=== PATIENT | female | born 1935 | race Caucasian/White ===

== ENCOUNTER 2019-02-17 17:22 | Observation (INO) | payer OTHER ==
[~2019-02-17] VITALS: Ht 157.5 cm; Wt 83.4 kg
[~2019-02-17 17:22] MED LIST: ACET500 PO; ASCO500 PO; Advil Pm Liqui1 EACH PO; Apple Cider Vi300 MG PO; CALCIUM 500 +1 EAC3 PO; CARV6.25 PO; CENTRUM SILVER1 EAC2 PO; CEPH500 PO; CLON1 PO; CYAN1000 PO; CYAN500 PO; CYCL10 PO; ESTRADIOL PO; FENO160 PO; FURO20; FURO20 PO; GABA300 PO; HYDACE5 PO; HYDR1TAB94 PO; LISI20 PO; LOVA40 PO; Norco 5-325 Ta1 EACH PO; OXYB5 PO; Omega 3 1,0001 EACH PO; Oyster Shell C500 MG PO; POTCHL10ER; PYRI100 PO; TRAZ100 PO; TRAZ50 PO; TRIE10TC TOP; VITAMIN D-32000 UNIT PO; VITAMIN D31 ML PO; Vitamin C100 M1 PO; ZOLP10 PO; ZOLPIDEM PO
[2019-02-17 17:37] LABS: Source, Urine Clean Catch
[2019-02-17 17:42] LABS: Bilirubin, Urine Neg (Neg); Blood, Urine 3+ (Neg); Glucose Qualitative, Urine Neg (Neg); Ketones, Urine Neg (Neg); Leukocyte Esterase, Urine 1+ (Neg); Nitrite, Urine Pos (Neg); Protein, Urine 1+ (Neg); Specific Gravity, Urine 1.015 (1.003-1.022); Urobilinogen, Urine NORM (Normal)
[2019-02-17 17:45] LABS: BASOPHILS PERCENT AUTO 1 % (0-2); EOSINOPHILS ABSOLUTE AUTO 0.35 K/mm3 (0.00-0.68); EOSINOPHILS PERCENT AUTO 3 % (0-6); Hematocrit 38.1 % (33.0-51.0); Hemoglobin 12.3 g/dL (11.5-16.0); IMMATURE GRAN ABSOLUTE AUTO 0.02 K/mm3 (0.00-0.10); IMMATURE GRAN PERCENT AUTO 0 % (0-1); LYMPHOCYTES PERCENT AUTO 26 % (21-46); MONOCYTES ABSOLUTE AUTO 0.85 K/mm3 (0.16-1.47); MONOCYTES PERCENT AUTO 8 % (4-13); Mean Corpuscular HGB 31.6 pg (26.0-34.0); Mean Corpuscular HGB Conc 32.3 g/dL (31.5-36.5); Mean Corpuscular Volume 98 fL (80-100); Mean Platelet Volume 9.2 fL (9.1-12.4); NEUTROPHILS ABSOLUTE AUTO 6.24 K/mm3 (1.96-9.15); NEUTROPHILS PERCENT AUTO 61 % (41-73); Platelet Count 305 K/mm3 (150-400); RDW Standard Deviation 46.3 fL (35.1-46.3); Red Blood Cell Count 3.89 M/mm3 (3.80-5.20); White Blood Cell Count 10.16 K/mm3 (4.00-11.30)
[2019-02-17 17:55] LABS: Appearance, Urine Clear (Clear); Color, Urine Yellow (P-Yellow)
[2019-02-17 17:56] LABS: Bacteria Many /hpf; Mucus Light (0-Heavy); Squamous Epithelial Cells Mod /hpf (Few)
[2019-02-17 18:04] LABS: U Amphetamine Screen Not Detected; U Barbituate Screen Not Detected; U Benzodiazapine Screen Not Detected; U Buprenorphine Screen Not Detected; U Cannabinoids Screen Not Detected; U Cocaine Screen Not Detected; U Methadone Screen Not Detected; U Methamphetamine Screen Not Detected; U Opiates Screen DETECTED; U Oxycodone Screen Not Detected; U Phencyclidine Screen Not Detected; U Propoxyphene Screen Not Detected
[2019-02-17 18:20] LABS: Alanine Aminotransfer (ALT/SGP 22 U/L (12-78); Albumin/Globulin Ratio 1.1 (0.8-1.8); Alk Phos 60 U/L (50-136); Anion Gap 5 mmol/L (6-16); Aspartate Aminotrans (AST/SGOT 16 U/L (12-37); Bilirubin, Total 0.5 mg/dL (0.1-1.0); Blood Urea Nitrogen 11 mg/dL (8-24); Bun/Creatinine Ratio 14.5 (12.0-20.0); CO2, Blood 27 mmol/L (21-32); Calcium, Blood 9.3 mg/dL (8.5-10.1); Chloride, Blood 104 mmol/L (98-108); Creatinine, Blood 0.76 mg/dL (0.40-1.00); Globulin, Blood 3.5 g/dL (2.2-4.0); Glomerular Filtration Rate >60 (60-); Glucose, Blood 99 mg/dL (70-99); Potassium, Blood 4.1 mmol/L (3.5-5.5); Salicylate <1.7 mg/dL (2.8-20.0); Sodium, Blood 136 mmol/L (136-145); Total Protein, Blood 7.5 g/dL (6.4-8.2)
[2019-02-17 18:21] LABS: Acetaminophen, Random 17.1 ug/mL (10.0-30.0); Ethanol (Alcohol), Blood, Med <3 mg/dL
--- NOTE | 2019-02-17 22:12 | NUR ---
RECEIVED REPORT FROM CHITO BAEZA RN. PT ARRIVED TO RM 333 VIA W/C. 1PA TO BED. ALERT AND ORIENTED TO PERSON,PLACE, AND FAMILY. RESP E/U ON RA. NO COMPLAINTS OF PAIN OR NAUSEA. PT ORIENTED TO CALL LT SYSTEM. CALL LT PLACED WITHIN REACH. BED ALARM ON FOR SAFETY. WILL CONTINUE TO MONITOR AND PROVIDE CARE.
--- NOTE | 2019-02-18 02:04 | NUR ---
PT CRYING IN BED, STATES SHE DOESN'T LIKE TO BE ALONE IN THE HOSPITAL. REASSURED PT THAT STAFF WOULD RESPOND TO HER NEEDS AND SHE WASN'T ALONE AND THAT HER FAMILY WOULD COME THIS MORNING. PT WORRIED THEY WON'T BE ABLE TO FIND HER, REASSURED PT THAT THEY WOULD FIND HER. CUP OF HOT COCOA GIVEN TO PT PER REQUEST, PT HOPES THIS WILL HAVE HER GO TO SLEEP. BED ALARM ON. CALL LT IN REACH.
--- NOTE | 2019-02-18 04:26 | NUR ---
SHIFT SUMMARY: ER ADMIT LAST NIGHT AT 2212. ALERT AND ORIENTED. APPEARS MENTATION HAS CLEARED. PT WAS ABLE TO ANSWER QUESTIONS APPROPRIATELY. VSS. 1 ASSIST TO THE BATHROOM USING FWW. CHRONIC ARTHRITIC PAIN TO HER JOINTS. MEDICATED WITH FENTANYL 25 MCG IV X 2 WITH SMALL PAIN RELIEF. REPOSITIONED PT FOR COMFORT T/O THE SHIFT. NO ACUTE CHANGES. WILL CONTINUE TO MONITOR AND PROVIDE CARE UNTIL SHIFT REPORT TO ONCOMING NURSE.
--- NOTE | 2019-02-18 04:49 | NUR ---
PT TEARFUL, MISSING HER FAMILY. WANTS TO GO HOME. SHE STATES CRYING MAKES HER FEEL BETTER. CALL LT IN REACH.
[2019-02-18 05:00] LABS: Hematocrit 35.2 % (33.0-51.0); Hemoglobin 11.3 g/dL (11.5-16.0); Mean Corpuscular HGB 31.6 pg (26.0-34.0); Mean Corpuscular HGB Conc 32.1 g/dL (31.5-36.5); Mean Corpuscular Volume 98 fL (80-100); Mean Platelet Volume 9.6 fL (9.1-12.4); Platelet Count 272 K/mm3 (150-400); RDW Coefficient Variation 12.7 % (11.7-14.2); RDW Standard Deviation 45.9 fL (35.1-46.3); Red Blood Cell Count 3.58 M/mm3 (3.80-5.20); White Blood Cell Count 9.99 K/mm3 (4.00-11.30)
[2019-02-18 05:20] LABS: Alanine Aminotransfer (ALT/SGP 22 U/L (12-78); Albumin, Blood 3.3 g/dL (3.4-5.0); Albumin/Globulin Ratio 1.1 (0.8-1.8); Alk Phos 55 U/L (50-136); Anion Gap 4 mmol/L (6-16); Aspartate Aminotrans (AST/SGOT 19 U/L (12-37); Bilirubin, Total 0.4 mg/dL (0.1-1.0); Blood Urea Nitrogen 13 mg/dL (8-24); Bun/Creatinine Ratio 15.9 (12.0-20.0); CO2, Blood 29 mmol/L (21-32); Calcium, Blood 8.8 mg/dL (8.5-10.1); Chloride, Blood 107 mmol/L (98-108); Creatinine, Blood 0.82 mg/dL (0.40-1.00); Globulin, Blood 3.1 g/dL (2.2-4.0); Glomerular Filtration Rate >60 (60-); Glucose, Blood 102 mg/dL (70-99); Potassium, Blood 3.8 mmol/L (3.5-5.5); Sodium, Blood 140 mmol/L (136-145); Total Protein, Blood 6.4 g/dL (6.4-8.2)
--- NOTE | 2019-02-18 05:34 | NUR ---
PT QUIETLY RESTING AT THIS TIME. CALL LT IN REACH.
[2019-02-18] MEDS ORDERED: TRAM50 PO (12:50)
--- NOTE | 2019-02-18 14:38 | NUR ---
PT TO DISCHARGE HOME. IV REMOVED . FIELD START. NURSE WENT OVER MEDICATIONS WITH PATIENT AND FAMILY AND STRESSED THE IMPORTANCE OF ONLY TAKING HER PAIN MEDS NOT HER SO'S NARCOTICS. FAMILY AND PATIENT BOTH EXPRESSED UNDERSTANDING. PATIENT WC'D DOWN TO CAR TO BE TAKEN HOME BY FAMILY. HARD SCRIPT GIVEN TO SON TO SENIOR [facility] AT PHARMACY.
== END 2019-02-18 15:15 | disposition home or self-care (01) ==
LOC: ER 17:22 → MEDS 17:23
PROVIDERS: Emergency Medicine; ADMIT Internal Medicine
DX: G92 Toxic encephalopathy (principal); E86.0 Dehydration; E78.5 Hyperlipidemia, unspecified; I10 Essential (primary) hypertension; M54.9 Dorsalgia, unspecified; G89.29 Other chronic pain; R53.1 Weakness; M16.11 Unilateral primary osteoarthritis, right hip; Z79.899 Other long term (current) drug therapy; Z88.2 Allergy status to sulfonamides; Z86.79 Personal history of other diseases of the circulatory system
CPT/HCPCS: 36415; 70450; 71046; 80053; 81001; 83605; 85025; 85027; 87040; 87077; 87086; 87186; 93005; 93010; 96365; 96372; 96375; 96376; 97116; 97161; 99285-25; G0378; G0480; J0696; J1650; J3010; J7030

== ENCOUNTER 2019-06-05 10:19 | Inpatient (IN) | payer OTHER ==
[~2019-06-05] VITALS: Ht 152.4 cm; Wt 82.6 kg
[~2019-06-05 10:19] MED LIST changes: +TRAM50 PO
[2019-06-05 12:09] LABS: BASOPHILS ABSOLUTE AUTO 0.09 K/mm3 (0.00-0.23); BASOPHILS PERCENT AUTO 1 % (0-2); EOSINOPHILS ABSOLUTE AUTO 0.35 K/mm3 (0.00-0.68); EOSINOPHILS PERCENT AUTO 4 % (0-6); Hematocrit 39.9 % (33.0-51.0); Hemoglobin 12.6 g/dL (11.5-16.0); IMMATURE GRAN ABSOLUTE AUTO 0.03 K/mm3 (0.00-0.10); IMMATURE GRAN PERCENT AUTO 0 % (0-1); LYMPHOCYTES ABSOLUTE AUTO 1.66 K/mm3 (0.84-5.20); LYMPHOCYTES PERCENT AUTO 17 % (21-46); MONOCYTES ABSOLUTE AUTO 0.61 K/mm3 (0.16-1.47); MONOCYTES PERCENT AUTO 6 % (4-13); Mean Corpuscular HGB Conc 31.6 g/dL (31.5-36.5); Mean Corpuscular Volume 98 fL (80-100); Mean Platelet Volume 9.8 fL (9.1-12.4); NEUTROPHILS ABSOLUTE AUTO 6.97 K/mm3 (1.96-9.15); NEUTROPHILS PERCENT AUTO 72 % (41-73); Platelet Count 304 K/mm3 (150-400); RDW Coefficient Variation 12.4 % (11.7-14.2); RDW Standard Deviation 45.1 fL (35.1-46.3); Red Blood Cell Count 4.06 M/mm3 (3.80-5.20); White Blood Cell Count 9.71 K/mm3 (4.00-11.30)
[2019-06-05 12:27] LABS: Anion Gap 5 mmol/L (6-16); Blood Urea Nitrogen 10 mg/dL (8-24); Bun/Creatinine Ratio 12.9 (12.0-20.0); CO2, Blood 30 mmol/L (21-32); Calcium, Blood 9.6 mg/dL (8.5-10.1); Chloride, Blood 104 mmol/L (98-108); Creatinine, Blood 0.77 mg/dL (0.40-1.00); Glomerular Filtration Rate >60 (60-); Glucose, Blood 77 mg/dL (70-99); Potassium, Blood 4.2 mmol/L (3.5-5.5); Sodium, Blood 139 mmol/L (136-145)
--- NOTE | 2019-06-13 07:15 | NUR ---
Ambulatory in Day Surgery History, Chart, Medications and Allergies reviewed before start of procedure. Lungs clear T/O to Auscultation. Patient confirms NPO status and agrees with scheduled surgery. Pre-Op teaching done. Pt verbalizes understanding.
--- NOTE | 2019-06-13 10:50 | NUR ---
PT ARRIVED FROM PACU TO SURGICAL FLOOR AT 1015 TODAY VIA HOSPITAL BED. POD 0 S/P RIGHT REINALDO; BULKY DRESSING C/D/I W/POLAR PACK IN PLACE. A/OX4 WITH VSS, ABLE TO WIGGLE FINGERS/TOES, HAS IVF RUNNING PER ORDERS. DENIES SOB, N/T, CP OR ANY DISCOMFORT. SCD'S AND CORNELL'S TO BLE IN PLACE. TOLERATING CL. CURRENTLY VISITING W/ SO AND HAS CALL LIGHT IN REACH.
--- NOTE | 2019-06-13 14:03 | NUR ---
PT WORKING WITH THERAPY AT THIS TIME
--- NOTE | 2019-06-13 18:00 | NUR ---
SHIFT SUMMARY POD 0 S/P RIGHT REINALDO, BULKY DRESSING C/D/I WITH NO DRAINAGE NOTED. POLAR PACK, CORNELL, SCD IN PLACE. TOLERATED REGULAR DIET, DENIES N/V. PAIN MANAGED WITH PO MEDICATION. WORKED WITH THERAPY. UP IN CHAIR AND WALKING WITH FWW. IS CURRENTLY WATCHING TV IN CHAIR AND VISITING WITH S/O. WILL CONT TO MONITOR AND GIVE REPORT TO ONCOMING RN.
--- NOTE | 2019-06-14 04:08 | NUR ---
SHIFT SUMMARY: PT POD#1 FOR RT REINALDO. DRESSING CDI X3 WITH POLAR PACK IN PLACE. VSS. PT RESTING MOST OF SHIFT AND DENIES PAIN. PT GIVEN SCHED TYLENOL FOR PAIN MANAGEMENT. REFUSING TORADOL. OUT OF BED SEVERAL TIMES TO BATHROOM WITH ONE ASSIST AND FWW. VOIDING WELL. ELEUTERIO PO AND DENIES N/V. PLAN FOR POSSIBLE DISCHARGE TODAY WITH HOME HEALTH.
[2019-06-14 05:50] LABS: BASOPHILS ABSOLUTE AUTO 0.02 K/mm3 (0.00-0.23); BASOPHILS PERCENT AUTO 0 % (0-2); EOSINOPHILS PERCENT AUTO 0 % (0-6); Hematocrit 28.9 % (33.0-51.0); Hemoglobin 9.3 g/dL (11.5-16.0); IMMATURE GRAN ABSOLUTE AUTO 0.05 K/mm3 (0.00-0.10); IMMATURE GRAN PERCENT AUTO 0 % (0-1); LYMPHOCYTES ABSOLUTE AUTO 1.44 K/mm3 (0.84-5.20); LYMPHOCYTES PERCENT AUTO 10 % (21-46); MONOCYTES ABSOLUTE AUTO 1.16 K/mm3 (0.16-1.47); MONOCYTES PERCENT AUTO 8 % (4-13); Mean Corpuscular HGB 30.9 pg (26.0-34.0); Mean Corpuscular HGB Conc 32.2 g/dL (31.5-36.5); Mean Corpuscular Volume 96 fL (80-100); Mean Platelet Volume 9.8 fL (9.1-12.4); NEUTROPHILS ABSOLUTE AUTO 11.11 K/mm3 (1.96-9.15); NEUTROPHILS PERCENT AUTO 81 % (41-73); Platelet Count 239 K/mm3 (150-400); RDW Coefficient Variation 12.4 % (11.7-14.2); RDW Standard Deviation 42.9 fL (35.1-46.3); Red Blood Cell Count 3.01 M/mm3 (3.80-5.20); White Blood Cell Count 13.78 K/mm3 (4.00-11.30)
[2019-06-14 06:07] LABS: Magnesium, Blood 1.5 mg/dL (1.6-2.4)
[2019-06-14 06:08] LABS: Anion Gap 5 mmol/L (6-16); Blood Urea Nitrogen 12 mg/dL (8-24); Bun/Creatinine Ratio 14.7 (12.0-20.0); CO2, Blood 27 mmol/L (21-32); Calcium, Blood 8.4 mg/dL (8.5-10.1); Chloride, Blood 105 mmol/L (98-108); Creatinine, Blood 0.82 mg/dL (0.40-1.00); Glomerular Filtration Rate >60 (60-); Glucose, Blood 118 mg/dL (70-99); Potassium, Blood 4.3 mmol/L (3.5-5.5); Sodium, Blood 137 mmol/L (136-145)
--- NOTE | 2019-06-14 10:38 | NUR ---
06/14/19 1038 Magda Gamboa VERIFICATIONS: EDIT CHART.
[2019-06-14] MEDS ORDERED: ACET500 PO (11:04)
[2019-06-14] MEDS ORDERED: DOCU100 PO (11:06)
[2019-06-14] MEDS ORDERED: ASPI325EC PO (11:06)
--- NOTE | 2019-06-14 11:49 | NUR ---
PATIENT D/C'D TO HOME WITH SO AT THIS TIME. PATIENT STATES UNDERSTANDING OF MEDS, WOUND CARE, ACTIVITY AND PRECAUTIONS, F/U APPT, ETC. [employer] STAFF MEMBER HERE TO SEE PATIENT BEFORE SHE DISCHARGED. PATIENT STATES MINIMAL PAIN WITH PO PAIN MED. TOLERATING PO. VOIDING. CIRC CHECKS TO RLE WNL. DRESSING D&I. NO ACUTE CHANGES OR C/O AT THIS TIME.
== END 2019-06-14 11:49 | disposition home or self-care (01) | DRG 470 ==
LOC: PRE 10:19 → SURS 06-13 05:43 → EDSTATUS 06-13 07:30 → ORSCMMR 06-13 07:30 → PRE IP 06-13 07:30 → SURS 06-13 10:13
PROVIDERS: ADMIT Orthopaedic Surgery
PROC: 0SR904A Replacement of Right Hip Joint with Ceramic on Polyethylene Synthetic Substitute, Uncemented, Open Approach (ICD-10-PCS; principal; 2019-06-13 07:30)
DX: M87.051 Idiopathic aseptic necrosis of right femur (principal); G89.29 Other chronic pain; G62.9 Polyneuropathy, unspecified; I10 Essential (primary) hypertension; E66.9 Obesity, unspecified; Z68.35 Body mass index [BMI] 35.0-35.9, adult; Z88.2 Allergy status to sulfonamides
CPT/HCPCS: 36415; 72170; 80048; 83735; 85025; 88300; 97110; 97116; 97162; 97166; 97535; C1713; C1776; J0171; J0690; J0735; J1100; J1885; J2250; J2405; J2704; J2710; J2795; J3010; J3370; J3475; J7120

== ENCOUNTER 2019-07-24 14:53 | Emergency (ER) | payer OTHER ==
[~2019-07-24] VITALS: Ht 154.9 cm; Wt 80.7 kg
[~2019-07-24 14:53] MED LIST changes: +ASPI325EC PO; +DOCU100 PO
[2019-07-24] MEDS ORDERED: TOCO1000 PO (15:28)
[2019-07-24] MEDS ORDERED: LEVO750 PO (15:44)
== END 2019-07-24 15:51 | disposition home or self-care (01) ==
LOC: ER 14:53
DX: J18.9 Pneumonia, unspecified organism (principal); I10 Essential (primary) hypertension; Z88.2 Allergy status to sulfonamides; Z79.899 Other long term (current) drug therapy
CPT/HCPCS: 99283

== ENCOUNTER 2020-01-07 12:26 | Day surgery (SDC) | payer OTHER ==
[~2020-01-07 12:26] MED LIST changes: +CALCIUM PO; +FISH OIL PO; +LEVO750 PO; +Neurontin 300300 MG PO; +OXYB5ER PO; +TOCO1000 PO; +VITAMIN B12 PO; +VITAMIN B6 PO; +VITAMIN D325 MC3 PO; +ZESTRIL40 MG PO
== END 2020-01-07 22:58 | disposition home or self-care (01) ==
LOC: RAD 12:26 → CT 15:00 → RAD 22:58
DX: M19.011 Primary osteoarthritis, right shoulder (principal)
CPT/HCPCS: 20610; 73201; 77002; A9577; Q9967

== ENCOUNTER 2020-02-08 14:23 | Inpatient (IN) | payer OTHER ==
[~2020-02-08] VITALS: Ht 152.4 cm; Wt 85.4 kg
--- NOTE | 2020-02-13 07:30 | NUR ---
History, Chart, Medications and Allergies reviewed before start of procedure. Lungs clear T/O to Auscultation. Patient confirms NPO status and agrees with scheduled surgery. Pre-Op teaching done. Pt verbalizes understanding. Patient reports completing Chlorhexadine shower X2 prior to admission to hospital.
--- NOTE | 2020-02-13 17:37 | NUR ---
SUMMARY PT DENIES PAIN, NUMBNESS OR TINGLING TO RIGHT ARM. DRESSING TO RIGHT SHOULDER DRY AND INTACT. SKIN WARM AND PINK TO RIGHT ARM. PT UP IN ROOM WITH STANDBY ASSIST AND USE OF CANE PT VOIDING CLEAR YELLOW URINE POST OP
[2020-02-14 05:11] LABS: BASOPHILS ABSOLUTE AUTO 0.04 K/mm3 (0.00-0.23); BASOPHILS PERCENT AUTO 0 % (0-2); EOSINOPHILS ABSOLUTE AUTO 0.02 K/mm3 (0.00-0.68); EOSINOPHILS PERCENT AUTO 0 % (0-6); Hematocrit 30.9 % (33.0-51.0); Hemoglobin 9.8 g/dL (11.5-16.0); IMMATURE GRAN ABSOLUTE AUTO 0.04 K/mm3 (0.00-0.10); IMMATURE GRAN PERCENT AUTO 0 % (0-1); LYMPHOCYTES ABSOLUTE AUTO 1.56 K/mm3 (0.84-5.20); LYMPHOCYTES PERCENT AUTO 13 % (21-46); MONOCYTES ABSOLUTE AUTO 1.11 K/mm3 (0.16-1.47); MONOCYTES PERCENT AUTO 9 % (4-13); Mean Corpuscular HGB 30.3 pg (26.0-34.0); Mean Corpuscular HGB Conc 31.7 g/dL (31.5-36.5); Mean Corpuscular Volume 96 fL (80-100); Mean Platelet Volume 10.2 fL (9.1-12.4); NEUTROPHILS ABSOLUTE AUTO 9.01 K/mm3 (1.96-9.15); NEUTROPHILS PERCENT AUTO 77 % (41-73); Platelet Count 235 K/mm3 (150-400); RDW Coefficient Variation 13.5 % (11.7-14.2); RDW Standard Deviation 47.8 fL (35.1-46.3); Red Blood Cell Count 3.23 M/mm3 (3.80-5.20); White Blood Cell Count 11.78 K/mm3 (4.00-11.30)
[2020-02-14 05:34] LABS: Anion Gap 8 mmol/L (6-16); Blood Urea Nitrogen 15 mg/dL (8-24); Bun/Creatinine Ratio 16.4 (12.0-20.0); CO2, Blood 23 mmol/L (21-32); Calcium, Blood 8.2 mg/dL (8.5-10.1); Chloride, Blood 103 mmol/L (98-108); Creatinine, Blood 0.92 mg/dL (0.40-1.00); Glomerular Filtration Rate >60 (60-); Glucose, Blood 99 mg/dL (70-99); Magnesium, Blood 1.8 mg/dL (1.6-2.4); Potassium, Blood 4.5 mmol/L (3.5-5.5); Sodium, Blood 134 mmol/L (136-145)
--- NOTE | 2020-02-14 07:13 | NUR ---
SHIFT SUMMARY POD 1 RIGHT TSA, AQUACEL CDI. IMMOBILIZER AND POLAR [place] TO RIGHT SHOULDER IN PLACE. PT ELEUTERIO PO INTAKE. REPORTS PAIN ELEUTERIO, MEDICATED X1 PER EMAR. AMBULATING IN HALLWAY WITH SBA. ABX/IVF INFUSED PER ORDERS. PT EAGER FOR DC TODAY. PLAN FOR THERAPY TODAY AND DC HOME. PT CURRENTLY UP IN CHAIR WATCHING TV. HAS CALL LIGHT IN REACH. WILL CONT TO MONITOR AND GIVE REPORT TO ONCOMING RN.
[2020-02-14] MEDS ORDERED: LINE600 PO (12:22)
[2020-02-14] MEDS ORDERED: OXYC5 PO (12:46)
[2020-02-14] MEDS ORDERED: PROM25 PO (12:47)
--- NOTE | 2020-02-14 15:25 | NUR ---
PATIENT D/C'D HOME WITH SO AT THIS TIME. R SHOULDER DRESSING D&I. CIRC CHECKS WNL. PATIENT STATES MINIMAL PAIN. TOLERATING PO. VOIDING, UP TO BR, STEADY ON FEET. PATIENT STATES UNDERSTANDING OF MEDS, WOUND CARE, ACTIVITY, F/U APPT, SAFETY, ETC.
== END 2020-02-14 15:25 | disposition home or self-care (01) | DRG 483 ==
LOC: SURS 02-13 06:02 → PRE IP 02-13 07:30 → SURS 02-13 11:25
PROVIDERS: ADMIT Orthopaedic Surgery
PROC: 0RRJ00Z Replacement of Right Shoulder Joint with Reverse Ball and Socket Synthetic Substitute, Open Approach (ICD-10-PCS; principal; 2020-02-13 07:30)
DX: M19.011 Primary osteoarthritis, right shoulder (principal); I10 Essential (primary) hypertension; M54.9 Dorsalgia, unspecified; E78.00 Pure hypercholesterolemia, unspecified; Z86.14 Personal history of Methicillin resistant Staphylococcus aureus infection
CPT/HCPCS: 36415; 73030; 80048; 83735; 85025; 88300; 97110; 97116; 97162; 97166; 97530; 97535; A9270; A9270-GY; C1713; C1776; J0171; J0696; J0735; J1100; J1885; J2250; J2370; J2405; J2704; J2710; J2795; J3010; J3370; J7120; Q2038

== ENCOUNTER 2021-08-07 21:19 | Inpatient (IN) | payer OTHER ==
[~2021-08-07] VITALS: Ht 154.9 cm; Wt 86.6 kg
[~2021-08-07 21:19] MED LIST changes: +ATOR40TA PO; +ELIQUIS5 M2 PO; +FURO40 PO; +LINE600 PO; +MELATONIN1010 PO; +OXYC5 PO; +POTA10T PO; +PROM25 PO
[2021-08-07] MEDS ORDERED: CALCIUM (21:36)
[2021-08-07] MEDS ORDERED: GABA300 PO (21:37)
[2021-08-07] MEDS ORDERED: MYRBETRIQ25 MG PO (21:39)
[2021-08-07] MEDS ORDERED: MYRBETRIQ50 MG PO (21:40)
[2021-08-07] MEDS ORDERED: TRAZ150T57 PO (21:41)
[2021-08-07 21:56] LABS: BASOPHILS ABSOLUTE AUTO 0.08 K/mm3 (0.00-0.23); BASOPHILS PERCENT AUTO 1 % (0-2); EOSINOPHILS PERCENT AUTO 3 % (0-6); Hematocrit 33.8 % (33.0-51.0); Hemoglobin 10.9 g/dL (11.5-16.0); IMMATURE GRAN ABSOLUTE AUTO 0.06 K/mm3 (0.00-0.10); IMMATURE GRAN PERCENT AUTO 1 % (0-1); LYMPHOCYTES ABSOLUTE AUTO 1.83 K/mm3 (0.84-5.20); LYMPHOCYTES PERCENT AUTO 19 % (21-46); MONOCYTES ABSOLUTE AUTO 0.79 K/mm3 (0.16-1.47); MONOCYTES PERCENT AUTO 8 % (4-13); Mean Corpuscular HGB 30.4 pg (26.0-34.0); Mean Corpuscular HGB Conc 32.2 g/dL (31.5-36.5); Mean Corpuscular Volume 94 fL (80-100); Mean Platelet Volume 9.7 fL (9.1-12.4); NEUTROPHILS ABSOLUTE AUTO 6.68 K/mm3 (1.96-9.15); NEUTROPHILS PERCENT AUTO 69 % (41-73); Platelet Count 236 K/mm3 (150-400); RDW Coefficient Variation 14.1 % (11.7-14.2); RDW Standard Deviation 49.2 fL (35.1-46.3); Red Blood Cell Count 3.59 M/mm3 (3.80-5.20); White Blood Cell Count 9.74 K/mm3 (4.00-11.30)
[2021-08-07 22:09] LABS: Albumin, Blood 3.7 g/dL (3.4-5.0); Albumin/Globulin Ratio 1.1 (0.8-1.8); Bilirubin, Total 0.5 mg/dL (0.1-1.0); Calcium, Blood 9.2 mg/dL (8.5-10.1); Creatinine, Blood 1.24 mg/dL (0.40-1.00); Globulin, Blood 3.3 g/dL (2.2-4.0); Potassium, Blood 4.3 mmol/L (3.5-5.5)
[2021-08-07 23:37] LABS: Magnesium, Blood 1.7 mg/dL (1.6-2.4)
[2021-08-08 03:57] LABS: Bun/Creatinine Ratio 22.8 (12.0-20.0); Calcium, Blood 9.5 mg/dL (8.5-10.1); Creatinine, Blood 1.14 mg/dL (0.40-1.00); Potassium, Blood 3.6 mmol/L (3.5-5.5)
--- NOTE | 2021-08-08 06:28 | NUR ---
SHIFT SUMMARY ASSUMED CARE OF PT AT 0200. PT IS A/OX4. HEART SOUNDS IRREGULAR. TELE SHOWS AFIB. LUNG SOUNDS HAVE FINE CRAKLES AT THE BASES. PT CAME TO FLOOR WITH 3L NC. PT WAS TITRATED OFF O2 BUT DESATURATED TO 85% WHILE IN A DEEP SLEEP. PT WAS PLACED BACK ON 2L NC. PT STATES SHE IS FEELING MUCH BETTER AND BREATHING BETTER. PT WAS ABLE TO GET TO BSC WITH ALMOST NO SOB. PT HAS YEAST IN THE FOLDS OF HER ABD. PT STATES SHE USES MEDICATED CREAM AND CORNSTARCH AT HOME. HOSPITALIST NOTIFED AND REVEIWED CHART; MEDICATION ORDRED APPROPIATLY.
[2021-08-08] MEDS ORDERED: METO100ER PO (17:16)
--- NOTE | 2021-08-08 17:16 | NUR ---
PHONE CALL TO DR. CLARKE. HR INCREASED OVER THE LAST 20 MINUTES, SUSTAININING 120-147. PER DR. CLARKE GIVEN PM DOSE OF METOPROLOL NOW AND CONTINUE TO MONITOR.
--- NOTE | 2021-08-08 18:03 | NUR ---
SHIFT SUMMARY; ASSUMED CARE AT 0700. A/A/OX4, UP TO RECLINER FOR MEALS INDEPENDANTLY. HR T/O SHIFT 80-100'S AFIB. SEE PREVIOUS NOTE FOR EVENING INCREASE IN HR. MEDICATED PER ORDERS, WILL CONTINUE TO MONITOR UNTIL PT DISCHARGE AT 1999. NO OTHER ACUTE CHANGES DURING SHIFT.
--- NOTE | 2021-08-08 18:49 | NUR ---
TELEPHONE CALL FROM DR. CLARKE. WILL KEEP PT OVERNIGHT TO MONITOR HR. VERBAL ORDER FOR METOPROLOL TARTRATE 75MG BID WITH FIRST DOSE NOW. CLARIFIED WITH DR. CLARKE EVENINING METOPROLOL GIVEN EARLY PER PREVIOUS ORDER.
--- NOTE | 2021-08-09 07:04 | NUR ---
Overnight without issues, VSS, HR remained therapeutic all night, room air, will monitor
[2021-08-09 08:45] LABS: Bun/Creatinine Ratio 22.9 (12.0-20.0); Calcium, Blood 9.4 mg/dL (8.5-10.1); Creatinine, Blood 1.09 mg/dL (0.40-1.00); Potassium, Blood 3.8 mmol/L (3.5-5.5)
--- NOTE | 2021-08-09 17:36 | NUR ---
SHIFT SUMMARY; ASSUMED CARE AT 0700. A/A/OX4, INDEPENDANT TO CHAIR AND BSC. PLEASANT AND COOPERATIVE WITH CARE. AFIB 90-120. HEART INCREASES WITH EXERTION AND RECOVERS TO BASELINE QUICKLY. NO ACUTE CHANGES, WILL CONTINUE TO MONITOR.
--- NOTE | 2021-08-10 05:23 | NUR ---
End of shift summary Overnight went well, pt did have trouble falling asleep, her VSS, room air, no pain, mobility has improved, HR does get tachy in AFIB while ambulating, othereise HR stable 90-100s most the night, will monitor Gregory RN
[2021-08-10 06:08] LABS: BASOPHILS PERCENT AUTO 1 % (0-2); EOSINOPHILS ABSOLUTE AUTO 0.56 K/mm3 (0.00-0.68); EOSINOPHILS PERCENT AUTO 6 % (0-6); Hemoglobin 12.3 g/dL (11.5-16.0); IMMATURE GRAN ABSOLUTE AUTO 0.05 K/mm3 (0.00-0.10); IMMATURE GRAN PERCENT AUTO 1 % (0-1); LYMPHOCYTES ABSOLUTE AUTO 2.59 K/mm3 (0.84-5.20); LYMPHOCYTES PERCENT AUTO 27 % (21-46); MONOCYTES ABSOLUTE AUTO 1.04 K/mm3 (0.16-1.47); MONOCYTES PERCENT AUTO 11 % (4-13); Mean Corpuscular HGB 30.2 pg (26.0-34.0); Mean Corpuscular HGB Conc 32.4 g/dL (31.5-36.5); Mean Corpuscular Volume 93 fL (80-100); Mean Platelet Volume 9.5 fL (9.1-12.4); NEUTROPHILS ABSOLUTE AUTO 5.37 K/mm3 (1.96-9.15); NEUTROPHILS PERCENT AUTO 55 % (41-73); Platelet Count 279 K/mm3 (150-400); RDW Standard Deviation 48.2 fL (35.1-46.3); Red Blood Cell Count 4.07 M/mm3 (3.80-5.20); White Blood Cell Count 9.71 K/mm3 (4.00-11.30)
[2021-08-10 06:26] LABS: Bun/Creatinine Ratio 24.5 (12.0-20.0); Calcium, Blood 9.2 mg/dL (8.5-10.1); Creatinine, Blood 1.06 mg/dL (0.40-1.00); Potassium, Blood 3.6 mmol/L (3.5-5.5)
--- NOTE | 2021-08-10 08:45 | NUR ---
REPORT FROM PM RN, OOB IN CHAIR EATING, RESIDENT IN ROOM NOW, MAKES NEEDS KNOWN, CALL LIGHT WITH IN REACH
--- NOTE | 2021-08-10 13:32 | NUR ---
DR GONG ROUNDED, PATIENT TO BE DISCHARGED
[2021-08-10] MEDS ORDERED: METO25 PO (13:35)
[2021-08-10] MEDS ORDERED: MAGNESIUM OXID500 MG PO (13:37)
[2021-08-10] MEDS ORDERED: METO50 PO (13:46)
== END 2021-08-10 15:05 | disposition home or self-care (01) | DRG 291 ==
LOC: ER 21:19 → PCU 21:30
PROVIDERS: Emergency Medicine; Family Medicine; ADMIT Internal Medicine
DX: I13.0 Hypertensive heart and chronic kidney disease with heart failure and stage 1 through stage 4 chronic kidney disease, or unspecified chronic kidney disease (principal); I50.33 Acute on chronic diastolic (congestive) heart failure; J96.01 Acute respiratory failure with hypoxia; F11.20 Opioid dependence, uncomplicated; I48.91 Unspecified atrial fibrillation; N18.30 Chronic kidney disease, stage 3 unspecified; E66.01 Morbid (severe) obesity due to excess calories; M54.9 Dorsalgia, unspecified; G89.29 Other chronic pain; Z68.36 Body mass index [BMI] 36.0-36.9, adult; E78.5 Hyperlipidemia, unspecified; Z96.653 Presence of artificial knee joint, bilateral; Z96.612 Presence of left artificial shoulder joint; Z88.2 Allergy status to sulfonamides; Z28.21 Immunization not carried out because of patient refusal; Z79.899 Other long term (current) drug therapy; Z79.01 Long term (current) use of anticoagulants; Z98.890 Other specified postprocedural states
CPT/HCPCS: 36415; 71045; 80048; 80053; 83735; 83880; 84484; 85025; 93005; 93010; 96365; 96368; 96375; 96376; 99285-25; A9270; G0378; J1940; J3475

== ENCOUNTER 2021-10-26 13:35 | Inpatient (IN) | payer OTHER ==
[~2021-10-26] VITALS: Ht 154.9 cm; Wt 85.3 kg
[~2021-10-26 13:35] MED LIST changes: +CALCIUM; +MAGNESIUM OXID500 MG PO; +METO100ER PO; +METO25 PO; +METO50 PO; +MYRBETRIQ50 MG PO; +Prinivil10 MG PO; +TRAZ150T57 PO; -ZESTRIL40 MG PO
[2021-10-26 15:08] LABS: BASOPHILS ABSOLUTE AUTO 0.09 K/mm3 (0.00-0.23); BASOPHILS PERCENT AUTO 1 % (0-2); EOSINOPHILS ABSOLUTE AUTO 0.24 K/mm3 (0.00-0.68); EOSINOPHILS PERCENT AUTO 3 % (0-6); Hematocrit 38.1 % (33.0-51.0); Hemoglobin 12.4 g/dL (11.5-16.0); IMMATURE GRAN ABSOLUTE AUTO 0.02 K/mm3 (0.00-0.10); IMMATURE GRAN PERCENT AUTO 0 % (0-1); LYMPHOCYTES ABSOLUTE AUTO 1.86 K/mm3 (0.84-5.20); LYMPHOCYTES PERCENT AUTO 19 % (21-46); MONOCYTES ABSOLUTE AUTO 0.64 K/mm3 (0.16-1.47); MONOCYTES PERCENT AUTO 7 % (4-13); Mean Corpuscular HGB 30.3 pg (26.0-34.0); Mean Corpuscular HGB Conc 32.5 g/dL (31.5-36.5); Mean Corpuscular Volume 93 fL (80-100); Mean Platelet Volume 10.1 fL (9.1-12.4); NEUTROPHILS ABSOLUTE AUTO 6.88 K/mm3 (1.96-9.15); NEUTROPHILS PERCENT AUTO 71 % (41-73); Platelet Count 250 K/mm3 (150-400); RDW Coefficient Variation 14.9 % (11.7-14.2); RDW Standard Deviation 51.4 fL (35.1-46.3); Red Blood Cell Count 4.09 M/mm3 (3.80-5.20); White Blood Cell Count 9.73 K/mm3 (4.00-11.30)
[2021-10-26 15:17] LABS: Albumin/Globulin Ratio 1.1 (0.8-1.8); Bilirubin, Total 1.1 mg/dL (0.1-1.0); Bun/Creatinine Ratio 14.9 (12.0-20.0); Calcium, Blood 9.8 mg/dL (8.5-10.1); Creatinine, Blood 0.94 mg/dL (0.40-1.00); Globulin, Blood 3.6 g/dL (2.2-4.0); Potassium, Blood 4.5 mmol/L (3.5-5.5); Total Protein, Blood 7.6 g/dL (6.4-8.2)
[2021-10-27 02:20] LABS: Influenza A, PCR NEGATIVE (NEGATIVE); Influenza B, PCR NEGATIVE (NEGATIVE); Resp Syncytial Virus, PCR NEGATIVE (NEGATIVE); SARS-Cov-2 (COVID-19) PCR, MMC NEGATIVE (NEGATIVE)
[2021-10-27 04:10] LABS: Hematocrit 35.8 % (33.0-51.0); Hemoglobin 11.5 g/dL (11.5-16.0); Mean Corpuscular HGB 30.2 pg (26.0-34.0); Mean Corpuscular HGB Conc 32.1 g/dL (31.5-36.5); Mean Corpuscular Volume 94 fL (80-100); Mean Platelet Volume 9.6 fL (9.1-12.4); Platelet Count 270 K/mm3 (150-400); RDW Coefficient Variation 14.8 % (11.7-14.2); RDW Standard Deviation 50.7 fL (35.1-46.3); Red Blood Cell Count 3.81 M/mm3 (3.80-5.20); White Blood Cell Count 9.71 K/mm3 (4.00-11.30)
[2021-10-27 04:32] LABS: Bun/Creatinine Ratio 19.8 (12.0-20.0); Calcium, Blood 9.6 mg/dL (8.5-10.1); Creatinine, Blood 1.01 mg/dL (0.40-1.00); Potassium, Blood 3.5 mmol/L (3.5-5.5)
--- NOTE | 2021-10-27 06:15 | NUR ---
ADMIT NOTE AND SHIFT SUMMARY PT ARRIVED TO PCU FROM ED VIA ED STRETCHER AT APPROX 2000. PT WAS SLID FROM ED STRETCHER TO PCU BED BY 4 STAFF. PT A&OX4, ANXIOUS. PT STATED SHE WANTED TO GO HOME MIDNIGHT BECAUSE "ID BE MORE COMFORTABLE, THE BED MAKES MY BACK HURT". HEATING PAD PLACED BEHIND BACK AND TYLENOL GIVEN FOR C/O OF HEADACHE. SP02>92% ON MOSTLY RA, 1-2 NC FOR COMFORT PRN W/ MOVEMENT. TELEMETRY SHOWS AFIB, MOSTLY 90'S-110'S. PT HAD ELEVATED BP, CALL PLACED TO [facility]. W/ ORDERS FOR 5MG IV LOPRESSOR X1, W/ SUCCESS, REVIEW VITALS. FREQUENTLY VOIDED, C/D ATTENDS IN PLACE. NO BM THIS SHIFT. UP IN RECLINER HALF THE NIGHT, NOW IN BED RESTING.
--- NOTE | 2021-10-27 08:45 | NUR ---
INITIAL ASSESSMENT: Patient is sitting on the edge of the bed finishing eating breakfast. She is alert and oriented. She denies pain at this time. HR IRREG, She is in A-Fib at 117, this am at rest rate was in the 80s. LS Clear with some fine crackles in the bases. Biox is 89-93% on RA, pt has oxygen on top of her nose. Patient states she does not wear oxygen at home. Biox increases to mid 90s with 1l via nc. BT+. PPP. VSS. AM meds given with a sip of water. Patient states she would like to return home today, this RN informed her we would talk with the doctor during rounds. Patient denies other needs at this time. Call light in reach.
[2021-10-27 09:00] LABS: Magnesium, Blood 1.9 mg/dL (1.6-2.4); Thyroid Stimulating Hormone 2.26 uIU/mL (0.360-4.800)
[2021-10-27] MEDS ORDERED: LINEZOLID PO (09:52)
[2021-10-27] MEDS ORDERED: MYRBETRIQ25 MG PO (10:42)
--- NOTE | 2021-10-27 12:30 | NUR ---
MEDICATIONS VERIFIED WITH [facility], DR. JARRETT NOTIFIED. DISCHARGE ORDERS ARE IN. REVIEWED DISCHARGE INSTRUCTIONS WITH PATIENT, SHE VERBALIZES UNDERSTANDING. PLAN IS FOR PATIENT TO GO HOME WITH HOME HEALTH TO CHECK HER MEDICATIONS AND ASSIST WITH COMPLIANCE/EDUCATION. PT STATES SHE WILL EAT LUNCH, GET DRESSED, AND CALL HER SON.
--- NOTE | 2021-10-27 13:00 | NUR ---
PT DISCHARGED VIA WC WITH SON.
== END 2021-10-27 12:51 | disposition home or self-care (01) | DRG 309 ==
LOC: ER 13:35 → PCU 19:39
PROVIDERS: Family Medicine; Internal Medicine; ADMIT Internal Medicine
DX: I48.0 Paroxysmal atrial fibrillation (principal); I13.0 Hypertensive heart and chronic kidney disease with heart failure and stage 1 through stage 4 chronic kidney disease, or unspecified chronic kidney disease; I50.32 Chronic diastolic (congestive) heart failure; Z20.822 Contact with and (suspected) exposure to COVID-19; I16.0 Hypertensive urgency; N18.30 Chronic kidney disease, stage 3 unspecified; M54.9 Dorsalgia, unspecified; Z68.36 Body mass index [BMI] 36.0-36.9, adult; E78.5 Hyperlipidemia, unspecified; G89.29 Other chronic pain; E66.9 Obesity, unspecified; Z98.890 Other specified postprocedural states; Z91.14 Patient's other noncompliance with medication regimen; Z96.653 Presence of artificial knee joint, bilateral; Z96.641 Presence of right artificial hip joint; Z79.01 Long term (current) use of anticoagulants; Z79.899 Other long term (current) drug therapy
CPT/HCPCS: 0241U; 36415; 71045; 80048; 80053; 83735; 83880; 84443; 84484; 85025; 85027; 93005; 93010; 96374; 96375; 99285-25; A9270; J1940

== ENCOUNTER 2022-07-04 01:00 | Emergency (ER) | payer OTHER ==
[~2022-07-04] VITALS: Ht 154.9 cm; Wt 88.0 kg
[~2022-07-04 01:00] MED LIST changes: +KEFLEX250 MG PO; +LINEZOLID PO; +MYRBETRIQ25 MG PO
== END 2022-07-04 04:25 | disposition home or self-care (01) ==
LOC: ER 01:00
DX: G25.81 Restless legs syndrome (principal); R05.9 Cough, unspecified; I10 Essential (primary) hypertension; I48.91 Unspecified atrial fibrillation; Z88.2 Allergy status to sulfonamides; Z79.899 Other long term (current) drug therapy; Z79.82 Long term (current) use of aspirin
CPT/HCPCS: 71045

== ENCOUNTER 2022-07-28 15:02 | Emergency (ER) | payer OTHER ==
[~2022-07-28] VITALS: Ht 154.9 cm; Wt 88.9 kg
== END 2022-07-28 18:00 | disposition home or self-care (01) ==
LOC: ER 15:02
DX: R04.0 Epistaxis (principal); D68.32 Hemorrhagic disorder due to extrinsic circulating anticoagulants; T45.515A Adverse effect of anticoagulants, initial encounter; I10 Essential (primary) hypertension; Z79.01 Long term (current) use of anticoagulants
CPT/HCPCS: 99283

== ENCOUNTER 2022-08-04 07:25 | Day surgery (SDC) | payer OTHER ==
--- NOTE | 2022-08-04 08:12 | NUR ---
PT PREPPED FOR R/L HEART CATH, UNABLE TO LAY FLAT EASILY TODAY, DR MICHELE DISCUSSING PLAN OF CARE W PT NOW, PLAN IS TO CANCEL TODAY AND R/S WHEN PT IS MORE STABLE - NO IV WAS STARTED.
--- NOTE | 2022-08-04 08:37 | NUR ---
PT DRESSED, DAUGHTER IN LAW HERE TO DRIVE PT HOME, DC'D BY WC, PT VERBALIZES UNDERSTANDING TO RESTART ELIQUIS TODAY
== END 2022-08-04 08:35 | disposition home or self-care (01) ==
LOC: MHTC 07:25
DX: I50.810 Right heart failure, unspecified (principal); I07.1 Rheumatic tricuspid insufficiency; I51.89 Other ill-defined heart diseases; I48.91 Unspecified atrial fibrillation
CPT/HCPCS: J1644; J7030; J7050

== ENCOUNTER 2022-08-05 12:30 | Inpatient (IN) | payer OTHER ==
[~2022-08-05] VITALS: Ht 154.9 cm; Wt 93.0 kg
[2022-08-05 13:25] LABS: Source, Urine Straight Cath
[2022-08-05 13:49] LABS: Albumin, Blood 3.6 g/dL (3.4-5.0); Bilirubin, Total 1.1 mg/dL (0.1-1.0); Bun/Creatinine Ratio 14.2 (12.0-20.0); Calcium, Blood 9.2 mg/dL (8.5-10.1); Creatinine, Blood 0.92 mg/dL (0.40-1.00); Globulin, Blood 3.6 g/dL (2.2-4.0); Potassium, Blood 4.4 mmol/L (3.5-5.5); Total Protein, Blood 7.2 g/dL (6.4-8.2)
[2022-08-05 13:52] LABS: Appearance, Urine Hazy (Clear); Bilirubin, Urine Neg (Neg); Blood, Urine 3+ (Neg); Color, Urine Yellow (P-Yellow); Glucose Qualitative, Urine Neg (Neg); Ketones, Urine Neg (Neg); Leukocyte Esterase, Urine 2+ (Neg); Nitrite, Urine Pos (Neg); Protein, Urine 2+ (Neg); Urobilinogen, Urine NORM (Normal)
[2022-08-05 13:58] LABS: BASOPHILS ABSOLUTE AUTO 0.12 K/mm3 (0.00-0.23); BASOPHILS PERCENT AUTO 1 % (0-2); EOSINOPHILS ABSOLUTE AUTO 0.16 K/mm3 (0.00-0.68); EOSINOPHILS PERCENT AUTO 2 % (0-6); Hematocrit 34.7 % (33.0-51.0); Hemoglobin 10.4 g/dL (11.5-16.0); IMMATURE GRAN ABSOLUTE AUTO 0.05 K/mm3 (0.00-0.10); IMMATURE GRAN PERCENT AUTO 1 % (0-1); LYMPHOCYTES ABSOLUTE AUTO 1.58 K/mm3 (0.84-5.20); LYMPHOCYTES PERCENT AUTO 19 % (21-46); MONOCYTES PERCENT AUTO 9 % (4-13); Mean Corpuscular HGB 27.6 pg (26.0-34.0); Mean Corpuscular Volume 92 fL (80-100); Mean Platelet Volume 10.1 fL (9.1-12.4); NEUTROPHILS PERCENT AUTO 68 % (41-73); NRBC ABSOLUTE 0.02 K/mm3 (0.00-0.02); NRBC Auto 0.2 /100 WBC (0.0-0.2); Platelet Count 275 K/mm3 (150-400); RDW Coefficient Variation 18.1 % (11.7-14.2); RDW Standard Deviation 60.5 fL (35.1-46.3); Red Blood Cell Count 3.77 M/mm3 (3.80-5.20); White Blood Cell Count 8.51 K/mm3 (4.00-11.30)
[2022-08-05 14:28] LABS: Bacteria Many /hpf; Squamous Epithelial Cells Few /hpf (Few)
--- NOTE | 2022-08-06 03:42 | NUR ---
PT IS FEELING RESTLESS & UNABLE TO SLEEP, HOME DOSE OF TRAZADONE HAS BEEN GIVEN, PT REMAINS A&O, LOTION APPLIED TO FEET PER PT REQUEST, TYLENOL GIVEN FOR PAIN, HEATING PAD TO LOWER BACK, COLORING SUPPLIES GIVEN PER REQUEST. CALL LIGHT IN REACH, [facility]
[2022-08-06 04:11] LABS: BASOPHILS ABSOLUTE AUTO 0.12 K/mm3 (0.00-0.23); BASOPHILS PERCENT AUTO 2 % (0-2); EOSINOPHILS ABSOLUTE AUTO 0.26 K/mm3 (0.00-0.68); EOSINOPHILS PERCENT AUTO 3 % (0-6); Hematocrit 31.6 % (33.0-51.0); Hemoglobin 9.7 g/dL (11.5-16.0); IMMATURE GRAN ABSOLUTE AUTO 0.06 K/mm3 (0.00-0.10); IMMATURE GRAN PERCENT AUTO 1 % (0-1); LYMPHOCYTES ABSOLUTE AUTO 1.72 K/mm3 (0.84-5.20); LYMPHOCYTES PERCENT AUTO 22 % (21-46); MONOCYTES ABSOLUTE AUTO 0.96 K/mm3 (0.16-1.47); MONOCYTES PERCENT AUTO 12 % (4-13); Mean Corpuscular HGB 28.1 pg (26.0-34.0); Mean Corpuscular HGB Conc 30.7 g/dL (31.5-36.5); Mean Corpuscular Volume 92 fL (80-100); Mean Platelet Volume 10.5 fL (9.1-12.4); NEUTROPHILS ABSOLUTE AUTO 4.86 K/mm3 (1.96-9.15); NEUTROPHILS PERCENT AUTO 61 % (41-73); NRBC ABSOLUTE 0.03 K/mm3 (0.00-0.02); NRBC Auto 0.4 /100 WBC (0.0-0.2); Platelet Count 279 K/mm3 (150-400); RDW Coefficient Variation 18.3 % (11.7-14.2); RDW Standard Deviation 59.7 fL (35.1-46.3); Red Blood Cell Count 3.45 M/mm3 (3.80-5.20); White Blood Cell Count 7.98 K/mm3 (4.00-11.30)
[2022-08-06 04:37] LABS: Magnesium, Blood 1.8 mg/dL (1.6-2.4)
[2022-08-06 04:41] LABS: Albumin, Blood 3.5 g/dL (3.4-5.0); Albumin/Globulin Ratio 1.1 (0.8-1.8); Bilirubin, Total 0.8 mg/dL (0.1-1.0); Bun/Creatinine Ratio 12.9 (12.0-20.0); Calcium, Blood 8.8 mg/dL (8.5-10.1); Creatinine, Blood 1.01 mg/dL (0.40-1.00); Globulin, Blood 3.3 g/dL (2.2-4.0); Potassium, Blood 4.3 mmol/L (3.5-5.5); Total Protein, Blood 6.8 g/dL (6.4-8.2)
--- NOTE | 2022-08-06 05:06 | NUR ---
SHIFT SUMMARY NO ACUTE CHANGES NOTED THROUGH THE NIGHT, PT REMAINS A&O X3, VSS, AFIB 90-110'S, DENIES CP/PRESSURE, SPO2 >94% ON 2 LPM O2 VIA NC, RESP UNLABORED AT REST, DYSPNEA W/EXERTION, VOIDING WNL USING BSC, PT DID REQUEST TO HAVE A PUREWICK PLACED, SBA, TOLERATING PO INTAKE, DENIES NAUSEA, PAIN MNGD WITH PO TYLENOL, HEATING PAD & FREQUENT REPOSITIONING. PT IS CURRENTLY SITTING AT THE BEDSIDE, SHE HAS NOT BEEN ABLE TO SLEEP DESPITE HER DOSE OF TRAZADONE, CALL LIGHT IN REACH, WCTM & REPORT TO ONCOMING RN
--- NOTE | 2022-08-06 15:45 | NUR ---
UPDATE PT REMAINS ALERT AND ORIENTED. VS STABLE. TELEMETRY HAS BEEN DISCONTINUED, BUT PRIOR TO REMOVAL PT WAS IN AFIB 90'S. PT ON 1-2 L NC FOR COMFORT. PT DENIES ANY PAIN. PT UP WITH SBA FOR TRANSFER. REPORT GIVEN TO ABRAHAN BURKETT TO ASSUME CARE
--- NOTE | 2022-08-06 18:18 | NUR ---
SHIFT SUMMARY ASSUMED CARE OF PT AT APROX 1600 FROM ADELA BURKETT. PT HAS HAD NO COMPLAINTS, VSS, CONTINUES TO EDWARD PORRAS IN PLACE. PT WILL BE TRANSFERRING TO ROOM 344. PT IS ABLE TO USE CALL LIGHT FOR NEEDS, CALL LIGHT IN REACH, WILL CONTINUE TO MONITOR AND GIVE REPORT TO NOC SHIFT RN.
--- NOTE | 2022-08-06 19:16 | NUR ---
1840 RECEIVED PT TO 344 FROM [facility] 16 VIA W/C.
[2022-08-07] MEDS ORDERED: METO100ER PO (12:13)
--- NOTE | 2022-08-07 19:33 | NUR ---
SUMMARY- PT A/O X4, INDEPENDANT IN ROOM WITH CANE, STEADY ON FEET. WANTING TO BE DISCHARGED TO ASSISTED LIVING BUT AGREEABLE TO GO HOME WITH HOME HEALTH UNTIL [facility] LIVING AVAILABLE. PT HAS FINE CRACKLES IN THE BASES. +1LE EDEMA. CONTINUED DIURESING. TOLERATING FOOD AND FLUIDS. REPOETED ALL TO NOC KWADWO STEVENSON
--- NOTE | 2022-08-08 03:52 | NUR ---
SHIFT SUMMERY, PT MEICATED WITH TYLENOL BEFORE PT WENT TO SLEEP . PT C/O PAIN TO HER BACK. PT UP TO br WITH HER MCCANN. PT STEADY ON FEEET. PT ALERT AND ORIENTEDF TAKING MEDICATIONS WITH NO DIFFICULTY. PT SAT IN REACLINER FOR SOME TIME , BUT THEN LAYED DOWN IN TO BED TO SLEEP. PT SEEMS TO BE RESTING WELL. CALL LIGHT IN REACH.
[2022-08-08 05:03] LABS: Bun/Creatinine Ratio 17.4 (12.0-20.0); Calcium, Blood 8.9 mg/dL (8.5-10.1); Creatinine, Blood 0.86 mg/dL (0.40-1.00); Potassium, Blood 3.6 mmol/L (3.5-5.5)
[2022-08-08] MEDS ORDERED: Amoxicillin500 MG PO (11:14)
--- NOTE | 2022-08-08 15:24 | NUR ---
PT DISCHARGED 1255 WITH DC INSTRUCTIONS. DAUGHTER IN LAW TAKING PT HOME IN PRIVATE CAR.
== END 2022-08-08 12:52 | disposition home health service (06) | DRG 308 ==
LOC: ER 12:30 → PCU 16:31 → MEDS 08-06 18:55
PROVIDERS: Internal Medicine; Student in an Organized Health Care Education/Training Program; ADMIT Student in an Organized Health Care Education/Training Program
DX: I48.91 Unspecified atrial fibrillation (principal); J96.01 Acute respiratory failure with hypoxia; I50.32 Chronic diastolic (congestive) heart failure; N39.0 Urinary tract infection, site not specified; I50.813 Acute on chronic right heart failure; I35.0 Nonrheumatic aortic (valve) stenosis; Z51.5 Encounter for palliative care; R54 Age-related physical debility; I11.0 Hypertensive heart disease with heart failure; E78.5 Hyperlipidemia, unspecified; E66.01 Morbid (severe) obesity due to excess calories; B96.20 Unspecified Escherichia coli [E. coli] as the cause of diseases classified elsewhere; I67.1 Cerebral aneurysm, nonruptured; Z88.2 Allergy status to sulfonamides; Z79.01 Long term (current) use of anticoagulants; Z79.899 Other long term (current) drug therapy; Z79.811 Long term (current) use of aromatase inhibitors; Z79.02 Long term (current) use of antithrombotics/antiplatelets; Z79.2 Long term (current) use of antibiotics; Z98.890 Other specified postprocedural states; Z96.653 Presence of artificial knee joint, bilateral; Z96.612 Presence of left artificial shoulder joint; Z98.49 Cataract extraction status, unspecified eye; Z68.35 Body mass index [BMI] 35.0-35.9, adult
CPT/HCPCS: 36415; 51701; 71045; 74177; 76705; 80048; 80053; 81001; 83605; 83690; 83735; 83880; 85025; 87040; 87077; 87086; 87186; 93005; 93010; 94760; 94762; 96374-59; 96375-59; 97110; 97116; 97162; 97165; 97530; 97535; 99285-25; A9270; C8929; J0696; J1940; J7030; Q9957; Q9967

== ENCOUNTER 2023-02-15 14:12 | Inpatient (IN) | payer OTHER ==
[~2023-02-15] VITALS: Ht 149.9 cm; Wt 62.0 kg
[~2023-02-15 14:12] MED LIST changes: +Amoxicillin500 MG PO
[2023-02-15 15:31] LABS: Influenza A, PCR NEGATIVE (NEGATIVE); Influenza B, PCR NEGATIVE (NEGATIVE); Resp Syncytial Virus, PCR NEGATIVE (NEGATIVE)
[2023-02-15 15:34] LABS: SARS-Cov-2 (COVID-19) PCR, MMC POSITIVE (NEGATIVE)
[2023-02-15] MEDS ORDERED: ONDA4ODT MM (17:34)
[2023-02-15] MEDS ORDERED: BENZ100A PO (17:34)
[2023-02-15] MEDS ORDERED: PAXLOVID 150-11 EACH PO (17:42)
[2023-02-15 17:57] LABS: BASOPHILS ABSOLUTE AUTO 0.07 K/mm3 (0.00-0.23); BASOPHILS PERCENT AUTO 1 % (0-2); EOSINOPHILS ABSOLUTE AUTO 0.09 K/mm3 (0.00-0.68); EOSINOPHILS PERCENT AUTO 1 % (0-6); Hemoglobin 10.8 g/dL (11.5-16.0); IMMATURE GRAN ABSOLUTE AUTO 0.04 K/mm3 (0.00-0.10); IMMATURE GRAN PERCENT AUTO 0 % (0-1); LYMPHOCYTES ABSOLUTE AUTO 0.65 K/mm3 (0.84-5.20); LYMPHOCYTES PERCENT AUTO 7 % (21-46); MONOCYTES ABSOLUTE AUTO 0.58 K/mm3 (0.16-1.47); MONOCYTES PERCENT AUTO 6 % (4-13); Mean Corpuscular HGB 32.1 pg (26.0-34.0); Mean Corpuscular HGB Conc 32.7 g/dL (31.5-36.5); Mean Corpuscular Volume 98 fL (80-100); Mean Platelet Volume 10.2 fL (9.1-12.4); NEUTROPHILS ABSOLUTE AUTO 7.58 K/mm3 (1.96-9.15); NEUTROPHILS PERCENT AUTO 84 % (41-73); Platelet Count 176 K/mm3 (150-400); RDW Coefficient Variation 15.3 % (11.7-14.2); RDW Standard Deviation 54.4 fL (35.1-46.3); Red Blood Cell Count 3.36 M/mm3 (3.80-5.20); White Blood Cell Count 9.01 K/mm3 (4.00-11.30)
[2023-02-15 18:10] LABS: Bun/Creatinine Ratio 8.4 (12.0-20.0); Calcium, Blood 9.2 mg/dL (8.5-10.1); Creatinine, Blood 1.07 mg/dL (0.40-1.00)
[2023-02-16] VITALS (9 sets, daily range): BP systolic 143–180; BP diastolic 93–127
--- NOTE | 2023-02-16 04:38 | NUR ---
NOC SHIFT SUMMARY: PT ALERT AND ORIENTED X4. COVID-19 POSITIVE WITH BRONCHITIS. PATIENT CALLS APPRIOPRIATELY. PATIENT LIVES INDEPENDENTLY AT HOME. PATIENT IS ON 2L NC (USUALLY ROOM AIR).
[2023-02-16 06:46] LABS: BASOPHILS ABSOLUTE AUTO 0.05 K/mm3 (0.00-0.23); BASOPHILS PERCENT AUTO 1 % (0-2); EOSINOPHILS ABSOLUTE AUTO 0.23 K/mm3 (0.00-0.68); EOSINOPHILS PERCENT AUTO 3 % (0-6); Hematocrit 37.2 % (33.0-51.0); IMMATURE GRAN ABSOLUTE AUTO 0.07 K/mm3 (0.00-0.10); IMMATURE GRAN PERCENT AUTO 1 % (0-1); LYMPHOCYTES ABSOLUTE AUTO 0.38 K/mm3 (0.84-5.20); LYMPHOCYTES PERCENT AUTO 4 % (21-46); MONOCYTES ABSOLUTE AUTO 0.21 K/mm3 (0.16-1.47); MONOCYTES PERCENT AUTO 2 % (4-13); Mean Corpuscular HGB 31.7 pg (26.0-34.0); Mean Corpuscular HGB Conc 32.3 g/dL (31.5-36.5); Mean Corpuscular Volume 98 fL (80-100); Mean Platelet Volume 10.1 fL (9.1-12.4); NEUTROPHILS ABSOLUTE AUTO 8.33 K/mm3 (1.96-9.15); NEUTROPHILS PERCENT AUTO 90 % (41-73); Platelet Count 175 K/mm3 (150-400); RDW Coefficient Variation 15.5 % (11.7-14.2); RDW Standard Deviation 54.9 fL (35.1-46.3); Red Blood Cell Count 3.79 M/mm3 (3.80-5.20); White Blood Cell Count 9.27 K/mm3 (4.00-11.30)
[2023-02-16 07:07] LABS: Albumin, Blood 3.9 g/dL (3.4-5.0); Calcium, Blood 9.2 mg/dL (8.5-10.1); Globulin, Blood 4.1 g/dL (2.2-4.0); Potassium, Blood 4.2 mmol/L (3.5-5.5)
[2023-02-16 07:08] LABS: BASOPHILS PERCENT MAN 0 % (0-2); EOSINOPHILS PERCENT MAN 0 % (0-6); LYMPHOCYTES ABSOLUTE MAN 0.27 K/mm3 (0.84-5.20); LYMPHOCYTES PERCENT MAN 3 % (21-46); MONOCYTES ABSOLUTE MAN 0.18 K/mm3 (0.16-1.47); MONOCYTES PERCENT MAN 2 % (4-13); SEG NEUTROPHILS PERCENT MAN 95 % (41-73); TOTAL CELLS COUNTED 100
--- NOTE | 2023-02-16 07:45 | NUR ---
CALLED DR BROWN- PT RESP RATE ELEVATED, HR 130-160'S AFIB BP ELEVATED. PLAN TO GIVE AM MEDS EARLY. SPOKE TO DR BROWN ORDER TO GIVE IV METOPROLOL THEN RECHECK 30 MIN LATER AND GIVE PO MEDS.
--- NOTE | 2023-02-16 08:45 | NUR ---
CALLED DR BROWN- PT HR 120-150'S AFIB RESP RATE 40, BP 180'S/120'S. RESP RATE SO RAPID PT HAS TO BREATHE BETWEEN WORDS, CONCERN FOR ASPIRATION WITH PO MEDS. CALLED MD TO SPEAK TO HER ABOUT THE PT. ORDER RECIEVED TO TRANSFER TO PCU.
--- NOTE | 2023-02-16 11:13 | NUR ---
CALLED DR BROWN- STILL NO BED AVAILABLE IN PCU. PT HR DID DROP TO 110'S FOR A LITTLE WHILE, THEN THE LASIX STARTED TO WORK AND SHGE WAS URINATING FREQUENTLY. LEASING PROFESSIONAL IS ASSISTING THE PT BACK TO BED TO SET UP PUREWICK FOR THE PT. PT HR NOW 120'S TO 140'S. RESP RATE STILL ELEVATED AAND SHALLOW ON THE AIRVO. RT AWARE. SATS 95% CURRENTLY, ON CONT BIOX. ORDER RECIEVED TO GIVE IV CARDIZIEM AND OK TO GIVE THE 60MG IV SOLUMEDROL NOW AWARE THE PT HAD A DOSE AROUND 0130.
--- NOTE | 2023-02-16 11:50 | NUR ---
CALLED DR BROWN- PT NOW IN BED WITH PUREWICK IN PLACE, ON AIRVO, RESP RATE REDUCED FROM THE PREVIOUS RATE OF 40 BREATHS PER MIN. THE PT HR IS NOW REDUCED TO 90'S-100'S, IV CARDIZIEM WAS NOT GIVEN. SPOKE TO DR KEVIN RUBY TO HOLD CARDIZIEM AND CANCEL IN HOUSE TRANSFER TO PCU, DENTISTRY TEACHER AND NURSING PROGRAM DIRECTOR GROUP WORK NOTIFIED. ORDER DC'D.
--- NOTE | 2023-02-16 17:15 | NUR ---
SHIFT SUMMARY- PT VITALS HAVE STABILIZED. BP IS WNL PULSE AFIB IN THE 90'S. RESP RATE 20-24. O2 SATS DROP AND THE BIOX ALARMS IF THE PT IS ON ROOM AIR, BUT SHE SEEMS TO BE IN NO DISTRESS AT THIS TIME. PT IS IN BED ON AIRVO, PUREWICK IN PLACE PATENT AND DRAINING TO SUCTION. PT APPEARS TO BE FEELING A LOT BETTER THIS EVENING. AUDIBLE WHEEZES ARE REDUCED WELL.
[2023-02-17 03:22] VITALS: BP 174/95
[2023-02-17 03:25] VITALS: BP 130/96
--- NOTE | 2023-02-17 05:12 | NUR ---
SHIFT SUMMARY PT WITH COVID AND IN ISOLATION, CALL LIGHT WITHIN REACH AND HAS BEEN CALLING APPROPRIATLY. VSS AND O2 WNL, ON 2L NC AND TOLORATING WELL, NO C/O PAIN NO DISTRESS PT BECOMING LITTLE CONFUSED ABOUT WHERE SHE IS AT, PT SAYS SHE DOES THAT SOMETIMES. I REORIENTED PT EASILY AND BROUGHT IN A RECLYINING CHAIR TO TRY TO SLEEP IN. PT UP IN CHAIR LAYING COMFORTABLY. AFTER SOMETIME PT BACK IN BED, NO DISTRESS AND LOOKING FORWARD TO GOING HOME.
[2023-02-17 06:01] LABS: BASOPHILS ABSOLUTE AUTO 0.01 K/mm3 (0.00-0.23); BASOPHILS PERCENT AUTO 0 % (0-2); EOSINOPHILS PERCENT AUTO 0 % (0-6); IMMATURE GRAN ABSOLUTE AUTO 0.04 K/mm3 (0.00-0.10); IMMATURE GRAN PERCENT AUTO 0 % (0-1); LYMPHOCYTES ABSOLUTE AUTO 0.76 K/mm3 (0.84-5.20); LYMPHOCYTES PERCENT AUTO 7 % (21-46); MONOCYTES ABSOLUTE AUTO 0.48 K/mm3 (0.16-1.47); MONOCYTES PERCENT AUTO 4 % (4-13); Mean Corpuscular HGB 31.9 pg (26.0-34.0); Mean Corpuscular HGB Conc 33.3 g/dL (31.5-36.5); Mean Corpuscular Volume 96 fL (80-100); Mean Platelet Volume 10.5 fL (9.1-12.4); NEUTROPHILS ABSOLUTE AUTO 9.64 K/mm3 (1.96-9.15); NEUTROPHILS PERCENT AUTO 88 % (41-73); Platelet Count 185 K/mm3 (150-400); RDW Standard Deviation 52.1 fL (35.1-46.3); Red Blood Cell Count 3.76 M/mm3 (3.80-5.20); White Blood Cell Count 10.93 K/mm3 (4.00-11.30)
[2023-02-17 06:39] LABS: Albumin, Blood 3.7 g/dL (3.4-5.0); Anion Gap 6 mmol/L (6-16); Blood Urea Nitrogen 19 mg/dL (8-24); Bun/Creatinine Ratio 20.7 (12.0-20.0); CO2, Blood 30 mmol/L (21-32); Calcium, Blood 8.8 mg/dL (8.5-10.1); Chloride, Blood 100 mmol/L (98-108); Creatinine, Blood 0.92 mg/dL (0.40-1.00); Glomerular Filtration Rate 61 (60-); Glucose, Blood 167 mg/dL (70-99); Phosphorus, Blood 3.4 mg/dL (2.5-4.9); Potassium, Blood 4.1 mmol/L (3.5-5.5); Sodium, Blood 136 mmol/L (136-145)
[2023-02-17 07:22] VITALS: BP 146/84
--- NOTE | 2023-02-17 09:00 | NUR ---
CALLED DR WARNER- PT GOT OOB AND WAS ATTEMPTING TO GO TO THE BATHROOM. HER HR WAS 170'S AFIB RVR. CALLED DR WARNER TO UPDATE. ASSISTED PT TO LAY IN BED, SATS WERE LOW REPLACED O2. PLACED A PUREWICK. ONCE AT REST PT HR REDUCED TO 110'S- 120'S DR WARNER GAVE PARAMETERS TO GIVE IV METORPOLOL IF HR IS GREATER THAN 120 SUSTAINED. HR NO LONGER SUSTAINING ABOVE 120. MEDICATED WITH POO MORNING MEDS.
[2023-02-17 09:35] VITALS: BP 142/105
[2023-02-17 16:25] VITALS: BP 134/83
--- NOTE | 2023-02-17 17:03 | NUR ---
SHIFT SUMMARY- SINCE THIS MORNING THE PT HR HAS BEEN MORE STABLE, HOWEVER THE PT HAS BEEN IN BED WITH THE PUREWICK IN PLACE, ONLY GETTING UP THIS EVENING TO THE CHAIR. PUREWICK STILL IN PLAE AND CONNECTED TO SUCTION. PT WAS CONFUSED THROUGHOUT THE MORNING THINKING THAT SSHE WAS AT HOME NOT IN THE HOSPITAL, FREQUENT REORIENTATION SEEMED TO WORK. PPT CURRENTLY IN THE RECLINER, CALL LIGHT IN REACH NO S&S OF DISTRESS NOTED WILL PASS ON IN REPORT TO NIGHT RN.
[2023-02-17 19:27] VITALS: BP 140/102
[2023-02-18 03:56] VITALS: BP 146/96
[2023-02-18 05:14] VITALS: BP 133/98
--- NOTE | 2023-02-18 05:29 | NUR ---
SHIFT SUMMARY PT FREQUENTLY PULLING OFF O2 AND GETTING OUT OF CHAIR AT BEGINNING OF SHIFT. PER PT SHE USUALLY SLEEPS IN HER RECLINER. PT REQUESTED MELATONIN AND TYLENOL FOR GENERALIZED DISCOMFORT. PRN MELATONIN AND TYLENOL GIVEN WITH NIGHTTIME MEDICATIONS. AROUND 2200 TELE CALLED TO NOTIFY OF HR SUSTAINING ABOVE 130. PRN METOPROLOL GIVEN, HR VISUALIZED ON PTS TELE MONITOR AND IMPROVED TO 110-117. TELE HAD CALLED ADDITIONAL TIMES FOLLOWING THAT AND AT THE TIME PT WAS ATTEMPTING TO GET OOB AND PULLING O2 AND SPO2 MONITOR OFF. PT NOT WILLING TO LISTEN TO INSTRUCTIONS OF KEEPING SPO2, O2, AND TELE ON. AND KEPT ATTEMPTING TO GET OOB FREQUENTLY. HAVING AUDITORY AND VISUAL HALLUCINATIONS OF FAMILY MEMBERS IN THE ROOM AND OUTSIDE OF THE ROOM, HOWEVER WHEN ASKED ORIENTATION QUESTIONS, PT COMPLETELY ORIENTATED, JUST VERY AGITATED. NOTIFIED DR. FRANCISCO WHO PROVIDED A TELEPHONE ORDER TO GIVE 5MG IM ZYPREXA NOW AND REPEAT DOSE IF INEFFECTIVE. ONE TIME ZYPREXA GIVEN AT 0200, ALLOWED 1 HR FOR MEDICATION TO WORK, HOWEVER IT WAS INEFFECTIVE. PT TRANSFERED TO BED PER REQUEST, ONCE IN BED PT WOULD CONSTANTLY KICK LEGS AROUND AND ATTEMPT TO GET OOB DESPITE HER BEING VISIBLY TIRED AND HAVING EYES CLOSED AND YELLING THINGS THAT DID NOT MAKE SENSE, BUT WOULD APPROPRIATELY ANSWER ORIENTATION QUESTIONS. TELE CALLED AGAIN THAT HEART RATE CONSISTENTLY IN 160S, PRN METOPROLOL GIVEN AGAIN SLIGHTLY EARLY AND 2ND DOSE OF ZYPREXA GIVEN. UNABLE TO LEAVE PTS BEDSIDE AT THIS TIME AGITATION WAS VERY HIGH AND PT SCREAMING WE ARE LIARS AND HER SISTER HAS BEEN HERE ALL NIGHT AND SHES NOT STAYING IN BED. FREQUENTLY THROWING LEGS OFF BED AND PULLING ON RAILS. NOTIFIED CEASAR SUAREZ TO CALL DR. LARSON TO REQUEST ADDITIONAL MEDICATIONS FOR HER HR THAT DID NOT IMPROVE FROM METOPROLOL, AND TO SEE IF HE WANTED RESTRAINTS OR ADDITIONAL MEDIATION FOR AGITATION. ADDITIONAL METOPROLOL GIVEN AT 0358, AND PT PLACED IN PARESH VEST AFTER ADMINISTRATION WHICH WAS AT 0405. NOTIFIED AGAIN OF HR SUSTAINING IN 160S-170S. AT THIS TIME ORDERS GIVEN TO TRANSFER PT TO PCU AND A ONE TIME ORDER OF DILTIAZEM ORDERED. PT PARESH VEST UNTIED AT 0440, PER CEASAR SUAREZ, SHE RECEIVED THE TELEPHONE ORDER BUT HAD NOT BEEN ABLE TO PUT IT IN THE SYSTEM YET, BUT SINCE THE PATIENT HAS NOT BEEN IN RESTRAINTS ONE FULL HOUR, THE ORDER IS NOT NECESSARY TO PUT IN AT THIS TIME. REPORT CALLED TO PCU, IV CARDIZEM GIVEN AND PT TRANSFERED TO PCU.
--- NOTE | 2023-02-18 05:34 | NUR ---
TRANSFER NOTE THIS RN RECEIVED REPORT FROM ARMANI BURKETT ON MEDICAL FLOOR. PT TRANSFERRED TO PCU AT 0505. PT GIVEN CARDIZEM IV PUSH PRIOR TO ARRIVAL. AFIB ON MONITOR WITH HR 100'S. PT DENIES CHEST PAIN/PRESSURE AND SOB. BP STABLE WITH SBP 130'S. PT A&O X4. ABLE TO MAKE NEEDS KNOWN. VERBALIZED UNDERSTANDING ABOUT NOT GETTING OUT OF BED WITHOUT ASSISTANCE. BED ALARM ON FOR SAFETY. CAMERA ON IN ROOM. AFEBRILE. HEATING PADS GIVEN FOR BACK AND LEGS. PT APPEARS RESTLESS AND IS KICKING LEGS FREQUENTLY. PT DENIES PAIN. BED IN LOWEST POSITION AND CALL LIGHT WITHIN REACH. THIS RN WILL REPORT TO ONCMARK RN.
--- NOTE | 2023-02-18 06:03 | NUR ---
FAMILY CONTACT CALLED PT'S SON (JOSE) AND UPDATED WITH CURRENT STATUS AND TRANSFER TO PCU. ANSWERED ALL QUESTIONS AND REASSSURED THAT ANY ADDITIONAL CHANGES WOULD BE COMMUNICATED TO HIM. HE STATED THAT HE HAS COPD AND IS UNABLE TO COME IN TO BE AT THE BEDSIDE DUE TO PT'S CURRENT ILLNESS. NOTIFIED PRIMARY RN MALLORIE.
[2023-02-18 07:39] VITALS: BP 153/112
[2023-02-18 11:39] VITALS: BP 144/89
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
[2023-02-18 15:52] VITALS: BP 146/99
--- NOTE | 2023-02-18 17:05 | NUR ---
shift summary patient neuro has remained the same. patient is alert and oriented x3. patient is confused at times, but is able to make needs known. patient tele afib 80s, heart rate will increase with exertion into the 130s. see shift assessment for further detials. plan of care is up to date
[2023-02-18 21:13] VITALS: BP 155/101
[2023-02-19 00:09] VITALS: BP 127/93
[2023-02-19 03:44] VITALS: BP 161/88
[2023-02-19 03:53] LABS: BASOPHILS ABSOLUTE AUTO 0.01 K/mm3 (0.00-0.23); BASOPHILS PERCENT AUTO 0 % (0-2); EOSINOPHILS PERCENT AUTO 0 % (0-6); Hematocrit 40.2 % (33.0-51.0); Hemoglobin 13.4 g/dL (11.5-16.0); IMMATURE GRAN ABSOLUTE AUTO 0.07 K/mm3 (0.00-0.10); IMMATURE GRAN PERCENT AUTO 1 % (0-1); LYMPHOCYTES PERCENT AUTO 8 % (21-46); MONOCYTES ABSOLUTE AUTO 1.17 K/mm3 (0.16-1.47); MONOCYTES PERCENT AUTO 8 % (4-13); Mean Corpuscular HGB 31.9 pg (26.0-34.0); Mean Corpuscular HGB Conc 33.3 g/dL (31.5-36.5); Mean Corpuscular Volume 96 fL (80-100); Mean Platelet Volume 10.5 fL (9.1-12.4); NEUTROPHILS PERCENT AUTO 84 % (41-73); Platelet Count 217 K/mm3 (150-400); RDW Coefficient Variation 14.8 % (11.7-14.2); White Blood Cell Count 14.25 K/mm3 (4.00-11.30)
[2023-02-19 04:33] LABS: Albumin, Blood 3.3 g/dL (3.4-5.0); Bilirubin, Total 0.8 mg/dL (0.1-1.0); Bun/Creatinine Ratio 29.1 (12.0-20.0); Calcium, Blood 8.5 mg/dL (8.5-10.1); Creatinine, Blood 1.17 mg/dL (0.40-1.00); Globulin, Blood 3.4 g/dL (2.2-4.0); Magnesium, Blood 1.9 mg/dL (1.6-2.4); Potassium, Blood 3.6 mmol/L (3.5-5.5); Total Protein, Blood 6.7 g/dL (6.4-8.2)
--- NOTE | 2023-02-19 04:57 | NUR ---
SHIFT SUMMARY NO ACUTE CHANGES OVERNIGHT. A&O X4. FORGETFUL AT TIMES. NO EPISODES OF CONFUSION NOTED. PT HAS BEEN CALLING APPROPRIATELY. BP STABLE. AFIB WITH HR 80-90'S. ON 1-2L VIA NC WITH SPO2 >90%; TITRATING NEEDED. PT IS ABLE TO REPOSITION SELF IN BED BUT NEEDS ASSISTANCE WITH PILLOWS AND BEING BOOSTED IN BED. PUREWICK IN PLACE. ATTENDS DRY. BED IN LOWEST POSITION, BED ALARM ON, AND CALL LIGHT WITHIN REACH. THIS RN WILL REPORT TO ONCOMING DAYSHIFT RN.
[2023-02-19 07:45] VITALS: BP 155/94
[2023-02-19 11:45] VITALS: BP 143/87
--- NOTE | 2023-02-19 13:32 | NUR ---
TRANSFER: REPORT GIVEN TO STELLA Kurtz RN. PT TRANSFERRED TO [place] [id number]. ALL BELONGINGS WITH PT.
[2023-02-19 14:57] VITALS: BP 151/98
[2023-02-19 16:42] LABS: Base Excess Venous 12.6 mmol/L; Bicarbonate Venous 34.4 mmol/L (24.0-30.0); PCO2 Venous 51.3 mmHg (38-42); pH Blood Venous 7.46 (7.34-7.37)
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
[2023-02-19 20:13] VITALS: BP 160/104
[2023-02-20 02:07] VITALS: BP 150/102
--- NOTE | 2023-02-20 04:25 | NUR ---
SHIFT SUMMARY RENÉ IS ALERT AND FULLY ORIENTED AT START OF SHIFT. SHE IS PLEASANT, COOPERATIVE AND CALLS APPROPRIATELY. C/O OF NOT BEING ABLE TO EXPEL LUNG SECRETIONS WELL AND STILL HAS A LINGERING INTERMITTENT COUGH. SHE MAINTAINED O2 SATS ABOVE 90 % ON 1L O2 NC. NO OUTSTANDING COMPLAINTS, NO ACUTE EVENTS. PT IS CURRENTLY RESTING IN BED AT A LOWERED POSITION WITH THE CALL LIGHT IN REACH.
[2023-02-20 05:31] LABS: BASOPHILS ABSOLUTE AUTO 0.01 K/mm3 (0.00-0.23); BASOPHILS PERCENT AUTO 0 % (0-2); EOSINOPHILS ABSOLUTE AUTO 0.04 K/mm3 (0.00-0.68); EOSINOPHILS PERCENT AUTO 0 % (0-6); Hematocrit 39.5 % (33.0-51.0); Hemoglobin 12.8 g/dL (11.5-16.0); IMMATURE GRAN ABSOLUTE AUTO 0.08 K/mm3 (0.00-0.10); IMMATURE GRAN PERCENT AUTO 1 % (0-1); LYMPHOCYTES ABSOLUTE AUTO 1.91 K/mm3 (0.84-5.20); LYMPHOCYTES PERCENT AUTO 17 % (21-46); MONOCYTES PERCENT AUTO 10 % (4-13); Mean Corpuscular HGB 31.4 pg (26.0-34.0); Mean Corpuscular HGB Conc 32.4 g/dL (31.5-36.5); Mean Corpuscular Volume 97 fL (80-100); Mean Platelet Volume 10.8 fL (9.1-12.4); NEUTROPHILS ABSOLUTE AUTO 8.39 K/mm3 (1.96-9.15); NEUTROPHILS PERCENT AUTO 73 % (41-73); Platelet Count 202 K/mm3 (150-400); RDW Coefficient Variation 14.6 % (11.7-14.2); RDW Standard Deviation 51.6 fL (35.1-46.3); Red Blood Cell Count 4.08 M/mm3 (3.80-5.20); White Blood Cell Count 11.53 K/mm3 (4.00-11.30)
[2023-02-20 06:08] LABS: Anion Gap 4 mmol/L (6-16); Blood Urea Nitrogen 28 mg/dL (8-24); Bun/Creatinine Ratio 29.6 (12.0-20.0); CO2, Blood 33 mmol/L (21-32); Calcium, Blood 8.2 mg/dL (8.5-10.1); Chloride, Blood 100 mmol/L (98-108); Creatinine, Blood 0.95 mg/dL (0.40-1.00); Glomerular Filtration Rate 59 (60-); Glucose, Blood 104 mg/dL (70-99); Phosphorus, Blood 2.9 mg/dL (2.5-4.9); Potassium, Blood 4.6 mmol/L (3.5-5.5); Sodium, Blood 137 mmol/L (136-145)
[2023-02-20 07:44] VITALS: BP 167/100
[2023-02-20 07:46] VITALS: BP 152/95
[2023-02-20] MEDS ORDERED: PRED20 PO (13:29)
--- NOTE | 2023-02-20 15:04 | NUR ---
SHIFT/DISCHARGE SUMMARY: PATIENT IS A/OX4. CALM, PLEASANT AND COOPERATIVE c CARE. USES CALL LIGHT APPROPRIATELY AND ABLE TO MAKE NEEDS KNOWN. PATIENT DENIES CP/PRESSURE, SOB, N/V AND DIZZINESS. PATIENT STILL ON TELE, AFIB HR IN THE LOW 100'S BPM. RA, c SPO2 ABOVE 92%. PATIENT RECEIVED SCHEDULED MED PER EMAR. PATIENT IS CONTINENCE OF BOWELS AND BLADDER, AMBULATES TO BATHROOM/BSC c SBA. SHOWERED, EATING AND DRINKING WELL. PT WORK c PATIENT TODAY, RECOMMENDED HH SERVICES. VITAL SIGNS REVIEWED. PIV TO L HAND DC'D. PATIENT DISCHARGE HOME. DISCHARGE INSTRUCTION PACKET GIVEN TO PATIENT. EDUCATE PATIENT REGARDING ADMITTING DX'S OF ACUTE HYPOXIC RESP FAILURE D/T COVID POSITIVE, S/S, TX, NEW PRESCRIBED MEDS, SELF CARE AT HOME AND TO FOLLOW UP c HER PCP. PATIENT VERBALIZED UNDERSTANDING AND NO FURTHER QUESTIONS. RX WAS FAXED TO PATIENT PREFERRED PHARMACY ([facility]). ALL PATIENT PERSONAL BELONGINGS WERE SENT HOME c THE PATIENT. PATIENT LEFT THE ROOM AT AROUND 1455 AND WAS TRANSPORTED VIA WHEELCHAIR BY THIS RN TO PATIENT ENTRANCE.
== END 2023-02-20 15:00 | disposition home health service (06) | DRG 177 ==
LOC: ER 14:12 → MEDS 23:11 → PCU 02-18 05:03 → MEDS 02-19 13:50 → ENPENDDIS 02-20 14:50 → MEDS 02-20 15:00
PROVIDERS: Emergency Medicine; Family Medicine; Student in an Organized Health Care Education/Training Program; ADMIT Internal Medicine
PROC: XW033E5 Introduction of Remdesivir Anti-infective into Peripheral Vein, Percutaneous Approach, New Technology Group 5 (ICD-10-PCS; principal; 2023-02-15)
PROC: 3E0333Z Introduction of Anti-inflammatory into Peripheral Vein, Percutaneous Approach (ICD-10-PCS; 2023-02-15)
PROC: 8E0ZXY6 Isolation (ICD-10-PCS; 2023-02-15)
PROC: 5A0935A Assistance with Respiratory Ventilation, Less than 24 Consecutive Hours, High Flow/Velocity Cannula (ICD-10-PCS; 2023-02-16)
DX: U07.1 COVID-19 (principal); I50.33 Acute on chronic diastolic (congestive) heart failure; J96.01 Acute respiratory failure with hypoxia; J44.1 Chronic obstructive pulmonary disease with (acute) exacerbation; F05 Delirium due to known physiological condition; J44.0 Chronic obstructive pulmonary disease with (acute) lower respiratory infection; I48.91 Unspecified atrial fibrillation; I11.0 Hypertensive heart disease with heart failure; E66.9 Obesity, unspecified; I50.813 Acute on chronic right heart failure; I35.0 Nonrheumatic aortic (valve) stenosis; E78.5 Hyperlipidemia, unspecified; J20.9 Acute bronchitis, unspecified; I07.1 Rheumatic tricuspid insufficiency; N28.9 Disorder of kidney and ureter, unspecified; Z88.2 Allergy status to sulfonamides; Z79.899 Other long term (current) drug therapy; Z79.01 Long term (current) use of anticoagulants; Z79.2 Long term (current) use of antibiotics; Z98.890 Other specified postprocedural states; Z96.653 Presence of artificial knee joint, bilateral; Z60.2 Problems related to living alone; Z98.49 Cataract extraction status, unspecified eye; Z68.38 Body mass index [BMI] 38.0-38.9, adult
CPT/HCPCS: 0241U; 36415; 71045; 80048; 80053; 80069; 82803; 82947; 83735; 83880; 85025; 94640; 94664; 94760; 94762; 96372-59; 96374; 96375; 97110; 97161; 99285-25; A9270; J0248; J1100; J1200; J1650; J1940; J2765; J2930; J7030; J7050; J7512

== ENCOUNTER 2023-04-11 18:32 | Inpatient (IN) | payer OTHER ==
[~2023-04-11] VITALS: Ht 152.4 cm; Wt 85.0 kg
[~2023-04-11 18:32] MED LIST changes: +BENZ100A PO; +ONDA4ODT MM; +PAXLOVID 150-11 EACH PO; +PRED20 PO
[2023-04-11] MEDS ORDERED: BUME2 PO (19:43)
[2023-04-11 20:01] LABS: BASOPHILS PERCENT AUTO 1 % (0-2); EOSINOPHILS ABSOLUTE AUTO 0.32 K/mm3 (0.00-0.68); EOSINOPHILS PERCENT AUTO 3 % (0-6); Hematocrit 36.4 % (33.0-51.0); Hemoglobin 11.9 g/dL (11.5-16.0); IMMATURE GRAN ABSOLUTE AUTO 0.06 K/mm3 (0.00-0.10); IMMATURE GRAN PERCENT AUTO 1 % (0-1); LYMPHOCYTES PERCENT AUTO 22 % (21-46); MONOCYTES ABSOLUTE AUTO 0.78 K/mm3 (0.16-1.47); MONOCYTES PERCENT AUTO 8 % (4-13); Mean Corpuscular HGB 32.5 pg (26.0-34.0); Mean Corpuscular HGB Conc 32.7 g/dL (31.5-36.5); Mean Corpuscular Volume 100 fL (80-100); NEUTROPHILS ABSOLUTE AUTO 6.48 K/mm3 (1.96-9.15); NEUTROPHILS PERCENT AUTO 65 % (41-73); Platelet Count 243 K/mm3 (150-400); RDW Coefficient Variation 14.6 % (11.7-14.2); RDW Standard Deviation 52.3 fL (35.1-46.3); Red Blood Cell Count 3.66 M/mm3 (3.80-5.20); White Blood Cell Count 9.94 K/mm3 (4.00-11.30)
[2023-04-11 20:31] LABS: Albumin, Blood 3.9 g/dL (3.4-5.0); Bilirubin, Total 0.7 mg/dL (0.1-1.0); Bun/Creatinine Ratio 13.9 (12.0-20.0); Calcium, Blood 9.4 mg/dL (8.5-10.1); Creatinine, Blood 1.01 mg/dL (0.40-1.00); Globulin, Blood 3.9 g/dL (2.2-4.0); Potassium, Blood 3.6 mmol/L (3.5-5.5); Total Protein, Blood 7.8 g/dL (6.4-8.2)
[2023-04-11 21:18] LABS: Magnesium, Blood 1.6 mg/dL (1.6-2.4)
[2023-04-12 02:56] LABS: Thyroid Stimulating Hormone 4.43 uIU/mL (0.360-4.800)
[2023-04-12 07:30] LABS: BASOPHILS ABSOLUTE AUTO 0.09 K/mm3 (0.00-0.23); BASOPHILS PERCENT AUTO 1 % (0-2); EOSINOPHILS ABSOLUTE AUTO 0.38 K/mm3 (0.00-0.68); EOSINOPHILS PERCENT AUTO 4 % (0-6); Hematocrit 33.7 % (33.0-51.0); IMMATURE GRAN ABSOLUTE AUTO 0.04 K/mm3 (0.00-0.10); IMMATURE GRAN PERCENT AUTO 0 % (0-1); LYMPHOCYTES ABSOLUTE AUTO 2.02 K/mm3 (0.84-5.20); LYMPHOCYTES PERCENT AUTO 19 % (21-46); MONOCYTES ABSOLUTE AUTO 1.03 K/mm3 (0.16-1.47); MONOCYTES PERCENT AUTO 10 % (4-13); Mean Corpuscular HGB Conc 32.6 g/dL (31.5-36.5); Mean Corpuscular Volume 98 fL (80-100); Mean Platelet Volume 9.8 fL (9.1-12.4); NEUTROPHILS PERCENT AUTO 66 % (41-73); Platelet Count 223 K/mm3 (150-400); RDW Coefficient Variation 14.5 % (11.7-14.2); Red Blood Cell Count 3.44 M/mm3 (3.80-5.20); White Blood Cell Count 10.56 K/mm3 (4.00-11.30)
[2023-04-12 07:51] LABS: Albumin, Blood 3.5 g/dL (3.4-5.0); Albumin/Globulin Ratio 1.1 (0.8-1.8); Bilirubin, Total 0.9 mg/dL (0.1-1.0); Bun/Creatinine Ratio 12.2 (12.0-20.0); Calcium, Blood 8.9 mg/dL (8.5-10.1); Creatinine, Blood 0.99 mg/dL (0.40-1.00); Globulin, Blood 3.3 g/dL (2.2-4.0); Magnesium, Blood 1.7 mg/dL (1.6-2.4); Potassium, Blood 3.4 mmol/L (3.5-5.5); Total Protein, Blood 6.8 g/dL (6.4-8.2)
[2023-04-12 07:56] VITALS: BP 152/94
[2023-04-12 12:43] VITALS: BP 130/100
[2023-04-12 15:05] VITALS: BP 131/81
--- NOTE | 2023-04-12 15:05 | NUR ---
Advanced Care Planning Warmly greeted by Vanesa, whom is sitting up in a chair. Her niece, Gabi is also in the room visiting. Primary RN placed a consult to offer and educate pt on POLST and advanced directives. Vanesa does not currently have either one of the directives on file. Provided a brief overview of both types of directives. Vanesa was having a difficult time focusing d/t frequent urinary voids. This RN assisted pt with BSC x2. She became dyspnic and tachycardic with any activity. She denied the need for oxygen therapy. Denied CP. Respirations returned to baseline within 2 minutes post ambulation. Pt's niece, Gabi has a medical background and is familar with both POLST and Advanced Directive. Gabi will assist pt with filling out the advanced directive. Pt or niece will request PC RN if any questions. Will remain available for support.
--- NOTE | 2023-04-12 16:59 | NUR ---
ADMISSION AND SHIFT SUMMARY: PT ADMITTED THIS AM, ARRIVES TO UNIT APPROX 0745. PT IS A&Ox4, ANSWERS QUESTIONS APPROPRIATELY, ABLE TO MAKE NEEDS KNOWN. PT REPORTS IMPROVEMENT TO SOB, O2 SATS >90% ON RA. PT DENIES CHEST PAIN, AFIB ON MONITOR W/RATE 90s-110 AT REST AND INCREASING TO 130-150 W/ACTIVITY. VS STABLE. PT TOLERATING DIURESIS WELL, HAS BEEN SBA TO BSC. AT THIS TIME, PT IS RESTING IN BEDSIDE RECLINER W/CALL LIGHT IN REACH. WILL CONTINUE TO MONITOR AND TREAT ACCORDINGLY UNTIL CHANGE OF SHIFT.
[2023-04-12 20:48] VITALS: BP 122/85
--- NOTE | 2023-04-12 22:49 | NUR ---
ASSUMPTION OF CARE FOLLOWING REPORT FROM BHAVNA RN, THIS RN ASSUMED CARE AT APPROX 1915. PATIENT ALERT AND ORIENTED X4, SITTING IN CHAIR. PLEASANT, COOPERATIVE WITH CARE. ABLE TO COMMUNICATE NEEDS EFFECTIVELY. TELEMETRY SHOWING AFIB 90's-110's WHILE AT REST. RATE INCREASE TO 130's-140's WITH ACTIVITY. PATIENT IS ASYMPTOMATIC OF RATE INCREASE. REPORTS NO CHEST PAIN/PRESSURE, PALPITATIONS, OR DIZZINESS WITH STANDING. BP STABLE. ON ROOM AIR, SATS >92%. DENIES SHORTNESS OF BREATH AT REST. EXPERIENCES URINARY URGENCY DUE TO DIURESIS WITH BUMEX. ATTENDS IN PLACE, CHANGING NEEDED TO KEEP C/D/I. UP TO BEDSIDE COMMODE WITH STAND BY ASSIST AND FWW TO VOID MULTIPLE TIMES SINCE ASSUMPTION OF CARE. PATIENT CHOOSING TO SLEEP IN RECLINER CHAIR DOES SO AT HOME. CALL LIGHT IN REACH.
[2023-04-12 23:30] VITALS: BP 128/82
--- NOTE | 2023-04-12 23:44 | NUR ---
PATIENT REPORTING DIFFICULTY SLEEPING, REQUESTING ADDITIONAL DOSE OF MELATONIN NORMALLY TAKES 40MG AT HOME. HOME DOSE OF TRAZADONE AND 10MG OF MELATONIN ADMINISTERED PER EMAR EARLIER. THIS RN CONTACTED MD. RECEIVED ORDER FOR AN ADDITIONAL ONE TIME DOSE OF 10MG MELATONIN.
[2023-04-13 03:41] VITALS: BP 120/73
[2023-04-13 04:37] LABS: Bun/Creatinine Ratio 14.9 (12.0-20.0); Calcium, Blood 9.1 mg/dL (8.5-10.1); Creatinine, Blood 1.14 mg/dL (0.40-1.00); Potassium, Blood 3.3 mmol/L (3.5-5.5)
--- NOTE | 2023-04-13 05:04 | NUR ---
SHIFT SUMMARY NO ACUTE CHANGES SINCE PREVIOUS NOTES. PATIENT ABLE TO SLEEP WITH ADDITIONAL DOSE OF MELATONIN. TELEMETRY CONTINUING TO SHOW AFIB 90's-110's AT REST. WHILE AMBULATING IN HALLWAY WITH CJ RN, RATE INCREASE TO 130's-150's. PATIENT REMAINS ASYMPTOMATIC OF RATE CHANGE. BP STABLE. REMAINS ON ROOM AIR, SATS >90%. UP TO BEDSIDE COMMODE MULTIPLE TIMES THROUGHOUT SHIFT. VOIDING. CALL LIGHT IN REACH. WILL REPORT TO ONCOMING RN.
[2023-04-13 07:48] VITALS: BP 120/79
--- NOTE | 2023-04-13 09:34 | NUR ---
AM NOTE: PATIENT ALERT AND ORIENTED. VERY PLEASENT AND COOPERATIVE WITH CARES. DENIES NUMBNESSS/TINGLING. OVERALL STATES SHE FEELS WEAK, BUT BACK TO HER BASELINE. PERRLA, GLASSES ON BEDSIDE TABLE. ON ROOM AIR SATING ABOVE 95%. DENIES SOB/COUGH. EVEN AND UNLABORED RESPIRATIONS. CLEAR IN UPPER LOBES AND FINE CRACKLES HEARD IN BASES. TELE SHOWING AFIB WITH HR 90-110'S AT REST AND UP TO 130'S WITH ACTIVITY. PATIENT DENIES CHEST PAIN/PRESSURE/PALPITATIONS. BP STABLE. TRACE EDEMA NOTED IN BLE. BOWEL TONES PRESENT. PATIENT EATING AND VOIDING WNL. BOWEL MOVEMENT X1 THIS AM. SKIN OVERALL FRAGILE AND SCATTERED BRUISING. PATIENT TALKING TO FAMILY ON PHONE THIS AM. DR. BROWN BY FOR PROVIDER ROUNDING, NO NEW ORDERS FOR THIS RN TO PLACE. CALL LIGHT IN REACH. PATIENT DENIES NEEDS AT THIS TIME, RESTING IN BED.
[2023-04-13 11:10] VITALS: BP 99/72
[2023-04-13 12:40] VITALS: BP 123/88
--- NOTE | 2023-04-13 13:02 | NUR ---
PATIENT WENT FOR WALK AROUND UNIT, TOLERATED WELL, HR UP TO 110-120'S. POST WALK PHYSICAL THREAPY IN ROOM AND HAD PATIENT PRACTICE STEPS. HR UP TO 140'S WITH STEPS, DID NOT SUSTAIN. PATIENT SITTING IN RECLINER AT THIS TIME EATING LUNCH HR 90-110'S. BP 123/88(95).
[2023-04-13] MEDS ORDERED: METO100ER PO (13:48)
--- NOTE | 2023-04-13 14:46 | NUR ---
DISCHARGE: NO ACUTE CHANGES. PATIENT FAMILY IN TO POWERHOUSE ELECTRICIAN APPRENTICE. DISCHARGE REVIEWED WITH PATIENT, MEDS FAXED TO [facility] TO CALL PATIENT TO SET UP CARDIOLOGY APPOINTMENT. PATIENT ABLE TO TEACH BACK NEW MEDICATION DOSEAGE AND TIMES WITH HOLDING PARAMETERS AND FOLLOW UP APPOINTMENT. IV REMOVED WNL. PATIENT LEFT UNIT WITH ALL PERSONAL BELONGINGS VIA WHEELCHAIR.
== END 2023-04-13 14:48 | disposition home health service (06) | DRG 291 ==
LOC: ER 18:32 → ERHOLD 18:33 → PCU 04-12 07:43
PROVIDERS: Emergency Medicine; Family Medicine; ADMIT Student in an Organized Health Care Education/Training Program
DX: I13.0 Hypertensive heart and chronic kidney disease with heart failure and stage 1 through stage 4 chronic kidney disease, or unspecified chronic kidney disease (principal); I50.33 Acute on chronic diastolic (congestive) heart failure; I48.91 Unspecified atrial fibrillation; E78.5 Hyperlipidemia, unspecified; I50.812 Chronic right heart failure; T50.1X6A Underdosing of loop [high-ceiling] diuretics, initial encounter; D63.1 Anemia in chronic kidney disease; E87.6 Hypokalemia; E66.01 Morbid (severe) obesity due to excess calories; Z96.653 Presence of artificial knee joint, bilateral; Z88.2 Allergy status to sulfonamides; Z79.52 Long term (current) use of systemic steroids; Z79.01 Long term (current) use of anticoagulants; Z91.138 Patient's unintentional underdosing of medication regimen for other reason; Z86.16 Personal history of COVID-19; Z68.37 Body mass index [BMI] 37.0-37.9, adult; Z96.612 Presence of left artificial shoulder joint
CPT/HCPCS: 36415; 71046; 80048; 80053; 83735; 83880; 84443; 84484; 85025; 93005; 93010; 96365; 96375; 96376; 97110; 97162; 99285-25; A9270; G0378; J3475

== ENCOUNTER → 2023-05-31 | Outpatient (CLI) | payer OTHER ==
[~2023-05-31] MED LIST changes: +BUME2 PO
[2023-05-31 12:00] LABS: Hemoglobin 10.9 g/dL (11.5-16.0)
[2023-05-31 12:16] LABS: Percent Saturation 14.9 % (15.0-50.0)
[2023-06-01 06:12] LABS: CALCIUM, SERUM 9.3 mg/dL (8.7-10.3); CREATININE, SERUM 1.12 mg/dL (0.57-1.00); PHOSPHORUS, SERUM 4.6 mg/dL (3.0-4.3); POTASSIUM, SERUM 4.7 mmol/L (3.5-5.2)
== END ==
LOC: LAB SHORT 11:09 → LAB 11:09
PROVIDERS: Internal Medicine Nephrology
DX: N18.30 Chronic kidney disease, stage 3 unspecified (principal); D63.1 Anemia in chronic kidney disease; D50.9 Iron deficiency anemia, unspecified
CPT/HCPCS: 80069; 82728; 83540; 83550; 85018

== ENCOUNTER 2023-06-19 14:24 | Inpatient (IN) | payer OTHER ==
[2023-06-19] VITALS (16 sets, daily range): BP systolic 103–140; BP diastolic 56–99
[~2023-06-19] VITALS: Ht 152.4 cm; Wt 87.5 kg
[2023-06-19] MEDS ORDERED: MethylPREDNISolone Sod Succ 125 MG Vial IV ONE (14:40)
[2023-06-19] MEDS ORDERED: Ipratropium/Albuterol SulF 2.5-0.5MG/3 ML Amp INH ONE (14:40)
[2023-06-19] MEDS ORDERED: Bumetanide 0.25 MG/ML 10ML Vial IV ONE (14:40)
[2023-06-19] MEDS ORDERED: LORazepam 2 MG/ML 1ML Injection IV ONE ×2 (14:55→18:43)
[2023-06-19 14:56] LABS: BASOPHILS ABSOLUTE AUTO 0.07 K/mm3 (0.00-0.23); BASOPHILS PERCENT AUTO 1 % (0-2); EOSINOPHILS ABSOLUTE AUTO 0.38 K/mm3 (0.00-0.68); EOSINOPHILS PERCENT AUTO 3 % (0-6); Hematocrit 38.5 % (33.0-51.0); Hemoglobin 12.2 g/dL (11.5-16.0); IMMATURE GRAN ABSOLUTE AUTO 0.05 K/mm3 (0.00-0.10); IMMATURE GRAN PERCENT AUTO 0 % (0-1); LYMPHOCYTES ABSOLUTE AUTO 2.78 K/mm3 (0.84-5.20); LYMPHOCYTES PERCENT AUTO 24 % (21-46); MONOCYTES ABSOLUTE AUTO 0.95 K/mm3 (0.16-1.47); MONOCYTES PERCENT AUTO 8 % (4-13); Mean Corpuscular HGB 31.4 pg (26.0-34.0); Mean Corpuscular HGB Conc 31.7 g/dL (31.5-36.5); Mean Corpuscular Volume 99 fL (80-100); Mean Platelet Volume 9.9 fL (9.1-12.4); NEUTROPHILS ABSOLUTE AUTO 7.38 K/mm3 (1.96-9.15); NEUTROPHILS PERCENT AUTO 64 % (41-73); Platelet Count 229 K/mm3 (150-400); RDW Coefficient Variation 13.6 % (11.7-14.2); RDW Standard Deviation 48.7 fL (35.1-46.3); Red Blood Cell Count 3.89 M/mm3 (3.80-5.20); White Blood Cell Count 11.61 K/mm3 (4.00-11.30)
[2023-06-19 15:00] LABS: Base Excess Venous 0.1 mmol/L; Bicarbonate Venous 23.4 mmol/L (24.0-30.0); PCO2 Venous 58.8 mmHg (38-42)
[2023-06-19 15:01] LABS: pH Blood Venous 7.27 (7.34-7.37)
[2023-06-19 15:23] LABS: Albumin, Blood 3.8 g/dL (3.4-5.0); Albumin/Globulin Ratio 1.1 (0.8-1.8); Bilirubin, Total 0.6 mg/dL (0.1-1.0); Bun/Creatinine Ratio 17.1 (12.0-20.0); Calcium, Blood 8.9 mg/dL (8.5-10.1); Creatinine, Blood 1.05 mg/dL (0.40-1.00); Globulin, Blood 3.6 g/dL (2.2-4.0); Total Protein, Blood 7.4 g/dL (6.4-8.2)
[2023-06-19] MEDS ORDERED: dilTIAZem HCL 125 MG in Dextrose 5% 100 ML IV SCH (15:30)
[2023-06-19] MEDS ORDERED: Diltiazem HCl 5 MG / ML 5ML Vial IV ONE (15:30)
[2023-06-19] MEDS ORDERED: MELATONIN5 M1 PO (15:55)
[2023-06-19 15:57] LABS: Influenza A, PCR NEGATIVE (NEGATIVE); Influenza B, PCR NEGATIVE (NEGATIVE); Resp Syncytial Virus, PCR NEGATIVE (NEGATIVE); SARS-Cov-2 (COVID-19) PCR, MMC NEGATIVE (NEGATIVE)
[2023-06-19] MEDS ORDERED: Ondansetron HCl 2 MG / ML 2ML Vial IV PRN (16:15)
[2023-06-19] MEDS ORDERED: FLU VACC QS2023-24(6MOS UP)/PF 60 MCG/0.5 ML SYRINGE IM SCH (16:15)
[2023-06-19] MEDS ORDERED: Ipratropium/Albuterol SulF 2.5-0.5MG/3 ML Amp INH PRN (16:20)
[2023-06-19] MEDS ORDERED: Bumetanide 0.25 MG/ML 4ML ViaL IV SCH (18:00)
[2023-06-19] MEDS ORDERED: Apixaban 5 MG Tab PO SCH (21:00)
[2023-06-19] MEDS ORDERED: MethylPREDNISolone Sod Succ 125 MG Vial IV SCH (21:00)
[2023-06-19] MEDS ORDERED: Metoprolol Succinate 50 MG TABCR PO SCH (21:00)
[2023-06-19] MEDS ORDERED: Melatonin 5 MG Tablet PO SCH (21:55)
[2023-06-19] MEDS ORDERED: TraZODone HCl 100 MG Tab PO SCH (21:55)
--- NOTE | 2023-06-19 22:20 | NUR ---
ARRIVAL TO ICU PT A/O X 4. FOLLOWS COMMANDS AND MOVES ALL EXTREMITIES. LUNGS COARSE/WHEEZY. ON RA WITH SPO2 88-90%. ON 2L WITH SPO2 GREATER THAN 92%. PT WORE BIPAP APPROX 30 MINS BEFORE REQUESTING IT TO BE REMOVED. PT EDUCATED ON NEED TO WEAR BIPAP, PT STATES "JUST GIVE ME THE WATER PILL AND I WILL BE FINE". PT STATES SHE WON'T BE ABLE TO SLEEP WITH IT ON AND FEELS MUCH BETTER THEN BEFORE. CALLED HOSP TO RESTART HER HOME MELATONIN AND TRAZODONE. REATTEMPTED TO EDUCATE AND TRY BIPAP AFTER GIVING MEDICATIONS. PT ADAMANTLY STATES "NO I'LL JUST SLAP IT OFF MY FACE, NO". PT AGREEABLE TO WEAR NC. VSS. AFIB RATE 100-120'S AT 1900. CARDIZEM GTT INFUSING. CURRENTLY 80-90'S AND CARDIZEM GTT OFF. SEE FLOWSHEET FOR TITRATIONS. PT DENIES CHEST OR ABD PAIN. PUREWICK IN PLACE. CALL LIGHT IN REACH.
[2023-06-20] VITALS (38 sets, daily range): BP systolic 95–146; BP diastolic 55–111
[2023-06-20 03:39] LABS: Base Excess Venous 3.5 mmol/L; Bicarbonate Venous 27.2 mmol/L (24.0-30.0); pH Blood Venous 7.43 (7.34-7.37)
[2023-06-20 04:10] LABS: Bun/Creatinine Ratio 16.7 (12.0-20.0); Calcium, Blood 8.8 mg/dL (8.5-10.1); Creatinine, Blood 1.02 mg/dL (0.40-1.00); Magnesium, Blood 1.6 mg/dL (1.6-2.4); Potassium, Blood 4.3 mmol/L (3.5-5.5)
--- NOTE | 2023-06-20 05:30 | NUR ---
SHIFT SUMMARY NO ACUTE EVENTS T/O NIGHT. PT A/O X 4. ABLE TO ASSIST IN TURNING AND REPOSITION SELF IN BED. VSS. CARDIZEM REMAINS OFF SINCE PRIOR NOTE. HR 80-100'S. AFIB. ON 1L VIA NC WITH SPO2 GREATER THEN 92%. DECLINED BIPAP T/O NIGHT. PURE WICK IN PLACE. CALL LIGHT IN REACH. PT REPORTS "I NEED TO GO HOME TODAY BECAUSE I HAVE A DR APPT TOMORROW AND I AM NOT MISSING IT". PT EDUCATED ON PROVIDERS ROUNDING TODAY AND THAT THEY WILL MAKE THAT DECISION. PT STATES "WELL THIS DOCTOR (POINTING TO SELF) SAYS I'M GOING HOME TODAY". WILL REPORT OFF TO ONCOMING RN.
[2023-06-20] MEDS ORDERED: Pantoprazole Sodium 40 MG Injection IV SCH (06:00)
[2023-06-20] MEDS ORDERED: Bumetanide 1 MG Tab PO SCH (09:00)
[2023-06-20] MEDS ORDERED: Multivitamins/Minerals 1 Tab PO SCH (09:00)
[2023-06-20] MEDS ORDERED: Cholecalciferol 1000 Unit Tablet (=25MCG) PO SCH (09:00)
[2023-06-20] MEDS ORDERED: PredniSONE 20 MG Tab PO SCH (09:00)
[2023-06-20] MEDS ORDERED: Metoprolol Tartrate 1 MG/ML 5 ML VIAL IV PRN (10:00)
[2023-06-20] MEDS ORDERED: Metoprolol Tartrate 1 MG/ML 5 ML VIAL IV ONE (10:00)
--- NOTE | 2023-06-20 10:15 | NUR ---
CARE OF PT ASSUMED AT 0700. PT AWAKE AND ALERT, OX3. PT DENIES C/O PAIN AND STATES SHE SLEPT WELL LAST NIGHT, PT STATES SHE DID NOT WEAR THE BIPAP AND WOULD NOT BECAUSE, "I JUST CANT DO IT, I CANT SLEEP WITH IT AND I NEED TO SLEEP". PT'S SATS >95% ON 1L N/C. LUNGS TIGHT WITH EXP WHEEZES TO BASES, RLL MORE DIMINISHED THAN LEFT. PT HAS SOME DYSPNEA AND TACHYPNEA WITH EXERTION;EATING. PT IN AFIB 100-130, MORE ELEVATED WITH EXERTION;EATING. DR KENYON IN TO SEE PT THIS AM. PT ANXIOUS TO GO HOME BUT HAS AGREED TO STAY. DR KENYON CALLED TO GIVE UPDATE PT'S HEART RATE ELEVATED HIGH 160 WHILE EATING; LOPRESSOR ORDERED. PT AND FAMILY HAVE QUESTIONS REGARDING COMMODE FOR HOME AND FOR ADDITIONAL HELP AT HOME, CARE MANAGEMENT NOTIFIED AND WILL BE FOLLOWING UP WITH FAMILY.
[2023-06-20] MEDS ORDERED: Metoprolol Tartrate 25 MG Tab PO ONE (12:10)
--- NOTE | 2023-06-20 12:10 | NUR ---
DR KENYON CALLED FOR HEART RATE 130'S-150'S/AFIB. ONE TIME DOSE OF METOPROLOL ORDERED.
[2023-06-20] MEDS ORDERED: Peg 400/Hypromellose/Glycerin 15 DROP/ML BTL BOTHEYES PRN (14:20)
[2023-06-20] MEDS ORDERED: dilTIAZem HCL 125 MG in Dextrose 5% 100 ML IV SCH (14:50)
--- NOTE | 2023-06-20 14:51 | NUR ---
DR KENYON CALLED REGARDING HEART RATE. PT UP IN CHAIR SITTING RESTFULLY. HEART RATE 120-150. BP STABLE, PT W/O COMPLAINTS. CARDIZEM RESTARTED PER DR KENYON; STARTED AT 5MG/HR.
--- NOTE | 2023-06-20 18:20 | NUR ---
PATIENTS HEART RATE HAS REMAINED AROUND [address] KENYON UPDATED. PT PCU STATUS.
--- NOTE | 2023-06-20 19:15 | NUR ---
ASSUMPTION OF CARE RECEIVED INTO CARE, BEDSIDE REPORT GIVEN BY DAY RN. BRYAN GTT INFUSING AND CHECKED WITH EMAR. PT AWAKE LYING IN BED WATCHING TV, ALERT AND ORIENTED. VSS, IN AFIB, ON 2LNC. PUREWICK INSITU. NO VOICED CONCERNS AT THIS TIME. CALL STAPLETON IN REACH. SEE SHIFT ASSESSMENT FOR FURTHER DETAILS.
[2023-06-20] MEDS ORDERED: Metoprolol Succinate 50 MG TABCR PO SCH (21:00)
[2023-06-21] VITALS (11 sets, daily range): BP systolic 123–149; BP diastolic 84–113
[2023-06-21 03:45] LABS: Bun/Creatinine Ratio 21.1 (12.0-20.0); Creatinine, Blood 1.42 mg/dL (0.40-1.00); Potassium, Blood 4.7 mmol/L (3.5-5.5)
--- NOTE | 2023-06-21 06:04 | NUR ---
SHIFT SUMMARY ALERT AND ORIENTED. HARDLY SLEPT THROUGHOUT NIGHT DUE TO WRONG DOSING OF HS MEDS. DENIES PAIN. REMAINS IN AFIB, CARDIZEM GTT ON SB, HR 80S, SBP 120-140S. ON 2L NC SPO2>92%, CHEST DECREASED. PUREWICK IN PLACE 650ML URINE OUT. GOOD ORAL INTAKE. REMAINS LYING IN BED WITH EYES CLOSED, RESPS EASY AND UNLABOURED. NO VOICED CONCERNS AT THIS TIME. CALL STAPLETON IN REACH.
--- NOTE | 2023-06-21 08:34 | NUR ---
CARE OF PT ASSUMED AT 0700. PT AWAKE AND ALERT. STATES SHE DID NOT SLEEP MUCH LAST NIGHT, DENIES C/O PAIN. PT STATES SHE FEELS BETTER OVERALL TODAY. CARDIZEM GTT WAS TURNED OFF LAST NIGHT. PT IS IN AFIB W RATE 70-100. ECHO ORDERED FOR TODAY. BP STABLE. LUNGS W SCATTERED EXP WHEEZES, DIMINISHED TO BASES. SATS >95% ON 2L VIA N/C. DR ARAUJO IN TO SEE PT. PLAN IS TO KEEP PT ANOTHER DAY. PT NOW MED STATUS W TELE.
--- NOTE | 2023-06-21 15:46 | NUR ---
REPORT GIVEN TO MERLE BURKETT. PT TRANSFERED TO ROOM 357 IN STABLE CONDITION.
--- NOTE | 2023-06-21 18:11 | NUR ---
SHIFT SUMMARY: ASSUMED CARE OF PATIENT UPON HER TRANSFER FROM ICU AT 1600, WAS ABLE TO TRANSFER FROM W/C TO BED WITH MIN ASSIST. SHE IS A&O X 4, PLEASANT AND COOPERATIVE. CURRENTLY ON ROOM AIR, NO COUGH NOTED. PLACED ON TELEMETRY, AFIB IN THE LOW 100'S. PUREWICK PLACED PER PATIENT REQUEST, URINE IS CLEAR, PALE YELLOW. HAS GOOD BED MOBILITY, NO SKIN ISSUES OBSERVED. WORKING WITH PT. PLAN IS D/C HOME TOMORROW.
[2023-06-21] MEDS ORDERED: Melatonin 5 MG Tablet PO SCH (21:00)
[2023-06-22 04:37] VITALS: BP 160/96
[2023-06-22 05:03] LABS: BASOPHILS ABSOLUTE AUTO 0.03 K/mm3 (0.00-0.23); BASOPHILS PERCENT AUTO 0 % (0-2); EOSINOPHILS ABSOLUTE AUTO 0.03 K/mm3 (0.00-0.68); EOSINOPHILS PERCENT AUTO 0 % (0-6); Hemoglobin 11.4 g/dL (11.5-16.0); IMMATURE GRAN ABSOLUTE AUTO 0.11 K/mm3 (0.00-0.10); IMMATURE GRAN PERCENT AUTO 1 % (0-1); LYMPHOCYTES PERCENT AUTO 16 % (21-46); MONOCYTES ABSOLUTE AUTO 1.06 K/mm3 (0.16-1.47); MONOCYTES PERCENT AUTO 8 % (4-13); Mean Corpuscular HGB 31.1 pg (26.0-34.0); Mean Corpuscular HGB Conc 32.6 g/dL (31.5-36.5); Mean Corpuscular Volume 95 fL (80-100); Mean Platelet Volume 10.1 fL (9.1-12.4); NEUTROPHILS ABSOLUTE AUTO 10.42 K/mm3 (1.96-9.15); NEUTROPHILS PERCENT AUTO 75 % (41-73); Platelet Count 225 K/mm3 (150-400); RDW Coefficient Variation 13.7 % (11.7-14.2); RDW Standard Deviation 47.8 fL (35.1-46.3); Red Blood Cell Count 3.67 M/mm3 (3.80-5.20); White Blood Cell Count 13.85 K/mm3 (4.00-11.30)
[2023-06-22 05:32] LABS: Bun/Creatinine Ratio 31.5 (12.0-20.0); Calcium, Blood 8.9 mg/dL (8.5-10.1); Creatinine, Blood 1.24 mg/dL (0.40-1.00); Potassium, Blood 3.7 mmol/L (3.5-5.5)
--- NOTE | 2023-06-22 06:43 | NUR ---
Shift Summary No acute changes overnight, she slept comfortably t/o the night. She has an occasional productive cough. No edema in the lower extremities which pt states is a significant improvement from when she arrived. She is AOx4, cooperative with care.
[2023-06-22 07:49] VITALS: BP 146/91
[2023-06-22 09:56] VITALS: BP 152/106
[2023-06-22] MEDS ORDERED: Vitamin D1000 UNI1 PO (11:51)
[2023-06-22] MEDS ORDERED: METO50ER PO (11:51)
[2023-06-22] MEDS ORDERED: TRAZ100 PO (11:52)
[2023-06-22] MEDS ORDERED: PRED20 PO (11:55)
[2023-06-22] MEDS ORDERED: ALBU90OI INH (11:55)
[2023-06-22] MEDS ORDERED: FLUTICASONE-SA1 EAC2 INH (11:56)
--- NOTE | 2023-06-22 12:50 | NUR ---
DISCHARGE NOTE- PT WAS GIVEN VERBAL AND WRITTEN DISCHARGE INSTRUCTIONS AND ACKNOWLEDGED UNDERSTANDING OF THEM. PT ON ROOM AIR SATS IN THE 90'S ON VITALS. NO S&S OF DISTRESS NOTED AT THE TIME OF DISCHARGE. PT WAS ASSISTED WITH A SPOUNGE BATH PRIOR TO DISCHARGE AND DENIED ANY INCREASED SOB AT THAT TIME WELL. PT ESCORTED OUT VIA WC BY THE SALES SUPPORT MANAGER.
== END 2023-06-22 12:32 | disposition home or self-care (01) | DRG 291 ==
LOC: ER 14:24 → ICUE 16:12 → MEDS 16:12 → ICUE 18:45 → MEDS 06-21 16:14 → ENPENDDIS 06-22 11:12 → MEDS 06-22 12:32
PROVIDERS: Emergency Medicine; Internal Medicine; ADMIT Internal Medicine
PROC: 5A09357 Assistance with Respiratory Ventilation, Less than 24 Consecutive Hours, Continuous Positive Airway Pressure (ICD-10-PCS; principal; 2023-06-19)
DX: I13.0 Hypertensive heart and chronic kidney disease with heart failure and stage 1 through stage 4 chronic kidney disease, or unspecified chronic kidney disease (principal); I50.33 Acute on chronic diastolic (congestive) heart failure; J96.01 Acute respiratory failure with hypoxia; J44.1 Chronic obstructive pulmonary disease with (acute) exacerbation; N17.9 Acute kidney failure, unspecified; I25.10 Atherosclerotic heart disease of native coronary artery without angina pectoris; I48.91 Unspecified atrial fibrillation; E66.01 Morbid (severe) obesity due to excess calories; G47.33 Obstructive sleep apnea (adult) (pediatric); N18.30 Chronic kidney disease, stage 3 unspecified; T50.1X6A Underdosing of loop [high-ceiling] diuretics, initial encounter; Z96.653 Presence of artificial knee joint, bilateral; Z96.641 Presence of right artificial hip joint; Z88.2 Allergy status to sulfonamides; Z79.01 Long term (current) use of anticoagulants; Z11.52 Encounter for screening for COVID-19; Z91.138 Patient's unintentional underdosing of medication regimen for other reason
CPT/HCPCS: 0241U; 36415; 71045; 80048; 80053; 82803; 82947; 83735; 83880; 84484; 85025; 94640; 94645; 94660; 94664; 94760; 94762; 96365; 96366; 96375; 96376; 97110; 97162; 97530; 99285-25; A9270; C8929; C9113; J2060; J2930; J7512; Q9957

== ENCOUNTER 2023-10-23 19:34 | Emergency (ER) | payer OTHER ==
[~2023-10-23] VITALS: Ht 152.4 cm; Wt 89.8 kg
[~2023-10-23 19:34] MED LIST changes: +ALBU90OI INH; +DILTIAZEM PO; +FLUTICASONE-SA1 EAC2 INH; +MELATONIN5 M1 PO; +METO50ER PO; +Potassium Chlo20 ME1 PO; +SOAANZ20 M3 PO; +Vitamin D1000 UNI1 PO
[2023-10-23 20:11] LABS: BASOPHILS ABSOLUTE AUTO 0.03 K/mm3 (0.00-0.23); BASOPHILS PERCENT AUTO 0 % (0-2); EOSINOPHILS ABSOLUTE AUTO 0.14 K/mm3 (0.00-0.68); EOSINOPHILS PERCENT AUTO 2 % (0-6); Hematocrit 32.7 % (33.0-51.0); Hemoglobin 10.4 g/dL (11.5-16.0); IMMATURE GRAN ABSOLUTE AUTO 0.03 K/mm3 (0.00-0.10); IMMATURE GRAN PERCENT AUTO 0 % (0-1); LYMPHOCYTES ABSOLUTE AUTO 1.61 K/mm3 (0.84-5.20); LYMPHOCYTES PERCENT AUTO 20 % (21-46); MONOCYTES PERCENT AUTO 12 % (4-13); Mean Corpuscular HGB 30.1 pg (26.0-34.0); Mean Corpuscular HGB Conc 31.8 g/dL (31.5-36.5); Mean Corpuscular Volume 95 fL (80-100); Mean Platelet Volume 9.7 fL (9.1-12.4); NEUTROPHILS ABSOLUTE AUTO 5.37 K/mm3 (1.96-9.15); NEUTROPHILS PERCENT AUTO 66 % (41-73); Platelet Count 185 K/mm3 (150-400); RDW Coefficient Variation 15.2 % (11.7-14.2); RDW Standard Deviation 52.8 fL (35.1-46.3); Red Blood Cell Count 3.46 M/mm3 (3.80-5.20); White Blood Cell Count 8.18 K/mm3 (4.00-11.30)
[2023-10-23 20:26] LABS: Albumin, Blood 3.3 g/dL (3.4-5.0); Bilirubin, Total 0.5 mg/dL (0.1-1.0); Bun/Creatinine Ratio 15.1 (12.0-20.0); Calcium, Blood 8.2 mg/dL (8.5-10.1); Creatinine, Blood 2.18 mg/dL (0.40-1.00); Globulin, Blood 3.2 g/dL (2.2-4.0); Potassium, Blood 4.3 mmol/L (3.5-5.5); Total Protein, Blood 6.5 g/dL (6.4-8.2)
[2023-10-23] MEDS ORDERED: PredniSONE 20 MG Tab PO ONE (22:30)
[2023-10-23] MEDS ORDERED: Azithromycin 250 MG Tab PO ONE (22:30)
[2023-10-23] MEDS ORDERED: Ipratropium/Albuterol SulF 2.5-0.5MG/3 ML Amp INH ONE (22:40)
[2023-10-24] MEDS ORDERED: PRED20 PO (00:37)
[2023-10-24] MEDS ORDERED: AZIT250 PO (00:37)
[2023-10-24 01:00] VITALS: BP 117/54
== END 2023-10-24 01:27 | disposition home or self-care (01) ==
LOC: ER 19:34
PROVIDERS: Student in an Organized Health Care Education/Training Program
DX: J44.1 Chronic obstructive pulmonary disease with (acute) exacerbation (principal); I13.0 Hypertensive heart and chronic kidney disease with heart failure and stage 1 through stage 4 chronic kidney disease, or unspecified chronic kidney disease; N18.30 Chronic kidney disease, stage 3 unspecified; I50.30 Unspecified diastolic (congestive) heart failure; I48.91 Unspecified atrial fibrillation; E78.5 Hyperlipidemia, unspecified; Z79.899 Other long term (current) drug therapy; Z79.51 Long term (current) use of inhaled steroids; Z88.2 Allergy status to sulfonamides
CPT/HCPCS: 71046; 80053; 83880; 85025; 93005; 93010; 94640; 94664; 99285-25; A9270; J7512

== ENCOUNTER 2024-03-30 13:16 | Emergency (ER) | payer OTHER ==
[~2024-03-30] VITALS: Ht 152.4 cm; Wt 88.5 kg
[~2024-03-30 13:16] MED LIST changes: +AZIT250 PO
[2024-03-30 14:29] LABS: Albumin, Blood 3.6 g/dL (3.4-5.0); Albumin/Globulin Ratio 1.1 (0.8-1.8); BASOPHILS ABSOLUTE AUTO 0.07 K/mm3 (0.00-0.23); BASOPHILS PERCENT AUTO 1 % (0-2); Bilirubin, Total 0.5 mg/dL (0.1-1.0); Calcium, Blood 8.9 mg/dL (8.5-10.1); Creatinine, Blood 1.43 mg/dL (0.40-1.00); EOSINOPHILS ABSOLUTE AUTO 0.37 K/mm3 (0.00-0.68); EOSINOPHILS PERCENT AUTO 6 % (0-6); Globulin, Blood 3.2 g/dL (2.2-4.0); Hematocrit 34.6 % (33.0-51.0); Hemoglobin 10.9 g/dL (11.5-16.0); IMMATURE GRAN ABSOLUTE AUTO 0.02 K/mm3 (0.00-0.10); IMMATURE GRAN PERCENT AUTO 0 % (0-1); LYMPHOCYTES ABSOLUTE AUTO 0.99 K/mm3 (0.84-5.20); LYMPHOCYTES PERCENT AUTO 15 % (21-46); MONOCYTES ABSOLUTE AUTO 0.64 K/mm3 (0.16-1.47); MONOCYTES PERCENT AUTO 10 % (4-13); Mean Corpuscular HGB 30.8 pg (26.0-34.0); Mean Corpuscular HGB Conc 31.5 g/dL (31.5-36.5); Mean Corpuscular Volume 98 fL (80-100); Mean Platelet Volume 9.7 fL (9.1-12.4); NEUTROPHILS ABSOLUTE AUTO 4.58 K/mm3 (1.96-9.15); NEUTROPHILS PERCENT AUTO 69 % (41-73); Platelet Count 234 K/mm3 (150-400); Potassium, Blood 4.1 mmol/L (3.5-5.5); RDW Coefficient Variation 14.6 % (11.7-14.2); RDW Standard Deviation 52.7 fL (35.1-46.3); Red Blood Cell Count 3.54 M/mm3 (3.80-5.20); Total Protein, Blood 6.8 g/dL (6.4-8.2); White Blood Cell Count 6.67 K/mm3 (4.00-11.30)
[2024-03-30] MEDS ORDERED: NS 1,000 ML IV SCH (14:55)
[2024-03-30 16:00] VITALS: BP 114/72
== END 2024-03-30 16:18 | disposition home or self-care (01) ==
LOC: ER 13:16
PROVIDERS: Emergency Medicine
DX: I48.91 Unspecified atrial fibrillation (principal); R00.2 Palpitations; E78.5 Hyperlipidemia, unspecified; I13.0 Hypertensive heart and chronic kidney disease with heart failure and stage 1 through stage 4 chronic kidney disease, or unspecified chronic kidney disease; N18.30 Chronic kidney disease, stage 3 unspecified; I50.30 Unspecified diastolic (congestive) heart failure
CPT/HCPCS: 71046; 80053; 83735; 84484; 85025; 93005; 93010; 96360; 99285-25; J7030

== ENCOUNTER 2024-06-16 18:54 | Inpatient (IN) | payer OTHER ==
[~2024-06-16] VITALS: Ht 152.4 cm; Wt 91.3 kg
[2024-06-16 19:18] LABS: BASOPHILS PERCENT AUTO 1 % (0-2); EOSINOPHILS ABSOLUTE AUTO 0.32 K/mm3 (0.00-0.68); EOSINOPHILS PERCENT AUTO 3 % (0-6); Hematocrit 38.6 % (33.0-51.0); Hemoglobin 12.5 g/dL (11.5-16.0); IMMATURE GRAN ABSOLUTE AUTO 0.05 K/mm3 (0.00-0.10); IMMATURE GRAN PERCENT AUTO 0 % (0-1); LYMPHOCYTES ABSOLUTE AUTO 2.54 K/mm3 (0.84-5.20); LYMPHOCYTES PERCENT AUTO 22 % (21-46); MONOCYTES ABSOLUTE AUTO 0.82 K/mm3 (0.16-1.47); MONOCYTES PERCENT AUTO 7 % (4-13); Mean Corpuscular HGB 30.7 pg (26.0-34.0); Mean Corpuscular HGB Conc 32.4 g/dL (31.5-36.5); Mean Corpuscular Volume 95 fL (80-100); Mean Platelet Volume 9.6 fL (9.1-12.4); NEUTROPHILS ABSOLUTE AUTO 7.63 K/mm3 (1.96-9.15); NEUTROPHILS PERCENT AUTO 67 % (41-73); Platelet Count 282 K/mm3 (150-400); RDW Coefficient Variation 14.4 % (11.7-14.2); RDW Standard Deviation 49.1 fL (35.1-46.3); Red Blood Cell Count 4.07 M/mm3 (3.80-5.20); White Blood Cell Count 11.46 K/mm3 (4.00-11.30)
[2024-06-16] MEDS ORDERED: Diltiazem HCl 5 MG / ML 5ML Vial ONE (19:24)
[2024-06-16] MEDS ORDERED: Diltiazem HCl 5 MG / ML 5ML Vial IV ONE (19:30)
[2024-06-16] MEDS ORDERED: Furosemide 10 MG / ML 2ML Vial IV ONE (19:30)
[2024-06-16] MEDS ORDERED: Albuterol 2.5 MG/3 ML VIAL INH SCH (19:35)
[2024-06-16] MEDS ORDERED: Ipratropium Bromide INH 0.02% 0.5 mg/2.5ML Vial INH SCH (19:35)
[2024-06-16 19:43] LABS: Albumin, Blood 4.4 g/dL (3.4-5.0); Albumin/Globulin Ratio 1.2 (0.8-1.8); Bilirubin, Total 0.9 mg/dL (0.1-1.0); Bun/Creatinine Ratio 12.7 (12.0-20.0); Creatinine, Blood 1.34 mg/dL (0.40-1.00); Globulin, Blood 3.6 g/dL (2.2-4.0); Potassium, Blood 4.2 mmol/L (3.5-5.5)
[2024-06-16 20:33] LABS: PCO2 Venous 42.9 mmHg (38-42); pH Blood Venous 7.37 (7.34-7.37)
[2024-06-16 20:34] LABS: Base Excess Venous -0.6 mmol/L; Bicarbonate Venous 23.8 mmol/L (24.0-30.0)
[2024-06-16] MEDS ORDERED: Ondansetron HCl 2 MG / ML 2ML Vial IV PRN (22:10)
[2024-06-16] MEDS ORDERED: FLU VACC TS2024-25(6MOS UP)/PF 45 MCG/0.5 ML SYRINGE IM ONE (22:10)
[2024-06-16] MEDS ORDERED: Enoxaparin 40 MG/0.4 ML SYR SC SCH (23:00)
[2024-06-16] MEDS ORDERED: MethylPREDNISolone Sod Succ 125 MG Vial IV SCH (23:00)
[2024-06-16 23:30] VITALS: BP 148/96
[2024-06-16] MEDS ORDERED: MELATONIN5 M1 PO (23:43)
[2024-06-16 23:44] VITALS: BP 138/77
[2024-06-16] MEDS ORDERED: Ipratropium/Albuterol SulF 2.5-0.5MG/3 ML Amp INH PRN (23:55)
[2024-06-17] VITALS (11 sets, daily range): BP systolic 117–149; BP diastolic 67–106
--- NOTE | 2024-06-17 | NUR ---
ARRIVAL TO PCU NOTE RECEIVED REPORT TO LINUX SYSTEM ADMINISTRATOR JEANNETTE HOLLY, PT SHORTLY ARRIVED TO PCU 11 AT 2310 06/16/24. PT STAND PIVOT FROM ER GURNEY TO PCU BED. ARRIVED A/Ox4 AND COOPERATIVE WITH COOPERATIVE WITH CARE. A LITTLE HARD OF HEARING, BUT ABLE TO MAKE HER NEEDS KNOWN. CARDIAC, TELE SHOWS AFIB 140-160'S WITH NO REPORTS OF CP, PRESSURE OR PALPITATIONS. SBP STABLE RANGING 140'S. CARDIZEM gtt STARTED IN ER AND INFUSING AT 10MG/HR. RESPIRATORY, MAINTAINING SPO2 >90% ON 2L NC. STATS SHE DOES NOT WANT TO USE BiPAP AGAIN UNLESS ITS ABSOLUTELY NEEDED. GI/, PW IN PLACE DRAINING LIGHT YELLOW URINE TO SUCTION. DENIES N/V/D OR ABD TENDERNESS AT THIS TIME. SKIN OVERALL C/D/I. 1xPIV IN RFA AND 1xPIV IN LEFT HAND. WILL CONTINUE TO PROCESS MD ORDERS. JOESPH COLON OF THIS NOTE.
[2024-06-17 01:56] LABS: Adenovirus Not Detected (NOT DETECT); Bordetella pertussis Not Detected (NOT DETECT); Chlamydophila pneumoniae Not Detected (NOT DETECT); Coronavirus 229E Not Detected (NOT DETECT); Coronavirus HKU1 Not Detected (NOT DETECT); Coronavirus NL63 Not Detected (NOT DETECT); Coronavirus OC43 Not Detected (NOT DETECT); Human Metapneumovirus Not Detected (NOT DETECT); Human Rhinovirus/Enterovirus Not Detected (NOT DETECT); Influenza A/2009-H1 Not Detected (NOT DETECT); Influenza A/H1 Not Detected (NOT DETECT); Influenza A/H3 Not Detected (NOT DETECT); Influenza B Not Detected (NOT DETECT); Mycoplasma pneumoniae Not Detected (NOT DETECT); Parainfluenza Virus 1 Not Detected (NOT DETECT); Parainfluenza Virus 2 Not Detected (NOT DETECT); Parainfluenza Virus 3 Not Detected (NOT DETECT); Parainfluenza Virus 4 Not Detected (NOT DETECT); Respiratory Syncytial Virus Not Detected (NOT DETECT); SARS-Cov-2 (COVID-19), BioFire Not Detected (NOT DETECT)
[2024-06-17] MEDS ORDERED: Acetaminophen 325 MG TABLET PO PRN (02:35)
[2024-06-17] MEDS ORDERED: Melatonin 3 MG Tab PO SCH (02:35)
[2024-06-17] MEDS ORDERED: TraZODone HCl 100 MG Tab PO SCH (02:35)
[2024-06-17 04:38] LABS: BASOPHILS ABSOLUTE AUTO 0.08 K/mm3 (0.00-0.23); BASOPHILS PERCENT AUTO 1 % (0-2); EOSINOPHILS ABSOLUTE AUTO 0.01 K/mm3 (0.00-0.68); EOSINOPHILS PERCENT AUTO 0 % (0-6); Hematocrit 35.1 % (33.0-51.0); Hemoglobin 11.3 g/dL (11.5-16.0); IMMATURE GRAN ABSOLUTE AUTO 0.06 K/mm3 (0.00-0.10); IMMATURE GRAN PERCENT AUTO 1 % (0-1); LYMPHOCYTES ABSOLUTE AUTO 0.46 K/mm3 (0.84-5.20); LYMPHOCYTES PERCENT AUTO 4 % (21-46); MONOCYTES ABSOLUTE AUTO 0.21 K/mm3 (0.16-1.47); MONOCYTES PERCENT AUTO 2 % (4-13); Mean Corpuscular HGB 30.8 pg (26.0-34.0); Mean Corpuscular HGB Conc 32.2 g/dL (31.5-36.5); Mean Corpuscular Volume 96 fL (80-100); Mean Platelet Volume 9.6 fL (9.1-12.4); NEUTROPHILS ABSOLUTE AUTO 9.96 K/mm3 (1.96-9.15); NEUTROPHILS PERCENT AUTO 92 % (41-73); Platelet Count 240 K/mm3 (150-400); RDW Coefficient Variation 14.5 % (11.7-14.2); RDW Standard Deviation 50.5 fL (35.1-46.3); Red Blood Cell Count 3.67 M/mm3 (3.80-5.20); White Blood Cell Count 10.78 K/mm3 (4.00-11.30)
[2024-06-17 05:05] LABS: Albumin/Globulin Ratio 1.3 (0.8-1.8); Bun/Creatinine Ratio 15.6 (12.0-20.0); Calcium, Blood 9.3 mg/dL (8.5-10.1); Creatinine, Blood 1.22 mg/dL (0.40-1.00); Globulin, Blood 3.1 g/dL (2.2-4.0); Potassium, Blood 3.7 mmol/L (3.5-5.5); Total Protein, Blood 7.1 g/dL (6.4-8.2)
--- NOTE | 2024-06-17 05:58 | NUR ---
SHIFT SUMMARY NO ACUTE CHANGES SINCE ARRIVAL TO PCU NOTE. SEE NOTE FOR DETAILS. WAS ABLE TO TITRATE CARDIZEM GTT TO 10MG/HR WITH HR RANGING 100-110'S. CONTINUES TO DENY CP, PRESSURE OR DIZZINESS. NO NEW ORDERS AT THIS TIME, WILL REPORT TO ONCOMING RN. JOESPH COLON OF THIS NOTE.
[2024-06-17] MEDS ORDERED: Furosemide 10 MG/ML 4ML Vial IV SCH (09:00)
[2024-06-17] MEDS ORDERED: Metoprolol Succinate 50 MG TABCR PO SCH (10:45)
--- NOTE | 2024-06-17 15:53 | NUR ---
Vanesa is an 89 year old woman recently admitted with acute on chronic diastolic CHF, acute hypoxic respiratory failure, in a-fib with RVR. She apparently lives at home alone and recently began hospice as well. She states to me at the bedside that she "refused" to take lorazepam or roxanol as ordered as the hospice nurse told her "it might make" her dizzy or sleepy. She states her fear of falling or getting hurt was too great, so she declined to take any of the comfort medications at home. This in turn exacerbated her SOB and fluid overload. The patient is alert and oriented x's 4. She recognizes she should not be living at home alone any longer, and is working on a plan for her and daughter in law to move in together. However, this is not a quick fix. Will work with patient and CM on this.
--- NOTE | 2024-06-17 17:54 | NUR ---
SHIFT SUMMARY PT REMAINS ALERT AND ORIENTED. BP STABLE. HR REMAINS IN AFIB WITH RATE LOW 100'S. O2 SATS REMAIN ABOVE 90% ON 2L NC. PT HAS DENIED ANY SOB THIS SHIFT. PT PT VOIDING USING PUREWICK DEVICE DUE TO INCONTINENCE. PT PROVIDED BATH THIS SHIFT. PT ABLE TO REPOSITION HERSELF IN THE BED INDEPENDENTLY, BUT ASSISTED NEEDED. PT UP TO CHAIR FOR EACH MEAL. WILL REPORT OFF TO ONCOMING [id number]
[2024-06-17] MEDS ORDERED: Apixaban 5 MG Tab PO SCH (21:00)
[2024-06-17] MEDS ORDERED: Atorvastatin 40 MG Tab PO SCH (21:00)
[2024-06-18 00:30] VITALS: BP 126/90
[2024-06-18 03:55] VITALS: BP 139/91
[2024-06-18 04:18] LABS: BASOPHILS ABSOLUTE AUTO 0.02 K/mm3 (0.00-0.23); BASOPHILS PERCENT AUTO 0 % (0-2); EOSINOPHILS PERCENT AUTO 0 % (0-6); Hematocrit 31.7 % (33.0-51.0); Hemoglobin 10.4 g/dL (11.5-16.0); IMMATURE GRAN ABSOLUTE AUTO 0.13 K/mm3 (0.00-0.10); IMMATURE GRAN PERCENT AUTO 1 % (0-1); LYMPHOCYTES ABSOLUTE AUTO 0.75 K/mm3 (0.84-5.20); LYMPHOCYTES PERCENT AUTO 5 % (21-46); MONOCYTES ABSOLUTE AUTO 0.87 K/mm3 (0.16-1.47); MONOCYTES PERCENT AUTO 6 % (4-13); Mean Corpuscular HGB Conc 32.8 g/dL (31.5-36.5); Mean Corpuscular Volume 94 fL (80-100); NEUTROPHILS ABSOLUTE AUTO 12.73 K/mm3 (1.96-9.15); NEUTROPHILS PERCENT AUTO 88 % (41-73); Platelet Count 214 K/mm3 (150-400); RDW Coefficient Variation 14.5 % (11.7-14.2); RDW Standard Deviation 49.3 fL (35.1-46.3); Red Blood Cell Count 3.36 M/mm3 (3.80-5.20)
[2024-06-18 04:41] LABS: Bun/Creatinine Ratio 18.6 (12.0-20.0); Calcium, Blood 8.9 mg/dL (8.5-10.1); Creatinine, Blood 1.56 mg/dL (0.40-1.00); Potassium, Blood 4.5 mmol/L (3.5-5.5)
--- NOTE | 2024-06-18 06:38 | NUR ---
SHIFT SUMMARY PATIENT ALERT AND ORIENTED X4. HAD NO COMPLAINTS OF PAIN OR SHORTNESS OF BREATH. ON 2 LITERS O2 VIA NC WITH SPO2 >90%. VITAL SIGNS STABLE. CONTINUES IN AFIB, RATE LOW 100'S, INCREASES TO THE 120'S-140'S WITH ACTIVITY BUT QUICKLY RECOVERS. NO ACUTE ISSUES NOTED OVERNIGHT. WILL CONTINUE TO MONITOR. CALL LIGHT WITHIN REACH.
[2024-06-18 08:09] VITALS: BP 130/91
[2024-06-18] MEDS ORDERED: PredniSONE 20 MG Tab PO SCH (09:00)
[2024-06-18 11:08] VITALS: BP 120/85
--- NOTE | 2024-06-18 13:16 | NUR ---
Spiritual care visit conducted. Patient is alert and pleasant. She immediately shares about her son's that happened last Tuesday. His was a result of his alcoholic lifestyle. We unpack her grief and discuss the bereavement process and how it can be complicated at times. She states that her daughter in law will continue to be her source of transportation and care even though she is going through grieving herself. She tells me that she leans into her prayers and friends for support in challenging times and finds that to be a helpful practice during her hospital stay. I provided therapeutic listening, grief support and prayer. I also encouraged self-care . Patient displayed evidence of being comforted and encouraged. I will continue to remain availalbe.
[2024-06-18] MEDS ORDERED: BUME1 PO (14:33)
[2024-06-18] MEDS ORDERED: PRED20 PO (14:47)
--- NOTE | 2024-06-18 15:00 | NUR ---
UPDATE DISCHARGE INSTRUCTIONS PROVIDED TO PT. PT EDUCATED ON NEW MEDICATIONS AND MEDICATION CHANGES. ALL QUESTIONS ANSWERED. LINCAIRE IN WITH PORTABLE O2 AND EDUCATED PT ON CHANGES. PT AWAITING RIDE AND WILL BE TAKEN OUT VIA
== END 2024-06-18 15:29 | disposition home health service (06) | DRG 291 ==
LOC: ER 18:54 → PCU 20:44 → ERHOLD 20:44 → PCU 20:44
PROVIDERS: Family Medicine; Student in an Organized Health Care Education/Training Program; ADMIT Internal Medicine
PROC: 5A09357 Assistance with Respiratory Ventilation, Less than 24 Consecutive Hours, Continuous Positive Airway Pressure (ICD-10-PCS; principal; 2024-06-16)
DX: I13.0 Hypertensive heart and chronic kidney disease with heart failure and stage 1 through stage 4 chronic kidney disease, or unspecified chronic kidney disease (principal); I50.33 Acute on chronic diastolic (congestive) heart failure; J96.01 Acute respiratory failure with hypoxia; D63.1 Anemia in chronic kidney disease; N18.30 Chronic kidney disease, stage 3 unspecified; J44.9 Chronic obstructive pulmonary disease, unspecified; E66.01 Morbid (severe) obesity due to excess calories; G47.33 Obstructive sleep apnea (adult) (pediatric); I48.91 Unspecified atrial fibrillation; E78.5 Hyperlipidemia, unspecified; Z96.653 Presence of artificial knee joint, bilateral; Z96.641 Presence of right artificial hip joint; Z88.2 Allergy status to sulfonamides; Z79.01 Long term (current) use of anticoagulants; Z68.39 Body mass index [BMI] 39.0-39.9, adult
CPT/HCPCS: 0202U; 36415; 71045; 80048; 80053; 82803; 83880; 84484; 85025; 90656; 93005; 93010; 93306; 94640; 94644; 94660; 94664; 94761; 94762; 96374; 99285-25; A9270; J1650; J1940; J2919; J7512

== ENCOUNTER 2024-06-29 22:41 | Emergency (ER) | payer OTHER ==
[~2024-06-29] VITALS: Ht 152.4 cm; Wt 87.5 kg
[~2024-06-29 22:41] MED LIST changes: +BUME1 PO
[2024-06-29] MEDS ORDERED: Metoprolol Tartrate 1 MG/ML 5 ML VIAL IV PRN (22:55)
[2024-06-29 23:16] LABS: BASOPHILS ABSOLUTE AUTO 0.04 K/mm3 (0.00-0.23); BASOPHILS PERCENT AUTO 0 % (0-2); EOSINOPHILS PERCENT AUTO 0 % (0-6); Hematocrit 35.4 % (33.0-51.0); Hemoglobin 11.2 g/dL (11.5-16.0); IMMATURE GRAN ABSOLUTE AUTO 0.18 K/mm3 (0.00-0.10); IMMATURE GRAN PERCENT AUTO 1 % (0-1); LYMPHOCYTES ABSOLUTE AUTO 0.62 K/mm3 (0.84-5.20); LYMPHOCYTES PERCENT AUTO 5 % (21-46); MONOCYTES ABSOLUTE AUTO 0.31 K/mm3 (0.16-1.47); MONOCYTES PERCENT AUTO 2 % (4-13); Mean Corpuscular HGB 30.4 pg (26.0-34.0); Mean Corpuscular HGB Conc 31.6 g/dL (31.5-36.5); Mean Corpuscular Volume 96 fL (80-100); NEUTROPHILS ABSOLUTE AUTO 11.86 K/mm3 (1.96-9.15); NEUTROPHILS PERCENT AUTO 91 % (41-73); Platelet Count 175 K/mm3 (150-400); RDW Coefficient Variation 14.2 % (11.7-14.2); Red Blood Cell Count 3.69 M/mm3 (3.80-5.20); White Blood Cell Count 13.01 K/mm3 (4.00-11.30)
[2024-06-29 23:50] LABS: Albumin, Blood 3.6 g/dL (3.4-5.0); Albumin/Globulin Ratio 1.2 (0.8-1.8); Bilirubin, Total 0.6 mg/dL (0.1-1.0); Bun/Creatinine Ratio 18.3 (12.0-20.0); Creatinine, Blood 1.31 mg/dL (0.40-1.00); Globulin, Blood 2.9 g/dL (2.2-4.0); Potassium, Blood 4.5 mmol/L (3.5-5.5); Total Protein, Blood 6.5 g/dL (6.4-8.2)
[2024-06-30 02:00] VITALS: BP 121/83
== END 2024-06-30 02:23 | disposition home or self-care (01) ==
LOC: ER 22:41
PROVIDERS: Student in an Organized Health Care Education/Training Program
DX: I48.20 Chronic atrial fibrillation, unspecified (principal); I13.0 Hypertensive heart and chronic kidney disease with heart failure and stage 1 through stage 4 chronic kidney disease, or unspecified chronic kidney disease; I50.30 Unspecified diastolic (congestive) heart failure; N18.30 Chronic kidney disease, stage 3 unspecified; E78.5 Hyperlipidemia, unspecified; Z79.01 Long term (current) use of anticoagulants; Z79.2 Long term (current) use of antibiotics; Z79.899 Other long term (current) drug therapy; Z88.2 Allergy status to sulfonamides
CPT/HCPCS: 71045; 80053; 84484; 85025; 93005; 93010; 96374; 96376; 99285-25

== ENCOUNTER 2024-07-23 10:34 | Inpatient (IN) | payer OTHER ==
[~2024-07-23] VITALS: Ht 167.6 cm; Wt 94.7 kg
[2024-07-23 11:20] LABS: BASOPHILS ABSOLUTE AUTO 0.06 K/mm3 (0.00-0.23); BASOPHILS PERCENT AUTO 1 % (0-2); EOSINOPHILS ABSOLUTE AUTO 0.13 K/mm3 (0.00-0.68); EOSINOPHILS PERCENT AUTO 2 % (0-6); Hematocrit 32.2 % (33.0-51.0); Hemoglobin 9.9 g/dL (11.5-16.0); IMMATURE GRAN ABSOLUTE AUTO 0.04 K/mm3 (0.00-0.10); IMMATURE GRAN PERCENT AUTO 1 % (0-1); LYMPHOCYTES ABSOLUTE AUTO 1.09 K/mm3 (0.84-5.20); LYMPHOCYTES PERCENT AUTO 13 % (21-46); MONOCYTES ABSOLUTE AUTO 0.62 K/mm3 (0.16-1.47); MONOCYTES PERCENT AUTO 7 % (4-13); Mean Corpuscular HGB 30.2 pg (26.0-34.0); Mean Corpuscular HGB Conc 30.7 g/dL (31.5-36.5); Mean Corpuscular Volume 98 fL (80-100); Mean Platelet Volume 9.6 fL (9.1-12.4); NEUTROPHILS ABSOLUTE AUTO 6.49 K/mm3 (1.96-9.15); NEUTROPHILS PERCENT AUTO 77 % (41-73); Platelet Count 256 K/mm3 (150-400); RDW Coefficient Variation 15.3 % (11.7-14.2); RDW Standard Deviation 54.7 fL (35.1-46.3); Red Blood Cell Count 3.28 M/mm3 (3.80-5.20); White Blood Cell Count 8.43 K/mm3 (4.00-11.30)
[2024-07-23] MEDS ORDERED: Albuterol 2.5 MG/3 ML VIAL INH SCH ×2 (11:20→14:10)
[2024-07-23] MEDS ORDERED: MethylPREDNISolone Sod Succ 125 MG Vial IV ONE (11:25)
[2024-07-23 11:31] LABS: Albumin, Blood 3.1 g/dL (3.4-5.0); Albumin/Globulin Ratio 1.1 (0.8-1.8); Bilirubin, Total 0.9 mg/dL (0.1-1.0); Bun/Creatinine Ratio 15.6 (12.0-20.0); Calcium, Blood 8.1 mg/dL (8.5-10.1); Creatinine, Blood 1.09 mg/dL (0.40-1.00); Globulin, Blood 2.8 g/dL (2.2-4.0); Potassium, Blood 3.3 mmol/L (3.5-5.5); Total Protein, Blood 5.9 g/dL (6.4-8.2)
[2024-07-23 11:50] LABS: Influenza A, PCR NEGATIVE (NEGATIVE); Influenza B, PCR NEGATIVE (NEGATIVE); Resp Syncytial Virus, PCR NEGATIVE (NEGATIVE); SARS-Cov-2 (COVID-19) PCR, MMC NEGATIVE (NEGATIVE)
[2024-07-23] MEDS ORDERED: CefTRIAXone Sodium 1,000 MG in NS 50 ML IV ONE (13:40)
[2024-07-23] MEDS ORDERED: Metoprolol Tartrate 1 MG/ML 5 ML VIAL IV ONE (14:15)
[2024-07-23] MEDS ORDERED: FLU VACC TS2024-25(6MOS UP)/PF 45 MCG/0.5 ML SYRINGE IM SCH (14:25)
[2024-07-23] MEDS ORDERED: Metoprolol Tartrate 1 MG/ML 5 ML VIAL IV PRN (14:25)
[2024-07-23] MEDS ORDERED: Azithromycin 500 MG in NS 250 ML IV SCH (14:29)
[2024-07-23] MEDS ORDERED: Potassium Chloride 20 MEQ TabCR PO ONE (14:30)
[2024-07-23 16:33] LABS: Base Excess Venous 7.2 mmol/L; Bicarbonate Venous 30.3 mmol/L (24.0-30.0); PCO2 Venous 47.8 mmHg (38-42); pH Blood Venous 7.43 (7.34-7.37)
[2024-07-23] MEDS ORDERED: MethylPREDNISolone Sod Succ 125 MG Vial IV SCH (18:00)
[2024-07-23] MEDS ORDERED: NS 1,000 ML IV SCH ×2 (20:00→21:00)
[2024-07-23] MEDS ORDERED: Apixaban 5 MG Tab PO SCH (21:00)
[2024-07-23] MEDS ORDERED: Metoprolol Succinate 50 MG TABCR PO SCH (21:00)
[2024-07-23] MEDS ORDERED: Lactobacil 2-S.Thermo-Bifido 1 1 Cap PO SCH (21:00)
[2024-07-23] MEDS ORDERED: Ipratropium/Albuterol SulF 2.5-0.5MG/3 ML Amp INH SCH (22:00)
[2024-07-23 22:45] VITALS: BP 121/105
[2024-07-23] MEDS ORDERED: ELIQUIS5 M2 PO (23:13)
[2024-07-24] VITALS (7 sets, daily range): BP systolic 110–135; BP diastolic 83–105
[2024-07-24 05:05] LABS: BASOPHILS ABSOLUTE AUTO 0.02 K/mm3 (0.00-0.23); BASOPHILS PERCENT AUTO 0 % (0-2); EOSINOPHILS PERCENT AUTO 0 % (0-6); Hematocrit 30.8 % (33.0-51.0); Hemoglobin 9.5 g/dL (11.5-16.0); IMMATURE GRAN ABSOLUTE AUTO 0.05 K/mm3 (0.00-0.10); IMMATURE GRAN PERCENT AUTO 1 % (0-1); LYMPHOCYTES ABSOLUTE AUTO 0.67 K/mm3 (0.84-5.20); LYMPHOCYTES PERCENT AUTO 9 % (21-46); MONOCYTES ABSOLUTE AUTO 0.17 K/mm3 (0.16-1.47); MONOCYTES PERCENT AUTO 2 % (4-13); Mean Corpuscular HGB 30.4 pg (26.0-34.0); Mean Corpuscular HGB Conc 30.8 g/dL (31.5-36.5); Mean Corpuscular Volume 98 fL (80-100); NEUTROPHILS PERCENT AUTO 88 % (41-73); Platelet Count 234 K/mm3 (150-400); RDW Coefficient Variation 15.4 % (11.7-14.2); RDW Standard Deviation 55.2 fL (35.1-46.3); Red Blood Cell Count 3.13 M/mm3 (3.80-5.20); White Blood Cell Count 7.81 K/mm3 (4.00-11.30)
[2024-07-24 06:12] LABS: Bun/Creatinine Ratio 20.9 (12.0-20.0); Calcium, Blood 8.9 mg/dL (8.5-10.1); Creatinine, Blood 1.15 mg/dL (0.40-1.00); Potassium, Blood 4.3 mmol/L (3.5-5.5)
--- NOTE | 2024-07-24 06:30 | NUR ---
PT STABLE THROUGHOUT SHIFT. AOX4, 2 ASSIST OOB TO CHAIR, PUREWICK IN PLACE. BED AND CHAIR ALARMS IN USE, BRAKES ON BED/CHAIR ENGAGED. PT ABLE TO USE CALL LIGHT APPROPRIATELY. PT RESPIRATORY STATUS IMPROVED THROUGHOUT THE NIGHT, PT REMAINS ON 2L O2 WHICH IS HOME SETTING. PT TOLERATING IV FLUIDS WELL W/O S/S OF FLUID OVERLOAD AT THIS TIME. PT DOES CONTINUE TO HAVE EXP WHEEZE TO RML/RLL AND DIMINISHED TO LLL. PT ANXIETY IMPROVED SOMEWHAT BUT DOES REQUIRE FREQUENT REASSURANCE.
[2024-07-24] MEDS ORDERED: Metoprolol Succinate 50 MG TABCR PO SCH ×2 (09:00→21:00)
[2024-07-24] MEDS ORDERED: Bumetanide 1 MG Tab PO SCH (09:00)
[2024-07-24] MEDS ORDERED: CefTRIAXone Sodium 1,000 MG in NS 100 ML IV SCH (12:00)
--- NOTE | 2024-07-24 12:13 | NUR ---
AM NOTE: PATIENT ALERT AND ORIENTED. SITTING UP IN RECLINER UPON SHIFT START. DENIES PAINS. UP WITH 1-2 PERSON ASSIST WT FWW/GAIT BELT. YELLOW SOCKS IN PLACE. DENIES NUMBNESS/TINGLING. PERRLA. ON 2L O2 VIA NASAL CANNULA SATING MID 90'S. WEARS 2L AT BASELINE. WHEEZING NOTED THROUGHOUT LUNGS. RESPIRATORY CARE IN FOR BREATHING TREATMENTS. SOB WITH ACITVITY. EVEN AND UNLABORED RESPIRATIONS AT REST. TELE SHOWING AFIB WIH HR 120-130'S. SBP 110'S. MILD-MOD EDEMA NOTED IN BLE. IV FLUIDS INFUSING PER EMAR. BOWEL TONES PRESENT THROUGHOUT. TOLERATING PO DIET. DENTURES IN PLACE. ATTENDS IN PLACE. UP TO BSC THIS AM, BOWEL MOVEMENT X1. PUREWICK IN PLACE WITH KOBE OUTPUT. DENIES ABDOMINAL PAIN/NAUSEA. SKIN PALE WITH SCATTERED BRUISING DUE TO LAB DRAWS. DR. BROWN TO BEDSIDE THIS AFTERNOON, THIS RN PRESENT FOR MD RANGEL. LACTIC PENDING AT MD RANGEL. LACTIC RESULTED AND DR. BROWN UPDATED VIA PHONE. CHAIR ALARM IN PLACE. CALL LIGHT IN REACH.
--- NOTE | 2024-07-24 12:27 | NUR ---
DR. BROWN BACK TO UNIT. ORDERS FOR LACTIC ACID AT 1800, DISCONTINUE PO BUMEX AND CHANGE NORMAL SALINE TO 100ML/HR CONTINUOUS. ORDERS IN PLACE. IV FLUID RATE ADJUSTED.
[2024-07-24] MEDS ORDERED: NS 1,000 ML IV SCH (12:30)
--- NOTE | 2024-07-24 17:59 | NUR ---
SHIFT SUMMARY: NO ACUTE CHANGES. PATIENT REMAINS ALERT AND ORIENTED. UP IN RECLINER MOST OF SHIFT. 1-2 PERSON TRANSFER WITH GAIT BELT AND FWW. AFIB WITH HR 110-130'S. DR. BROWN BY UNIT RECENTLY, THIS RN UPDATED ON HR AND BP TRENDS. ORDERS TO INCREASE METOPROLOL SUCCINATE TO 75 MG PO BID STARTING TONIGHT. MEDICATION ORDER UPDATED. REMAINS ON 2L NASAL CANNULA. BREATHING TREATMENTS THROUGHOUT THE DAY. UP TO BSC WITH BOWEL MOVMENT X1 THIS SHIFT. PUREWICK IN PLACE WITH KOBE URINE OUTPUT. NS CONTINUES TO INFUSE PER EMAR. LACTIC TO BE DRAWN AT 1800. CHAIR ALARM IN PLACE. CALL LIGHT IN REACH. DENIES NEEDS AT THIS TIME.
[2024-07-24] MEDS ORDERED: Atorvastatin 40 MG Tab PO SCH (21:00)
[2024-07-24] MEDS ORDERED: Melatonin 5 MG Tablet PO SCH (21:00)
[2024-07-24] MEDS ORDERED: TraZODone HCl 100 MG Tab PO SCH (21:00)
[2024-07-24] MEDS ORDERED: Acetaminophen 500 MG Tab PO PRN (21:35)
[2024-07-25] VITALS (10 sets, daily range): BP systolic 11–131; BP diastolic 75–92
[2024-07-25 04:18] LABS: BASOPHILS ABSOLUTE AUTO 0.02 K/mm3 (0.00-0.23); BASOPHILS PERCENT AUTO 0 % (0-2); EOSINOPHILS PERCENT AUTO 0 % (0-6); Hematocrit 29.5 % (33.0-51.0); Hemoglobin 9.1 g/dL (11.5-16.0); IMMATURE GRAN PERCENT AUTO 1 % (0-1); LYMPHOCYTES ABSOLUTE AUTO 0.58 K/mm3 (0.84-5.20); LYMPHOCYTES PERCENT AUTO 4 % (21-46); MONOCYTES ABSOLUTE AUTO 0.62 K/mm3 (0.16-1.47); MONOCYTES PERCENT AUTO 4 % (4-13); Mean Corpuscular HGB 30.2 pg (26.0-34.0); Mean Corpuscular HGB Conc 30.8 g/dL (31.5-36.5); Mean Corpuscular Volume 98 fL (80-100); Mean Platelet Volume 10.5 fL (9.1-12.4); NEUTROPHILS ABSOLUTE AUTO 14.46 K/mm3 (1.96-9.15); NEUTROPHILS PERCENT AUTO 92 % (41-73); Platelet Count 242 K/mm3 (150-400); RDW Coefficient Variation 15.7 % (11.7-14.2); RDW Standard Deviation 55.7 fL (35.1-46.3); Red Blood Cell Count 3.01 M/mm3 (3.80-5.20); White Blood Cell Count 15.78 K/mm3 (4.00-11.30)
[2024-07-25 04:38] LABS: Albumin, Blood 3.4 g/dL (3.4-5.0); Anion Gap 10 mmol/L (3-11); Blood Urea Nitrogen 30 mg/dL (8-24); Bun/Creatinine Ratio 18.6 (12.0-20.0); CO2, Blood 26 mmol/L (21-32); Calcium, Blood 8.8 mg/dL (8.5-10.1); Chloride, Blood 102 mmol/L (98-108); Creatinine, Blood 1.61 mg/dL (0.40-1.00); Glomerular Filtration Rate 31 (60-); Glucose, Blood 254 mg/dL (70-99); Sodium, Blood 134 mmol/L (136-145)
--- NOTE | 2024-07-25 06:01 | NUR ---
SHIFT SUMMARY PT IS A &OX4, ABLE TO MAKE NEEDS KNOWN, OBEYS COMMANDS,BLE WEAK BUT PT IS ABLE TO AMBULATE WITH 2 PERSON ASSIST AND FWW, MOVING ALL EXTREMITIES WITH PURPOSE, PT CONCRETE IN THOUGHT PROCESS. CONTINUOUS SPO2, SPO2 GREATER THAN 90% ON BASELINE 2L O2 VIA NC. LUNG BASES HAVING CRACKLES AND UPPER LOBES CLEAR, EXPRIORITY WHEEZE T/O. INCREASED SOB WITH ACTIVITY. CONTINUOUS TELE MONITORING, PT AFIB 110-130 S, BP STABLE WITH MAP GREATER THAN 65, PT DENIES CHEST P/P T/O THIS SHIFT, PULSES PRESENT T/O, EDEMA TO BLE WITH THE RIGHT GREATER THAN THE LEFT. HR INCREASES 130-150 S WITH ACTIVITY BUT DID NOT SUSTAIN FOR LONGER THAN APPROX 30 MINUTES. BOWEL TONES PRESENT IN ALL 4Q, PT DENIES ABD PAIN. PT DENIES FEELINGS OF CONSTIPATION. PUREWICK IN PLACE TO LOW CONTINUOUS SUCTION, URINE YELOW IN COLOR. BED LOWEST POSITION, CALL LIGHT IN REACH, AWAITING TO GIVE REPORT TO ONCOMING RN.
[2024-07-25] MEDS ORDERED: Protein Supplement 30 ML UD PO SCH (11:00)
[2024-07-25] MEDS ORDERED: Furosemide 10 MG/ML 4ML Vial IV ONE (12:55)
--- NOTE | 2024-07-25 15:26 | NUR ---
DR. MICHELE AT BED SIDE TO SEE THE PT. HE STATED HE WILL BE CHANGING AROUND SOME MEDICATIONS.
[2024-07-25] MEDS ORDERED: MethylPREDNISolone Sod Succ 125 MG Vial IV SCH (16:00)
[2024-07-25] MEDS ORDERED: Digoxin 0.25 MG/ML 2ML Amp IV SCH (16:00)
--- NOTE | 2024-07-25 17:49 | NUR ---
SHIFT SUMMARY THE PT IS A&OX4, 1P SBA W/ FWW, AND THE PT DOES HAVE NOTED ANXIETY W. ACTIVITY. THIS MORNING THE PT WAS VERY SOB WITH ACTIVITY, AND NEEDED DEEP BREATHING COACHING. SHE HAS REMAINS ON 2L NC W/ SP02 >93%. A 1V CHEST XR WAS OBTAINED, AND 40MG IV LASIX GIVEN AFTER ELEVATED BNP 846. PT IS BREATHING WITH MORE EASE. PRIOR TO LASIX THE PT WAS NOT VOIDING AND WHEN BLADDER SCANNED SHE HAD A SCANT AMOUNT. RENAL ULTRASOUND OBTAINED. SHE IS NOW VOIDING WITH EASE, AND USING A WICKING SYSTEM. SHE WORKED WITH OCCUPATIONAL THERAPY THIS AFTERNOON, AND PHYSICAL THERAPY SAW HER THIS MORNING. ON TELE SHE HAS BEEN AFIB 110'S-140'S. BP STABLE. DR. MICHELE IS ON THE PT'S CASE AND STARTED IV DIG AND PO AMIO TO HELP WITH RATE/RHYTHM CONTROL. PT DENIES ANY ANGINA OR CHEST PRESSURE. HER NIECES HAVE BEEN AT BEDSIDE AND UPDATED ON CARE. SEE NOTES FOR ANY UPDATES.
[2024-07-25] MEDS ORDERED: Amiodarone HCl 200 MG Tab PO SCH (21:00)
[2024-07-26] VITALS (7 sets, daily range): BP systolic 118–140; BP diastolic 77–96
[2024-07-26 04:58] LABS: BASOPHILS ABSOLUTE AUTO 0.02 K/mm3 (0.00-0.23); BASOPHILS PERCENT AUTO 0 % (0-2); EOSINOPHILS PERCENT AUTO 0 % (0-6); Hematocrit 29.6 % (33.0-51.0); Hemoglobin 9.3 g/dL (11.5-16.0); IMMATURE GRAN ABSOLUTE AUTO 0.24 K/mm3 (0.00-0.10); IMMATURE GRAN PERCENT AUTO 2 % (0-1); LYMPHOCYTES ABSOLUTE AUTO 0.65 K/mm3 (0.84-5.20); LYMPHOCYTES PERCENT AUTO 4 % (21-46); MONOCYTES ABSOLUTE AUTO 0.56 K/mm3 (0.16-1.47); MONOCYTES PERCENT AUTO 4 % (4-13); Mean Corpuscular HGB 30.9 pg (26.0-34.0); Mean Corpuscular HGB Conc 31.4 g/dL (31.5-36.5); Mean Corpuscular Volume 98 fL (80-100); Mean Platelet Volume 10.3 fL (9.1-12.4); NEUTROPHILS ABSOLUTE AUTO 13.32 K/mm3 (1.96-9.15); NEUTROPHILS PERCENT AUTO 90 % (41-73); NRBC ABSOLUTE 0.02 K/mm3 (0.00-0.02); NRBC Auto 0.1 /100 WBC (0.0-0.2); Platelet Count 235 K/mm3 (150-400); RDW Coefficient Variation 15.4 % (11.7-14.2); Red Blood Cell Count 3.01 M/mm3 (3.80-5.20); White Blood Cell Count 14.79 K/mm3 (4.00-11.30)
[2024-07-26 05:36] LABS: Bun/Creatinine Ratio 26.5 (12.0-20.0); Calcium, Blood 8.5 mg/dL (8.5-10.1); Creatinine, Blood 1.62 mg/dL (0.40-1.00); Potassium, Blood 4.9 mmol/L (3.5-5.5)
--- NOTE | 2024-07-26 06:05 | NUR ---
SHIFT SUMMARY PT IS A &OX4, ABLE TO MAKE NEEDS KNOWN, OBEYS COMMANDS,BLE WEAK BUT PT IS ABLE TO AMBULATE WITH 2 PERSON ASSIST AND FWW/MOBILITY IMPROVED SINCE PREVIOUS SHIFT, MOVING ALL EXTREMITIES WITH PURPOSE, PT DID MAKE THIS RN AWARE THAT SHE IS CONCERNED ABOUT BEING ABLE TO SLEEP WITHOUT HER TRAZODONE/PT EDUCATED ON ADVERSE REACTION WITH NEWLY PERSCRIBED AMIODARONE. CONTINUOUS SPO2, SPO2 GREATER THAN 90% ON BASELINE 2L O2 VIA NC. LUNG SOUNDS IMPROVED FROM PREVIOUS SHIFT, PT REPORTS IMPROVED WORK OF BRATHING EVEN WITH ACTIVITY. LUNG BASES DIMINISHED BUT CLEAR T/O. CONTINUOUS TELE MONITORING, PT AFIB 90-110 S, BP STABLE WITH MAP GREATER THAN 65, PT DENIES CHEST P/P T/O THIS SHIFT, PULSES PRESENT T/O, EDEMA TO BLE WITH THE RIGHT SLIGHTLY GREATER THAN THE LEFT. HR INCREASES 120-130 S WITH ACTIVITY BUT DID NOT SUSTAIN. BOWEL TONES PRESENT IN ALL 4Q, PT DENIES ABD PAIN. PT DENIES FEELINGS OF CONSTIPATION. PUREWICK IN PLACE TO LOW CONTINUOUS SUCTION, URINE YELLOW IN COLOR, PT HAVING MORE OUTPUT COMPAIRED TO PREVIOUS SHIFT. BED LOWEST POSITION, CALL LIGHT IN REACH, AWAITING TO GIVE REPORT TO ONCOMING RN.
[2024-07-26] MEDS ORDERED: Ipratropium/Albuterol SulF 2.5-0.5MG/3 ML Amp INH PRN (07:35)
[2024-07-26] MEDS ORDERED: Amiodarone HCl 200 MG Tab PO SCH (09:30)
--- NOTE | 2024-07-26 17:25 | NUR ---
SHIFT SUMMARY PT REMAINS A&O X4, IS ABLE TO MAKE NEEDS KNOWN. SHE IS IN CHRONIC AFIB WITH RATE STAYING IN THE 60'S-80'S, DIGOXIN WAS DC'D AND PO AMIODARONE GIVEN PER EMAR. BP HAS BEEN STABLE THROUGHOUT THIS SHIFT. DENIES SOB AND HER O2 CONSISTENTLY >90% ON CONTINUOUS 2L NC WHICH IS HER BASELINE. SHE CONTINUES TO HAVE GENERALIZED WEAKNESS AND IS A ONE NURSE ASSIST WITH GB AND FWW. LUNG SOUNDS THIS MORNING HAD EXPIRATORY WHEEZING IN ALL LOBES, BY END OF SHIFT HER WHEEZING HAD CLEARED IN THE UPPER LOBES AND DIMINSHED IN THE LOWER LOBES. PT'S NUTRTION IS LACKING AND SHE IS EATING VERY LITTLE. SHE CLAIMS AFTER A FEW BITES SHE HAS DISCOMFORT IN HER STOMACH. WE GAVE ALICIA MIST AND ENCOURAGED BELCHING TO GET RID OF THAT BLAOTING AND DISCOMFORT, WHICH HAS HELPED IN HER HX. SHE DENIED DINNER BUT DID TAKE HER LIQUACEL SUPPLEMEMT AND WANTS HER DINNER TRAY HELD AT THIS TIME. PT HAS PUREWICK IN PLACE ON LOW CONTINOUS SUCTION, URINE IS CLEAR AND YELLOW. IT WAS CHANGED THIS SHIFT. DR. MICHELE SAW THE PT TODAY AND IF HER HEART RATE REMAINS STABLE, IT IS, THEN SHE WOULD BE GOOD TO D/C 07/27. DR. BROWN IN AGREEMENT. THE PT HAS A SNF REFERALL AND WE ARE WAITING ON INSURANCE AUTHORIZATION AT THIS TIME. FAMILY HAS BEEN AT THE BEDSIDE AND UPDATED ON CARE. PT IS IN BED, ON THE LOWEST POSITION AND CALL LIGHT WITHIN REACH.
[2024-07-26] MEDS ORDERED: Protein Supplement 30 ML UD PO SCH (18:00)
[2024-07-26] MEDS ORDERED: MethylPREDNISolone Sod Succ 125 MG Vial IV SCH (21:00)
[2024-07-27] MEDS ORDERED: HyDROXyzine HCl 10 MG Tab PO ONE (00:25)
--- NOTE | 2024-07-27 02:09 | NUR ---
ANXIOUS EPISODE @ APPROX 0000, PT WANTING TO LEAVE AND WAS IN TEARS BECAUSE SHE COULD NOT FALL ASLEEP OR GET COMFORTABLE AFTER MULTIPLE ATTEMPTS OF STAFF ASSISTING IN REPOSITIONING IN BED AND THE RECLINER, THIS RN DEESCALATED AND CONSOLED PT, PT REQUESTING SOMETHING TO HELP HER SLEEP, CALLED DR. LONGO, GOT ORDERS FOR HYDRXYZINE, WHEN THIS RN WENT IN WITH MEDICATION PT WAS LONGER WANTING TO LEAVE AND APOLOGIZED FOR CRYING, ASSISTED PT INTO RECLINER AND PT STATED SHE WAS COMFORTABLE AND DID NOT NEED ANYTHING AT THIS TIME .
[2024-07-27 04:28] VITALS: BP 134/66
[2024-07-27 05:00] LABS: BASOPHILS ABSOLUTE AUTO 0.06 K/mm3 (0.00-0.23); BASOPHILS PERCENT AUTO 0 % (0-2); EOSINOPHILS ABSOLUTE AUTO 0.01 K/mm3 (0.00-0.68); EOSINOPHILS PERCENT AUTO 0 % (0-6); Hematocrit 33.4 % (33.0-51.0); Hemoglobin 10.4 g/dL (11.5-16.0); IMMATURE GRAN ABSOLUTE AUTO 0.58 K/mm3 (0.00-0.10); IMMATURE GRAN PERCENT AUTO 3 % (0-1); LYMPHOCYTES ABSOLUTE AUTO 1.48 K/mm3 (0.84-5.20); LYMPHOCYTES PERCENT AUTO 8 % (21-46); MONOCYTES PERCENT AUTO 9 % (4-13); Mean Corpuscular HGB 30.1 pg (26.0-34.0); Mean Corpuscular HGB Conc 31.1 g/dL (31.5-36.5); Mean Corpuscular Volume 97 fL (80-100); Mean Platelet Volume 10.6 fL (9.1-12.4); NEUTROPHILS ABSOLUTE AUTO 13.92 K/mm3 (1.96-9.15); NEUTROPHILS PERCENT AUTO 79 % (41-73); NRBC ABSOLUTE 0.06 K/mm3 (0.00-0.02); NRBC Auto 0.3 /100 WBC (0.0-0.2); Platelet Count 324 K/mm3 (150-400); RDW Coefficient Variation 15.3 % (11.7-14.2); RDW Standard Deviation 53.8 fL (35.1-46.3); Red Blood Cell Count 3.46 M/mm3 (3.80-5.20); White Blood Cell Count 17.55 K/mm3 (4.00-11.30)
[2024-07-27 05:22] LABS: Bun/Creatinine Ratio 34.2 (12.0-20.0); Calcium, Blood 9.1 mg/dL (8.5-10.1); Creatinine, Blood 1.55 mg/dL (0.40-1.00); Potassium, Blood 5.1 mmol/L (3.5-5.5)
--- NOTE | 2024-07-27 06:16 | NUR ---
SHIFT SUMMARY PT IS A &OX4, ANXIOUS AT TIMES, ABLE TO MAKE NEEDS KNOWN, OBEYS COMMANDS,BLE WEAK BUT PT IS ABLE TO AMBULATE WITH 1 PERSON ASSIST AND FWW/MOBILITY IMPROVED SINCE PREVIOUS SHIFT, MOVING ALL EXTREMITIES WITH PURPOSE. CONTINUOUS SPO2, SPO2 GREATER THAN 90% ON BASELINE 2L O2 VIA NC. LUNG BASES DIMINISHED BUT CLEAR T/O. CONTINUOUS TELE MONITORING, PT AFIB 70-80 S, BP STABLE WITH MAP GREATER THAN 65, PT DENIES CHEST P/P T/O THIS SHIFT, PULSES PRESENT T/O, EDEMA TO BLE WITH THE RIGHT SLIGHTLY GREATER THAN THE LEFT/APPEARS INCREASED SINCE PERVIOUS SHIFT. BOWEL TONES PRESENT IN ALL 4Q, PT DENIES ABD PAIN. PT DENIES FEELINGS OF CONSTIPATION. PUREWICK IN PLACE TO LOW CONTINUOUS SUCTION, URINE YELLOW IN COLOR. BED LOWEST POSITION, CALL LIGHT IN REACH, AWAITING TO GIVE REPORT TO ONCOMING RN.
[2024-07-27 08:00] VITALS: BP 143/98
--- NOTE | 2024-07-27 08:34 | NUR ---
PATIENT WANTING TO WAIT FOR BREAKFAST, WAKES TO VOICE AND TOUCH, QUICKLY BACK TO SLEEP, CALL LIGHT WITH IN REACH
[2024-07-27] MEDS ORDERED: PredniSONE 20 MG Tab PO SCH (09:00)
[2024-07-27] MEDS ORDERED: DEXTROMETHORPHAN/BENZOCAINE 1 EACH LOZENGE MT PRN (10:30)
[2024-07-27 12:25] VITALS: BP 159/90
[2024-07-27] MEDS ORDERED: Furosemide 10 MG / ML 2ML Vial IV ONE (13:35)
[2024-07-27 17:43] VITALS: BP 150/95
[2024-07-27 20:16] VITALS: BP 145/97
[2024-07-27 22:03] VITALS: BP 142/82
--- NOTE | 2024-07-27 22:19 | NUR ---
TRANSFER OF CARE PT A&O X4, CALM, COOPERATIVE TO CARE, PT ANXIOUS AT TIMES. HR IN THE 80'S, AFIB, DENIES CP/PRESSURE, NUMB/TINGLING, SBP STABLE. O2 >92% ON 2L VIA NC, PT ON 2L AT BASELINE, SOB WITH EXERTION BUT DENIES SOB AT REST. PT BILATERAL LE EDEMA. PT DIURESING WELL. PUREWICK IN PLACE, YELLOW URINE. PT MEDICAL WITH TELEMETRY STATUS. ROOM WAS AVAILABLE UPSTAIRS FOR PT. CALLED AND GAVE REPORT TO MEDICAL FLOOR RN. PT BELONGINGS GATHERED. PT BROUGHT UPSTAIRS VIA PCU BED WITH PCT.
--- NOTE | 2024-07-27 22:20 | NUR ---
Patient transfer to unit from PCU 20. Patient currently on tele. Patient currently on 2L O2 NC. Skin assessment completed with Vannessa Martel RN. Patient A&O x4. Perwick in place. Review patient shift assessment agreed with shift assessment.
[2024-07-28 00:20] VITALS: BP 151/81
[2024-07-28 04:29] VITALS: BP 153/98
--- NOTE | 2024-07-28 05:05 | NUR ---
No acute changes overnight. Patient currently on tele. Patient denies SOB, chest pain and N/V. Patient currently on 2L O2. Will continue to monitor until day shift resumes cares.
[2024-07-28 06:30] LABS: BASOPHILS ABSOLUTE AUTO 0.08 K/mm3 (0.00-0.23); BASOPHILS PERCENT AUTO 1 % (0-2); EOSINOPHILS ABSOLUTE AUTO 0.04 K/mm3 (0.00-0.68); EOSINOPHILS PERCENT AUTO 0 % (0-6); Hematocrit 31.9 % (33.0-51.0); IMMATURE GRAN ABSOLUTE AUTO 0.61 K/mm3 (0.00-0.10); IMMATURE GRAN PERCENT AUTO 5 % (0-1); LYMPHOCYTES ABSOLUTE AUTO 1.61 K/mm3 (0.84-5.20); LYMPHOCYTES PERCENT AUTO 12 % (21-46); MONOCYTES PERCENT AUTO 10 % (4-13); Mean Corpuscular HGB 29.9 pg (26.0-34.0); Mean Corpuscular HGB Conc 31.3 g/dL (31.5-36.5); Mean Corpuscular Volume 95 fL (80-100); Mean Platelet Volume 10.6 fL (9.1-12.4); NEUTROPHILS ABSOLUTE AUTO 9.66 K/mm3 (1.96-9.15); NEUTROPHILS PERCENT AUTO 73 % (41-73); NRBC ABSOLUTE 0.06 K/mm3 (0.00-0.02); NRBC Auto 0.5 /100 WBC (0.0-0.2); Platelet Count 266 K/mm3 (150-400); RDW Coefficient Variation 14.8 % (11.7-14.2); RDW Standard Deviation 51.5 fL (35.1-46.3); Red Blood Cell Count 3.35 M/mm3 (3.80-5.20)
[2024-07-28 07:04] LABS: Bun/Creatinine Ratio 40.1 (12.0-20.0); Calcium, Blood 8.7 mg/dL (8.5-10.1); Creatinine, Blood 1.47 mg/dL (0.40-1.00); Potassium, Blood 4.4 mmol/L (3.5-5.5)
[2024-07-28 07:20] VITALS: BP 138/86
--- NOTE | 2024-07-28 10:03 | NUR ---
PT WHEEZY, AND BLE EDEMA. CALLED DR BROWN. WILL REVIEW. CALLED RT FOR BREATHING TX.
[2024-07-28] MEDS ORDERED: Furosemide 10 MG / ML 2ML Vial IV ONE (10:05)
[2024-07-28 11:35] VITALS: BP 128/66
[2024-07-28] MEDS ORDERED: Acetaminophen 500 MG Tab PO PRN (13:20)
[2024-07-28 15:41] VITALS: BP 131/93
--- NOTE | 2024-07-28 17:50 | NUR ---
PT HAS BEEN QUITE PLEASANT TODAY. ASKED TO JUST STAND FOR A FEW MINUTES, WHICH I ASSISTED TO DO FOR HER. SHE DID WELL. LUNGS IMPROVED TO LIGHTLY WHEEZY THIS AFTERNOON. SHE IN CHAIR AT THIS TIME. REQUESTED ANOTHER BREATHING TREATMENT. GRANDDAUGHTER IN TO VISIT TODAY. VSS. NO NEW CONCERNS NOTED. BED IN LOW POSITION, CALL LITE IN REACH, CALLS APPROP
[2024-07-28 19:07] VITALS: BP 132/94
--- NOTE | 2024-07-28 22:53 | NUR ---
Patient requesting medication to help with sleep. MD order Trazadone 25mg PO once.
[2024-07-28] MEDS ORDERED: TraZODone HCl 50 MG Tab PO ONE (22:55)
[2024-07-29 00:58] VITALS: BP 155/96
--- NOTE | 2024-07-29 05:06 | NUR ---
No acute changes over night. Patient was aggitated partially throught the night. Patient given education for wanting to leave AMA. Patient denies SOB, chest pain, N/V. Patient current on tele Afib @ 74. Will continue to monitor until day shift resumes cares.
[2024-07-29 05:46] LABS: BASOPHILS PERCENT AUTO 1 % (0-2); EOSINOPHILS ABSOLUTE AUTO 0.05 K/mm3 (0.00-0.68); EOSINOPHILS PERCENT AUTO 0 % (0-6); Hematocrit 31.6 % (33.0-51.0); Hemoglobin 9.9 g/dL (11.5-16.0); IMMATURE GRAN ABSOLUTE AUTO 0.85 K/mm3 (0.00-0.10); IMMATURE GRAN PERCENT AUTO 6 % (0-1); LYMPHOCYTES ABSOLUTE AUTO 1.53 K/mm3 (0.84-5.20); LYMPHOCYTES PERCENT AUTO 10 % (21-46); MONOCYTES ABSOLUTE AUTO 1.36 K/mm3 (0.16-1.47); MONOCYTES PERCENT AUTO 9 % (4-13); Mean Corpuscular HGB 30.5 pg (26.0-34.0); Mean Corpuscular HGB Conc 31.3 g/dL (31.5-36.5); Mean Corpuscular Volume 97 fL (80-100); Mean Platelet Volume 9.9 fL (9.1-12.4); NEUTROPHILS ABSOLUTE AUTO 11.52 K/mm3 (1.96-9.15); NEUTROPHILS PERCENT AUTO 75 % (41-73); NRBC ABSOLUTE 0.04 K/mm3 (0.00-0.02); NRBC Auto 0.3 /100 WBC (0.0-0.2); Platelet Count 296 K/mm3 (150-400); RDW Coefficient Variation 14.8 % (11.7-14.2); RDW Standard Deviation 53.2 fL (35.1-46.3); Red Blood Cell Count 3.25 M/mm3 (3.80-5.20); White Blood Cell Count 15.41 K/mm3 (4.00-11.30)
[2024-07-29 06:04] LABS: Bun/Creatinine Ratio 36.4 (12.0-20.0); Calcium, Blood 8.9 mg/dL (8.5-10.1); Creatinine, Blood 1.54 mg/dL (0.40-1.00); Potassium, Blood 4.1 mmol/L (3.5-5.5)
[2024-07-29 06:12] LABS: BASOPHILS PERCENT MAN 0 % (0-2); EOSINOPHILS ABSOLUTE MAN 0.15 K/mm3 (0.00-0.68); EOSINOPHILS PERCENT MAN 1 % (0-6); LYMPHOCYTES % ATYPICAL MANUAL 2 % (0-0); LYMPHOCYTES ABSOLUTE MAN 1.84 K/mm3 (0.84-5.20); LYMPHOCYTES PERCENT MAN 10 % (21-46); METAMYELOCYTE ABSOLUTE MAN 0.77 K/mm3 (0.00-0.00); METAMYELOCYTE PERCENT MAN 5 % (0-0); MONOCYTES ABSOLUTE MAN 1.84 K/mm3 (0.16-1.47); MONOCYTES PERCENT MAN 12 % (4-13); NEUTROPHILS ABSOLUTE MAN 10.78 K/mm3 (1.96-9.15); SEG NEUTROPHILS PERCENT MAN 70 % (41-73); TOTAL CELLS COUNTED 100
[2024-07-29 08:36] VITALS: BP 155/100
[2024-07-29] MEDS ORDERED: Amiodarone HCl 200 MG Tab PO SCH (09:00)
[2024-07-29 12:08] VITALS: BP 122/66
--- NOTE | 2024-07-29 14:48 | NUR ---
PT HAS BEEN PLEASANT WITH ME TODAY. FAMILY IN TO VISIT TODAY. AMBULATING TO BED AND CHAIR WITH 1 MOD ASST. LUNGS IMPROVED. FINE CRACKLES IN BASES THIS AM. CONTINUES TO BE AFIB. NO NEW CONCERNS NOTED TODAY. BED IN LOW POSITION, CALL LITE IN REACH, CALLS APPROP
[2024-07-29 16:13] VITALS: BP 151/82
[2024-07-29 16:24] LABS: Base Excess Venous 9.4 mmol/L; PCO2 Venous 30.6 mmHg (38-42); pH Blood Venous 7.61 (7.34-7.37)
--- NOTE | 2024-07-29 16:54 | NUR ---
O2 REMOVED PER DR ORDERS. O2 SATS ON R.A. 92-94%
--- NOTE | 2024-07-29 17:11 | NUR ---
R/A O2 SATS AT 92%
[2024-07-29] MEDS ORDERED: Bumetanide 1 MG Tab PO SCH (18:00)
[2024-07-29 19:10] VITALS: BP 150/95
[2024-07-29] MEDS ORDERED: TraZODone HCl 100 MG Tab PO ONE (21:05)
[2024-07-29 21:09] LABS: Base Excess Venous 8.4 mmol/L; Bicarbonate Venous 30.5 mmol/L (24.0-30.0); PCO2 Venous 55.8 mmHg (38-42); pH Blood Venous 7.39 (7.34-7.37)
[2024-07-29 23:40] VITALS: BP 139/75
--- NOTE | 2024-07-30 04:36 | NUR ---
SHIFT SUMMARY: PT AOX3-4 WITH SOME CONFUSION AND FORGETFULLNESS. PT UNCOMFORTABLE ASKING TO BE REPOSITIONED REGULARLY. VERY ADAMANT ABOUT TAKING HER TRAZADONE SO SHE COULD SLEEP. UPSET THAT IT WASNT ORDERED, EXPLAINED TO PT WHY IT WAS NOT AND STILL CONTINUED TO REQUEST IT. PROVIDER NOTIFIED. PT ABLE TO AMBULATE 1PA WITH FWW AND GAIT BELT TO AND FROM CHAIR. CAN ASSIST IN ROLES. COOPERATIVE IN CARE. CURRENTLY NOT ON ANY O2 PER ORDERS. PT TOLERATING WELL. NO ACUTE EVENTS OVERNIGHT. PT IN CHAIR RESTING, CHAIR ALARM IN PLACE, CALL LIGHT IN REACH. CONTINUING CARE.
[2024-07-30 05:02] VITALS: BP 135/77
[2024-07-30 05:51] LABS: Base Excess Venous 11.1 mmol/L; Bicarbonate Venous 33.8 mmol/L (24.0-30.0); pH Blood Venous 7.51 (7.34-7.37)
[2024-07-30 06:02] LABS: Hematocrit 31.5 % (33.0-51.0); Hemoglobin 9.8 g/dL (11.5-16.0); Mean Corpuscular HGB 30.1 pg (26.0-34.0); Mean Corpuscular HGB Conc 31.1 g/dL (31.5-36.5); Mean Corpuscular Volume 97 fL (80-100); Mean Platelet Volume 10.2 fL (9.1-12.4); NRBC ABSOLUTE 0.03 K/mm3 (0.00-0.02); NRBC Auto 0.2 /100 WBC (0.0-0.2); Platelet Count 276 K/mm3 (150-400); RDW Standard Deviation 52.6 fL (35.1-46.3); Red Blood Cell Count 3.26 M/mm3 (3.80-5.20); White Blood Cell Count 17.07 K/mm3 (4.00-11.30)
[2024-07-30 06:29] LABS: Bun/Creatinine Ratio 40.9 (12.0-20.0); Calcium, Blood 8.9 mg/dL (8.5-10.1); Creatinine, Blood 1.1 mg/dL (0.40-1.00)
[2024-07-30 07:12] VITALS: BP 123/86
[2024-07-30 07:41] LABS: BAND PERCENT MAN 1 % (0-8); BASOPHILS PERCENT MAN 0 % (0-2); EOSINOPHILS PERCENT MAN 0 % (0-6); LYMPHOCYTES % ATYPICAL MANUAL 1 % (0-0); LYMPHOCYTES ABSOLUTE MAN 2.73 K/mm3 (0.84-5.20); LYMPHOCYTES PERCENT MAN 15 % (21-46); MONOCYTES ABSOLUTE MAN 1.53 K/mm3 (0.16-1.47); MONOCYTES PERCENT MAN 9 % (4-13); MYELOCYTE ABSOLUTE MAN 0.34 K/mm3 (0.00-0.00); MYELOCYTE PERCENT MAN 2 % (0-0); NEUTROPHILS ABSOLUTE MAN 12.46 K/mm3 (1.96-9.15); SEG NEUTROPHILS PERCENT MAN 72 % (41-73); TOTAL CELLS COUNTED 100
[2024-07-30] MEDS ORDERED: NS 250 ML IV PRN (11:55)
[2024-07-30 11:57] VITALS: BP 136/89
[2024-07-30 15:05] VITALS: BP 132/88
--- NOTE | 2024-07-30 16:20 | NUR ---
SHIFT SUMMARY NO ACUTE CHANGES. PT REMAINS A/Ox3, COOPERATIVE WITH CARE AND ABLE TO MAKE NEEDS KNOWN. MEDICATED PER EMAR. BREATHING TREATMENT PROVIDED BY RT FOR WHEEZING NOTED EARLY AFTERNOON, WHEEZING HAS SUBSIDED SINCE BREATHING TREATMENT. PT REMAINS ON ROOM AIR T/O DAY SATING 89-91%. PT DENIES SOB. WILL REMAIN OF O2 UNLESS PT HAS SIGNIFICANT CHANGE IN O2 LEVELS OR COGNITION PER PROVIDER ORDERS. GOOD APPETIE, BMx2 TODAY. PUREWICK REMAINS IN PLACE -RN ATTEMPTED TO REMOVE AND ENCOURAGE PT TO USE BSC BUT PT REQUESTED IT STAYS IN PLACE. 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 CRITICAL LACTIC ACID LEVELS - DR. [place]. PT CURRENTLY RESTING IN HOSPITAL BED WITH BED IN LOWEST POSITION AND CALL LIGHT WITHIN REACH - PT USES CALL LIGHT APPROPRIATELY. FAMILY VISITING AT BEDSIDE.
[2024-07-30 19:20] VITALS: BP 160/94
[2024-07-30] MEDS ORDERED: TraZODone HCl 100 MG Tab PO SCH (21:35)
[2024-07-30 23:48] VITALS: BP 154/89
--- NOTE | 2024-07-31 05:02 | NUR ---
SHIFT SUMMARY: PT AOX4 WITH SOME CONFUSION. ABLE TO FOLLOW COMMANDS AND MAKE NEEDS KNOWN. PT RESTLESS AND HAD DIFFICULTY SLEEPING. MEDICATED PER EMR. PT TOLERATING MEDS WELL. NO ACUTE EVENTS OVERNIGHT. CONTINUING CARE.
[2024-07-31 06:26] LABS: Hemoglobin 9.8 g/dL (11.5-16.0); Mean Corpuscular HGB 30.2 pg (26.0-34.0); Mean Corpuscular HGB Conc 31.6 g/dL (31.5-36.5); Mean Corpuscular Volume 95 fL (80-100); NRBC ABSOLUTE 0.04 K/mm3 (0.00-0.02); NRBC Auto 0.2 /100 WBC (0.0-0.2); Platelet Count 266 K/mm3 (150-400); RDW Coefficient Variation 15.1 % (11.7-14.2); Red Blood Cell Count 3.25 M/mm3 (3.80-5.20); White Blood Cell Count 18.09 K/mm3 (4.00-11.30)
[2024-07-31 06:44] LABS: Bun/Creatinine Ratio 31.8 (12.0-20.0); Calcium, Blood 8.8 mg/dL (8.5-10.1); Creatinine, Blood 1.29 mg/dL (0.40-1.00); Potassium, Blood 4.2 mmol/L (3.5-5.5)
[2024-07-31 06:59] VITALS: BP 165/83
[2024-07-31 08:21] LABS: BAND PERCENT MAN 3 % (0-8); BASOPHILS PERCENT MAN 0 % (0-2); EOSINOPHILS PERCENT MAN 0 % (0-6); LYMPHOCYTES % ATYPICAL MANUAL 2 % (0-0); LYMPHOCYTES ABSOLUTE MAN 2.35 K/mm3 (0.84-5.20); LYMPHOCYTES PERCENT MAN 11 % (21-46); METAMYELOCYTE ABSOLUTE MAN 0.18 K/mm3 (0.00-0.00); METAMYELOCYTE PERCENT MAN 1 % (0-0); MONOCYTES ABSOLUTE MAN 1.44 K/mm3 (0.16-1.47); MONOCYTES PERCENT MAN 8 % (4-13); MYELOCYTE ABSOLUTE MAN 0.72 K/mm3 (0.00-0.00); MYELOCYTE PERCENT MAN 4 % (0-0); NEUTROPHILS ABSOLUTE MAN 13.38 K/mm3 (1.96-9.15); SEG NEUTROPHILS PERCENT MAN 71 % (41-73); TOTAL CELLS COUNTED 100
[2024-07-31] MEDS ORDERED: Amiodarone HCl 200 MG Tab PO SCH (09:00)
[2024-07-31 09:55] LABS: Base Excess Venous 9.1 mmol/L; Bicarbonate Venous 32.1 mmol/L (24.0-30.0)
[2024-07-31 11:17] VITALS: BP 142/83
[2024-07-31] MEDS ORDERED: AcetaZOLAMIDE Sodium 500 MG Vial IV ONE (12:55)
[2024-07-31 15:28] VITALS: BP 142/87
[2024-07-31 15:29] LABS: Source, Urine Clean Catch
[2024-07-31 16:10] LABS: Appearance, Urine Clear (Clear); Bilirubin, Urine Neg (Neg); Blood, Urine Neg (Neg); Glucose Qualitative, Urine 3+ (Neg); Ketones, Urine Neg (Neg); Leukocyte Esterase, Urine 3+ (Neg); Nitrite, Urine Neg (Neg); Protein, Urine Neg (Neg); Urobilinogen, Urine NORM (Normal)
[2024-07-31 16:57] LABS: Color, Urine Pale Yellow (P-Yellow)
[2024-07-31 16:59] LABS: Bacteria Few /hpf; Squamous Epithelial Cells Few /hpf (Few); Yeast/Fungi Urine Rare /hpf
--- NOTE | 2024-07-31 17:07 | NUR ---
SHIFT SUMMARY NO ACUTE CHANGES, VITALS STABLE, PT REMAINS ON RA AND SATING BETWEEN 88-91%. EXPIRATORY WHEEZING AT TIMES, BREATHING TREATMENT EFFECTIVE IN PROVIDING RELIEF FOR PT - REPEAT CHEAST X RAY COMPLETED TODAY. URINALYSIS ALSO COMPLETED PER ORDERS DUE TO CONTINUING RISE IN WBC AND LACTIC ACID. PT TREATED PER EMAR FOR BACK PAIN. APPETITE FAIR. PT REMAINS A/Ox4 AND ABLE TO MAKE NEEDS KNOWN AND USE CALL LIGHT APPROPRIATELY. PUREWICK REMOVED AND PT ABLE TO REPORT WHEN SHE HAS TO URINATE AND IS A 1 PERSON ASSIST WITH FWW TO BSC. PT CURRENTLY RESTING IN CHAIR WITH CHAIR ALARM ON AND CALL LIGHT WITHIN REACH. PT APEARS TO BE IN NO DISTRESS.
[2024-07-31 20:06] VITALS: BP 153/87
[2024-07-31] MEDS ORDERED: TraZODone HCl 100 MG Tab PO SCH (21:00)
[2024-07-31 23:57] VITALS: BP 132/90
[2024-08-01 04:28] VITALS: BP 168/95
--- NOTE | 2024-08-01 04:44 | NUR ---
SHIFT SUMMARY: PT AOX4 WITH SOME FORGETFULNESS. PLEASANT MOOD AND AFFECT. CALLS APPROPRIATELY. TOLERATING MEDICATIONS WELL AND SATTING WELL ON RA. PT FOLLOWS COMMANDS AND IS ANXIOUS TO GO HOME. ABLE TO SLEEP THROUGH MOST OF THE NIGHT WITH LITTLE DISTURBANCE. NO ACUTE EVENTS OVERNIGHT. PT IN CHAIR SLEEPING, CALL LIGHT IN REACH, CHAIR ALARM ON. CONTINUING CARE.
[2024-08-01 05:01] LABS: Base Excess Venous 5.9 mmol/L; Bicarbonate Venous 29.5 mmol/L (24.0-30.0); PCO2 Venous 37.3 mmHg (38-42)
[2024-08-01 05:20] LABS: Hematocrit 32.3 % (33.0-51.0); Hemoglobin 10.2 g/dL (11.5-16.0); Mean Corpuscular HGB 30.1 pg (26.0-34.0); Mean Corpuscular HGB Conc 31.6 g/dL (31.5-36.5); Mean Corpuscular Volume 95 fL (80-100); Mean Platelet Volume 10.6 fL (9.1-12.4); NRBC ABSOLUTE 0.05 K/mm3 (0.00-0.02); NRBC Auto 0.3 /100 WBC (0.0-0.2); Platelet Count 270 K/mm3 (150-400); RDW Coefficient Variation 15.1 % (11.7-14.2); RDW Standard Deviation 52.4 fL (35.1-46.3); Red Blood Cell Count 3.39 M/mm3 (3.80-5.20); White Blood Cell Count 15.89 K/mm3 (4.00-11.30)
[2024-08-01 05:41] LABS: Albumin, Blood 3.4 g/dL (3.4-5.0); Albumin/Globulin Ratio 1.2 (0.8-1.8); Bilirubin, Total 0.6 mg/dL (0.1-1.0); Bun/Creatinine Ratio 29.9 (12.0-20.0); Calcium, Blood 8.9 mg/dL (8.5-10.1); Creatinine, Blood 1.27 mg/dL (0.40-1.00); Globulin, Blood 2.8 g/dL (2.2-4.0); Potassium, Blood 4.1 mmol/L (3.5-5.5); Total Protein, Blood 6.2 g/dL (6.4-8.2)
[2024-08-01 06:09] LABS: BAND PERCENT MAN 2 % (0-8); BASOPHILS PERCENT MAN 0 % (0-2); EOSINOPHILS PERCENT MAN 0 % (0-6); LYMPHOCYTES ABSOLUTE MAN 1.27 K/mm3 (0.84-5.20); LYMPHOCYTES PERCENT MAN 8 % (21-46); METAMYELOCYTE ABSOLUTE MAN 0.15 K/mm3 (0.00-0.00); METAMYELOCYTE PERCENT MAN 1 % (0-0); MONOCYTES ABSOLUTE MAN 1.27 K/mm3 (0.16-1.47); MONOCYTES PERCENT MAN 8 % (4-13); MYELOCYTE ABSOLUTE MAN 0.15 K/mm3 (0.00-0.00); MYELOCYTE PERCENT MAN 1 % (0-0); NEUTROPHILS ABSOLUTE MAN 13.02 K/mm3 (1.96-9.15); SEG NEUTROPHILS PERCENT MAN 80 % (41-73); TOTAL CELLS COUNTED 100
[2024-08-01 07:02] VITALS: BP 128/82
[2024-08-01] MEDS ORDERED: PredniSONE 20 MG Tab PO SCH (11:00)
[2024-08-01 14:46] VITALS: BP 141/87
[2024-08-01] MEDS ORDERED: PACERONE100 M1 PO (15:46)
[2024-08-01] MEDS ORDERED: AMOCLA875 PO (15:46)
[2024-08-01] MEDS ORDERED: [UNRECOGNIZED DRUG - OTHER] MT (15:47)
[2024-08-01] MEDS ORDERED: IPRAT-ALBUT 0.5-3 ML INH (15:48)
[2024-08-01] MEDS ORDERED: VISBIOME 112.51 EACH PO (15:49)
[2024-08-02 23:39] LABS: ALDOSTERONE 12.1 ng/dL
[2024-08-05 00:38] LABS: RENIN ACTIVITY <0.1 ng/mL/hr
== END 2024-08-01 16:55 | DRG 871 ==
LOC: ER 10:34 → ERHOLD 14:22 → PCU 14:22 → MEDS 14:22 → PCU 22:30 → MEDS 07-27 21:54
PROVIDERS: Emergency Medicine; Internal Medicine; ADMIT Family Medicine
PROC: 3E03329 Introduction of Other Anti-infective into Peripheral Vein, Percutaneous Approach (ICD-10-PCS; principal; 2024-07-23)
PROC: 5A09357 Assistance with Respiratory Ventilation, Less than 24 Consecutive Hours, Continuous Positive Airway Pressure (ICD-10-PCS; 2024-07-23)
DX: A41.9 Sepsis, unspecified organism (principal); I50.33 Acute on chronic diastolic (congestive) heart failure; J18.9 Pneumonia, unspecified organism; J96.21 Acute and chronic respiratory failure with hypoxia; J96.22 Acute and chronic respiratory failure with hypercapnia; R65.21 Severe sepsis with septic shock; I13.0 Hypertensive heart and chronic kidney disease with heart failure and stage 1 through stage 4 chronic kidney disease, or unspecified chronic kidney disease; J44.0 Chronic obstructive pulmonary disease with (acute) lower respiratory infection; J44.1 Chronic obstructive pulmonary disease with (acute) exacerbation; N17.9 Acute kidney failure, unspecified; E87.1 Hypo-osmolality and hyponatremia; E87.3 Alkalosis; I48.20 Chronic atrial fibrillation, unspecified; N18.30 Chronic kidney disease, stage 3 unspecified; Z66 Do not resuscitate; D63.1 Anemia in chronic kidney disease; E87.6 Hypokalemia; I08.3 Combined rheumatic disorders of mitral, aortic and tricuspid valves; G47.30 Sleep apnea, unspecified; E66.9 Obesity, unspecified; J44.9 Chronic obstructive pulmonary disease, unspecified; Z98.890 Other specified postprocedural states; Z88.2 Allergy status to sulfonamides; Z79.01 Long term (current) use of anticoagulants; Z79.899 Other long term (current) drug therapy; Z68.29 Body mass index [BMI] 29.0-29.9, adult
CPT/HCPCS: 0241U; 36415; 71045; 71046; 76770; 80048; 80053; 80069; 81001; 82088; 82803; 83605; 83735; 83880; 84145; 84244; 84443; 84484; 85025; 87040; 87086; 93005; 93010; 94640; 94644; 94645; 94664; 94760; 94762; 96374; 97110; 97162; 97165; 97530; 99285-25; A9270; J0456; J0696; J1120; J1160; J1940; J2919; J7030; J7050; J7512

== ENCOUNTER 2024-08-04 14:54 | Emergency (ER) | payer OTHER ==
[~2024-08-04] VITALS: Ht 152.4 cm; Wt 113.4 kg
[~2024-08-04 14:54] MED LIST changes: +AMOCLA875 PO; +IPRAT-ALBUT 0.5-3 ML INH; +PACERONE100 M1 PO; +VISBIOME 112.51 EACH PO; +[UNRECOGNIZED DRUG - OTHER] MT
[2024-08-04 15:37] LABS: BASOPHILS ABSOLUTE AUTO 0.05 K/mm3 (0.00-0.23); BASOPHILS PERCENT AUTO 0 % (0-2); EOSINOPHILS PERCENT AUTO 0 % (0-6); Hematocrit 32.4 % (33.0-51.0); Hemoglobin 10.3 g/dL (11.5-16.0); IMMATURE GRAN ABSOLUTE AUTO 0.57 K/mm3 (0.00-0.10); IMMATURE GRAN PERCENT AUTO 3 % (0-1); LYMPHOCYTES ABSOLUTE AUTO 0.86 K/mm3 (0.84-5.20); LYMPHOCYTES PERCENT AUTO 4 % (21-46); MONOCYTES ABSOLUTE AUTO 0.52 K/mm3 (0.16-1.47); MONOCYTES PERCENT AUTO 2 % (4-13); Mean Corpuscular HGB 30.2 pg (26.0-34.0); Mean Corpuscular HGB Conc 31.8 g/dL (31.5-36.5); Mean Corpuscular Volume 95 fL (80-100); Mean Platelet Volume 10.8 fL (9.1-12.4); NEUTROPHILS ABSOLUTE AUTO 19.34 K/mm3 (1.96-9.15); NEUTROPHILS PERCENT AUTO 91 % (41-73); Platelet Count 181 K/mm3 (150-400); RDW Coefficient Variation 15.7 % (11.7-14.2); RDW Standard Deviation 53.4 fL (35.1-46.3); Red Blood Cell Count 3.41 M/mm3 (3.80-5.20); White Blood Cell Count 21.34 K/mm3 (4.00-11.30)
[2024-08-04 15:54] LABS: Albumin, Blood 3.5 g/dL (3.4-5.0); Albumin/Globulin Ratio 1.2 (0.8-1.8); Bun/Creatinine Ratio 21.6 (12.0-20.0); Calcium, Blood 8.1 mg/dL (8.5-10.1); Creatinine, Blood 1.16 mg/dL (0.40-1.00); Potassium, Blood 4.6 mmol/L (3.5-5.5); Total Protein, Blood 6.5 g/dL (6.4-8.2)
[2024-08-04 16:24] LABS: Source, Urine Clean Catch
[2024-08-04 16:30] LABS: Appearance, Urine Clear (Clear); Bilirubin, Urine Neg (Neg); Blood, Urine 1+ (Neg); Color, Urine Yellow (P-Yellow); Glucose Qualitative, Urine 4+ (Neg); Ketones, Urine Neg (Neg); Leukocyte Esterase, Urine 1+ (Neg); Nitrite, Urine Neg (Neg); Protein, Urine 2+ (Neg); Specific Gravity, Urine 1.015 (1.003-1.022); Urobilinogen, Urine NORM (Normal)
[2024-08-04 16:39] LABS: Hyaline Casts 0-2 /lpf (0-2)
[2024-08-04 16:40] LABS: Bacteria Rare /hpf; Red Blood Cells, Urine 0-2 /hpf (0-2); Squamous Epithelial Cells Mod /hpf (Few)
[2024-08-04 16:41] LABS: Yeast/Fungi Urine Few /hpf
[2024-08-04] MEDS ORDERED: Ipratropium/Albuterol SulF 2.5-0.5MG/3 ML Amp INH ONE (17:15)
[2024-08-04 19:01] VITALS: BP 145/97
== END 2024-08-04 19:03 | disposition home or self-care (01) ==
LOC: ER 14:54
PROVIDERS: Emergency Medicine
DX: J44.9 Chronic obstructive pulmonary disease, unspecified (principal); R09.02 Hypoxemia; I12.9 Hypertensive chronic kidney disease with stage 1 through stage 4 chronic kidney disease, or unspecified chronic kidney disease; N18.30 Chronic kidney disease, stage 3 unspecified; I48.91 Unspecified atrial fibrillation; E78.5 Hyperlipidemia, unspecified; I50.30 Unspecified diastolic (congestive) heart failure; Z88.2 Allergy status to sulfonamides; Z79.899 Other long term (current) drug therapy; Z79.2 Long term (current) use of antibiotics; Z79.01 Long term (current) use of anticoagulants
CPT/HCPCS: 71045; 80053; 81001; 83880; 84484; 85025; 93005; 93010; 94640; 94664; 99285-25

== ENCOUNTER 2024-08-05 22:12 | Emergency (ER) | payer OTHER ==
[~2024-08-05] VITALS: Ht 149.9 cm; Wt 95.2 kg
[2024-08-05 23:36] LABS: BASOPHILS ABSOLUTE AUTO 0.03 K/mm3 (0.00-0.23); BASOPHILS PERCENT AUTO 0 % (0-2); EOSINOPHILS PERCENT AUTO 0 % (0-6); Hematocrit 28.9 % (33.0-51.0); Hemoglobin 9.1 g/dL (11.5-16.0); IMMATURE GRAN ABSOLUTE AUTO 0.28 K/mm3 (0.00-0.10); IMMATURE GRAN PERCENT AUTO 2 % (0-1); LYMPHOCYTES PERCENT AUTO 4 % (21-46); MONOCYTES ABSOLUTE AUTO 0.93 K/mm3 (0.16-1.47); MONOCYTES PERCENT AUTO 5 % (4-13); Mean Corpuscular HGB 30.3 pg (26.0-34.0); Mean Corpuscular HGB Conc 31.5 g/dL (31.5-36.5); Mean Corpuscular Volume 96 fL (80-100); Mean Platelet Volume 10.6 fL (9.1-12.4); NEUTROPHILS ABSOLUTE AUTO 15.29 K/mm3 (1.96-9.15); NEUTROPHILS PERCENT AUTO 89 % (41-73); Platelet Count 139 K/mm3 (150-400); RDW Coefficient Variation 15.9 % (11.7-14.2); RDW Standard Deviation 54.6 fL (35.1-46.3); White Blood Cell Count 17.23 K/mm3 (4.00-11.30)
[2024-08-06 00:01] LABS: Albumin, Blood 3.3 g/dL (3.4-5.0); Albumin/Globulin Ratio 1.2 (0.8-1.8); Bilirubin, Total 0.8 mg/dL (0.1-1.0); Bun/Creatinine Ratio 21.2 (12.0-20.0); Creatinine, Blood 1.18 mg/dL (0.40-1.00); Globulin, Blood 2.7 g/dL (2.2-4.0)
[2024-08-06 00:28] LABS: Influenza A, PCR NEGATIVE (NEGATIVE); Influenza B, PCR NEGATIVE (NEGATIVE); SARS-Cov-2 (COVID-19) PCR, MMC NEGATIVE (NEGATIVE)
[2024-08-06 00:38] LABS: Resp Syncytial Virus, PCR POSITIVE (NEGATIVE)
[2024-08-06 01:30] VITALS: BP 127/82
== END 2024-08-06 01:54 | disposition home or self-care (01) ==
LOC: ER 22:12
PROVIDERS: Emergency Medicine
DX: J21.0 Acute bronchiolitis due to respiratory syncytial virus (principal); I13.0 Hypertensive heart and chronic kidney disease with heart failure and stage 1 through stage 4 chronic kidney disease, or unspecified chronic kidney disease; N18.30 Chronic kidney disease, stage 3 unspecified; I50.40 Unspecified combined systolic (congestive) and diastolic (congestive) heart failure; J44.9 Chronic obstructive pulmonary disease, unspecified; I48.91 Unspecified atrial fibrillation; E78.5 Hyperlipidemia, unspecified; Z88.2 Allergy status to sulfonamides; Z79.01 Long term (current) use of anticoagulants; Z79.899 Other long term (current) drug therapy
CPT/HCPCS: 0241U; 71045; 80053; 83880; 84484; 85025; 93005; 93010; 99285-25

== ENCOUNTER 2024-08-08 13:18 | Emergency (ER) | payer OTHER ==
[~2024-08-08] VITALS: Ht 154.9 cm; Wt 90.7 kg
[2024-08-08 14:19] LABS: BASOPHILS ABSOLUTE AUTO 0.04 K/mm3 (0.00-0.23); BASOPHILS PERCENT AUTO 0 % (0-2); EOSINOPHILS ABSOLUTE AUTO 0.04 K/mm3 (0.00-0.68); EOSINOPHILS PERCENT AUTO 0 % (0-6); Hematocrit 30.5 % (33.0-51.0); Hemoglobin 9.6 g/dL (11.5-16.0); IMMATURE GRAN ABSOLUTE AUTO 0.25 K/mm3 (0.00-0.10); IMMATURE GRAN PERCENT AUTO 2 % (0-1); LYMPHOCYTES ABSOLUTE AUTO 0.78 K/mm3 (0.84-5.20); LYMPHOCYTES PERCENT AUTO 5 % (21-46); MONOCYTES ABSOLUTE AUTO 0.64 K/mm3 (0.16-1.47); MONOCYTES PERCENT AUTO 4 % (4-13); Mean Corpuscular HGB 30.1 pg (26.0-34.0); Mean Corpuscular HGB Conc 31.5 g/dL (31.5-36.5); Mean Corpuscular Volume 96 fL (80-100); Mean Platelet Volume 10.2 fL (9.1-12.4); NEUTROPHILS ABSOLUTE AUTO 13.68 K/mm3 (1.96-9.15); NEUTROPHILS PERCENT AUTO 89 % (41-73); Platelet Count 134 K/mm3 (150-400); RDW Coefficient Variation 15.9 % (11.7-14.2); RDW Standard Deviation 55.3 fL (35.1-46.3); Red Blood Cell Count 3.19 M/mm3 (3.80-5.20); White Blood Cell Count 15.43 K/mm3 (4.00-11.30)
[2024-08-08 14:59] LABS: Albumin, Blood 3.4 g/dL (3.4-5.0); Albumin/Globulin Ratio 1.3 (0.8-1.8); Bilirubin, Total 1.1 mg/dL (0.1-1.0); Bun/Creatinine Ratio 24.1 (12.0-20.0); Calcium, Blood 8.6 mg/dL (8.5-10.1); Creatinine, Blood 1.12 mg/dL (0.40-1.00); Globulin, Blood 2.7 g/dL (2.2-4.0); Potassium, Blood 4.2 mmol/L (3.5-5.5); Total Protein, Blood 6.1 g/dL (6.4-8.2)
[2024-08-08] MEDS ORDERED: Furosemide 10 MG / ML 2ML Vial IV ONE (15:10)
[2024-08-08 16:15] VITALS: BP 108/85
== END 2024-08-08 16:57 | disposition home or self-care (01) ==
LOC: ER 13:18
PROVIDERS: Emergency Medicine
DX: I50.9 Heart failure, unspecified (principal); B97.4 Respiratory syncytial virus as the cause of diseases classified elsewhere; J44.9 Chronic obstructive pulmonary disease, unspecified; I48.91 Unspecified atrial fibrillation
CPT/HCPCS: 71045; 80053; 83880; 84145; 84484; 85025; 93005; 93010; 99285-25; J1940

== ENCOUNTER 2024-08-21 17:18 | Emergency (ER) | payer MEDICARE, OTHER ==
[~2024-08-21] VITALS: Ht 152.4 cm; Wt 106.6 kg
[2024-08-21 18:12] LABS: BASOPHILS ABSOLUTE AUTO 0.06 K/mm3 (0.00-0.23); BASOPHILS PERCENT AUTO 1 % (0-2); EOSINOPHILS ABSOLUTE AUTO 0.14 K/mm3 (0.00-0.68); EOSINOPHILS PERCENT AUTO 2 % (0-6); Hemoglobin 8.6 g/dL (11.5-16.0); IMMATURE GRAN ABSOLUTE AUTO 0.04 K/mm3 (0.00-0.10); IMMATURE GRAN PERCENT AUTO 1 % (0-1); LYMPHOCYTES ABSOLUTE AUTO 1.46 K/mm3 (0.84-5.20); LYMPHOCYTES PERCENT AUTO 19 % (21-46); MONOCYTES ABSOLUTE AUTO 0.94 K/mm3 (0.16-1.47); MONOCYTES PERCENT AUTO 12 % (4-13); Mean Corpuscular HGB Conc 30.7 g/dL (31.5-36.5); Mean Corpuscular Volume 94 fL (80-100); Mean Platelet Volume 9.8 fL (9.1-12.4); NEUTROPHILS ABSOLUTE AUTO 5.16 K/mm3 (1.96-9.15); NEUTROPHILS PERCENT AUTO 66 % (41-73); Platelet Count 275 K/mm3 (150-400); RDW Coefficient Variation 15.9 % (11.7-14.2); RDW Standard Deviation 54.4 fL (35.1-46.3); Red Blood Cell Count 2.97 M/mm3 (3.80-5.20)
[2024-08-21 18:31] LABS: Albumin, Blood 3.9 g/dL (3.4-5.0); Albumin/Globulin Ratio 1.6 (0.8-1.8); Bun/Creatinine Ratio 15.2 (12.0-20.0); Calcium, Blood 9.2 mg/dL (8.5-10.1); Creatinine, Blood 1.78 mg/dL (0.40-1.00); Globulin, Blood 2.5 g/dL (2.2-4.0); Potassium, Blood 3.5 mmol/L (3.5-5.5); Total Protein, Blood 6.4 g/dL (6.4-8.2)
[2024-08-21 20:26] VITALS: BP 127/89
== END 2024-08-21 22:35 | disposition left against medical advice (07) ==
LOC: ER 17:18
PROVIDERS: Student in an Organized Health Care Education/Training Program
DX: R06.02 Shortness of breath (principal); R05.9 Cough, unspecified; R60.0 Localized edema; R79.9 Abnormal finding of blood chemistry, unspecified; D64.9 Anemia, unspecified; N18.32 Chronic kidney disease, stage 3b; Z53.21 Procedure and treatment not carried out due to patient leaving prior to being seen by health care provider
CPT/HCPCS: 36415; 71260; 80048; 80053; 82728; 83540; 83550; 83880; 85025; 93005; 93010; 93971; 99283-25; Q9967